=== PATIENT | male | born 1950 | race Caucasian/White ===

== ENCOUNTER 2016-11-01 15:34 | Inpatient (IN) | payer MEDICARE ==
[~2016-11-01] VITALS: Ht 172.7 cm; Wt 76.8 kg
[~2016-11-01 15:34] MED LIST: ASPI81 PO; CLOP75 PO; COMBAER INH; DIGO50SO PO; DOXY100T OR; TRIA.1%T TOP; Z.0.OXYGEN INH; [UNRECOGNIZED DRUG - CODE] XX
[2016-11-01 15:53] VITALS: BP 115/66; PULSE 78; RESP 16
[2016-11-01] MEDS ORDERED: SODIUM CHLORID 0.9% 500 ML INJ 500 ML IV ONE (16:15)
[2016-11-01] MEDS ORDERED: SODIUM CHLORIDE 0.9% FLUSH 10 ML FLUSH IVF PRN (16:15)
--- NOTE | 2016-11-01 16:26 | PD ---
HPI Chief Complaint: General Weakness Time Seen by Provider: 16:18 Travel History International Travel<30 days: No Contact w/Intl Traveler<30days: No Traveled to known affect area: No History of Present Illness HPI Patient is a 65-year-old male presenting to emergency department for evaluation of hypotension, fall, headache. Patient is a poor historian he [facility] he took his medications as he normally would and his blood pressure [facility] the [facility] was 85/55 and he was sent to the emergency department for evaluation. However per EMS report patient had a fall yesterday , and today he continues to have a frontal headache. Patient reports that he is supposed to be on Coumadin but he was not given a prescription upon discharge after he had his stroke 3 weeks ago. Patient has medical records with him that show he supposed be on 10 mg of Coumadin daily when he was discharged from [facility]. Patient went to rehabilitation for 6 days, and signed out AMA. Patient had a CVA with hemorrhage in August. His past medical history also includes hypertension, COPD, hyperlipidemia, congestive heart failure, A. fib, pacemaker defibrillator, CABG. PFSH Past Medical History Hx Anticoagulant Therapy: Yes Arthritis: No Asthma: No Atrial Fibrillation: Yes Autoimmune Disease: No Blood Disorders: No Anxiety: No Depression: No Cancer: No Cardiac Catheterization: Yes High Cholesterol: Yes Chemotherapy: No Chest Pain: Yes Congestive Heart Failure: Yes COPD: Yes Cerebrovascular Accident: Yes Coronary Artery Disease: Yes Diabetes: No Diminished Hearing: No Endocrine: No Gastrointestinal Disorders: No GERD: No Glaucoma: No Genitourinary: No Headaches: No Hepatitis: No Hiatal Hernia: No Hypertension: No Immune Disorder: No Implanted Vascular Access Dvce: Yes Kidney Stones: No Musculoskeletal: No Neurologic: No Psychiatric: No Reproductive: No Respiratory: Yes Migraines: No Myocardial Infarction: Yes Radiation Therapy: No Renal Failure: No Seizures: No Sickle Cell Disease: No Sleep Apnea: No Thyroid Disease: No Ulcer: No PNEUMOCCOCAL Vaccine (Year): 2010 Past Surgical History Abdominal Surgery: No AICD: No Appendectomy: No Arteriovenous Shunt: No Body Medical Devices: CLIENT HAS A TENS UNIT Cardiac Surgery: Yes (CABG) Cholecystectomy: No Coronary Artery Bypass Graft: Yes (QUADRUPLE BYPASS 2006) Ear Surgery: No Endocrine Surgery: No Eye Surgery: No Genitourinary Surgery: No Gynecologic Surgery: No Hysterectomy: Yes Insulin Pump: No Joint Replacement: No Oral Surgery: No Pacemaker: No Thoracic Surgery: No Tonsillectomy: Yes Other Surgery: Yes (CABG-QUADRUPLE) Social History Alcohol Use: Yes (OCCASIONAL BEER) Tobacco Use: No (QUIT SMOKING ABOUT TWELVE MONTHS AGO, smoked for 40 years.) Substance Use: No Allergies-Medications (Allergen,Severity, Reaction): Coded Allergies: No Known Allergies (Verified , 04/17/11) Reported Meds & Prescriptions Reported Meds & Active Scripts Active Review of Systems Except as stated in HPI: all other systems reviewed are Neg General / Constitutional: No: Fever, Chills Eyes: No: Blurred Vision HENT: Positive: Headaches, No: Neck Pain Cardiovascular: Positive: Chest Pain or Discomfort Respiratory: No: Shortness of Breath, Wheezing Gastrointestinal: No: Nausea Genitourinary: No: Urgency Musculoskeletal: No: Myalgias Physical Exam Narrative GENERAL: Well-developed, well-nourished, elderly male. Resting comfortably in no acute distress. SKIN: Focused skin assessment warm/dry. HEAD: Atraumatic. Normocephalic. EYES: Pupils equal and round. No scleral icterus. No injection or drainage. ENT: No nasal bleeding or discharge. Mucous membranes pink and moist. NECK: Trachea midline. No JVD. CARDIOVASCULAR: Regular rate and rhythm. No murmur appreciated. RESPIRATORY: No accessory muscle use. Clear to auscultation. Breath sounds equal bilaterally. GASTROINTESTINAL: Abdomen soft, non-tender, nondistended. Hepatic and splenic margins not palpable. MUSCULOSKELETAL: No obvious deformities. No clubbing. No cyanosis. No edema. NEUROLOGICAL: Awake and alert. No obvious cranial nerve deficits. 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 Slow speech. PSYCHIATRIC: Appropriate mood and affect; insight and judgment normal. Data Data Last Documented VS Vital Signs Date Time Temp Pulse Resp B/P Pulse Ox O2 Delivery O2 Flow Rate FiO2 11/01/16 16:54 76 16 115/65 94 Nasal Cannula 3 Orders Electrocardiogram (11/01/16 16:11) Complete Blood Count With Diff (11/01/16 16:11) Comprehensive Metabolic Panel (11/01/16 16:11) Creatine Kinase (Cpk) (11/01/16 16:11) Prothrombin Time / Inr (Pt) (11/01/16 16:11) Act Partial Throm Time (Ptt) (11/01/16 16:11) Troponin I (11/01/16 16:11) Urinalysis - C+S If Indicated (11/01/16 16:11) Chest, Single Ap (11/01/16 16:11) Ct Brain W/O Iv Contrast(Rout) (11/01/16 16:11) Blood Glucose (11/01/16 16:11) Ecg Monitoring (11/01/16 16:11) Iv Access Insert/Monitor (11/01/16 16:11) Oximetry (11/01/16 16:11) Sodium Chloride 0.9% Flush (Ns Flush) (11/01/16 16:15) Sodium Chlorid 0.9% 500 Ml Inj (Ns 500 M (11/01/16 16:15) Urine Culture (11/01/16 16:42) Consult Neurology (11/01/16 ) Mri Brain W&W/O Contrast (11/01/16 ) Mra Carotids W Contrast (11/01/16 ) Sodium Chlor 0.9% 1000 Ml Inj (Ns 1000 M (11/01/16 18:00) Admit To Inpatient (11/01/16 ) Vital Signs (Adult) Q4H (11/01/16 18:18) Neuro Checks Q4H (11/01/16 18:18) Labs Laboratory Tests Test 11/01/16 11/01/16 16:10 16:42 White Blood Count 7.9 TH/MM3 Red Blood Count 4.68 MIL/MM3 Hemoglobin 13.3 GM/DL Hematocrit 40.8 % Mean Corpuscular Volume 87.3 FL Mean Corpuscular Hemoglobin 28.4 PG Mean Corpuscular Hemoglobin 32.6 % Concent Red Cell Distribution Width 15.7 % Platelet Count 206 TH/MM3 Mean Platelet Volume 8.5 FL Neutrophils (%) (Auto) 65.4 % Lymphocytes (%) (Auto) 21.0 % Monocytes (%) (Auto) 9.5 % Eosinophils (%) (Auto) 3.3 % Basophils (%) (Auto) 0.8 % Neutrophils # (Auto) 5.2 TH/MM3 Lymphocytes # (Auto) 1.7 TH/MM3 Monocytes # (Auto) 0.8 TH/MM3 Eosinophils # (Auto) 0.3 TH/MM3 Basophils # (Auto) 0.1 TH/MM3 CBC Comment DIFF FINAL Differential Comment Prothrombin Time 12.1 SEC Prothromb Time International 1.1 RATIO Ratio Activated Partial 29.2 SEC Thromboplast Time Sodium Level 142 MEQ/L Potassium Level 3.7 MEQ/L Chloride Level 102 MEQ/L Carbon Dioxide Level 31.5 MEQ/L Anion Gap 9 MEQ/L Blood Urea Nitrogen 10 MG/DL Creatinine 0.98 MG/DL Estimat Glomerular Filtration 77 ML/MIN Rate Random Glucose 89 MG/DL Calcium Level 8.6 MG/DL Total Bilirubin 0.5 MG/DL Aspartate Amino Transf 19 U/L (AST/SGOT) Alanine Aminotransferase 13 U/L (ALT/SGPT) Alkaline Phosphatase 65 U/L Total Creatine Kinase 62 U/L Troponin I 0.10 NG/ML Total Protein 6.5 GM/DL Albumin 3.2 GM/DL Urine Color LIGHT-YELLOW Urine Turbidity CLEAR Urine pH 5.0 Urine Specific [place] 1.008 Urine Protein NEG mg/dL Urine Glucose (UA) NEG mg/dL Urine Ketones NEG mg/dL Urine Occult Blood NEG Urine Nitrite NEG Urine Bilirubin NEG Urine Urobilinogen LESS THAN 2.0 MG/DL Urine Leukocyte Esterase NEG Urine WBC LESS THAN 1 /hpf Urine Bacteria RARE /hpf Urine Hyaline Casts 13 /lpf Urine Mucus FEW /lpf Microscopic Urinalysis Comment CATH-CULTURE IND MDM Medical Decision Making Medical Screen Exam Complete: Yes Emergency Medical Condition: Yes Interpretation(s) Vital Signs Date Time Temp Pulse Resp B/P Pulse Ox O2 Delivery O2 Flow Rate FiO2 11/01/16 15:59 93 Nasal Cannula 3 11/01/16 15:53 78 16 115/66 Differential Diagnosis Hemorrhage versus embolism versus hypotension due to medications versus sepsis versus other Narrative Course Patient is a 65-year-old male [facility] for evaluation of hypot[facility]. Additionally patient had a fall yesterday and complains of a headache. Patient is a poor historian, some of this history is obtained from medical records sent with him as well as EMS report. Patient's medical records state that he should have been discharged on Coumadin 10 mg daily, patient states that he was not given any Coumadin to take at home. Patient's vital signs are stable, he is oxygen dependent normally. 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 Patient has slight residual weakness in the left hand. CT today revealed an acute left occipital infarct with possible small focal areas of hemorrhage. This was discussed with Dr. Aubrey masters, he requested MRI of the brain and MRA of the carotids. These orders were placed. Additionally patient's troponin was elevated at 0.10, urine shows rare bacteria with the reflex cultures pending. Chemistry is otherwise unremarkable. CBC is unremarkable. He was given an additional liter of IV fluids, his vital signs remained stable. EKG shows electronic ventricular paced rhythm with a rate of 71. Hospitalist page for admission Dr. Driver return page and was informed of acute findings. She accepted admission, orders placed. Diagnosis Primary Impression: Acute occipital temporal infarction Additional Impressions: Elevated troponin I level COPD (chronic obstructive pulmonary disease) Qualified Code: J44.9 - Chronic obstructive pulmonary disease, unspecified COPD type Hypertension Qualified Code: I10 - Essential hypertension Admitting Information Admitting Physician Requests: Admit Condition: Stable Anna Morrow [facility] Nov 01, 2016 16:26
--- NOTE | 2016-11-01 16:35 | RADRPT ---
EXAM DATE/TIME: 11/01/2016 16:11 [facility] COMPARISON: No previous studies available for comparison. INDICATIONS : Syncope, short of breath, headache, weakness MEDICAL HISTORY : Stroke. Cardiovascular disease. SURGICAL HISTORY : CABG. Coronary artery stent. Pacemaker. ENCOUNTER: Initial ACUITY: 1 day PAIN SCORE: 10/10 LOCATION: Bilateral chest FINDINGS: The cardiac silhouette is normal in transverse diameter. Median sternotomy wires are present. The todd gs are free of acute parenchymal opacity. No effusions are identified. A biventricular defibrillator is in place via a left sided approach. CONCLUSION: 1. Cardiomegaly. No acute pulmonary disease. Santi Estevez MD on November 01, 2016 at 16:33 Board Certified Radiologist. This report was verified electronically.
[2016-11-01 16:52] LABS: AUTOMATED NEUTROPHIL # 5.2 TH/MM3 (1.8-7.7); BASOPHIL # 0.1 TH/MM3 (0-0.2); BASOPHIL % 0.8 % (0.0-2.0); EOSINOPHIL # 0.3 TH/MM3 (0-0.4); EOSINOPHIL % 3.3 % (0.0-4.0); HEMATOCRIT 40.8 % (39.0-51.0); HEMO FLAGS DIFF FINAL; LYMPHOCYTE # 1.7 TH/MM3 (1.0-4.8); MEAN CELL VOLUME 87.3 FL (80.0-100.0); MEAN CORPUSCULAR HEMOGLOBIN 28.4 PG (27.0-34.0); MEAN CORPUSCULAR HGB CONC 32.6 % (32.0-36.0); MONO % 9.5 % (0.0-8.0); NEUT % 65.4 % (16.0-70.0); PLATELET COUNT 206 TH/MM3 (150-450); RED BLOOD COUNT 4.68 MIL/MM3 (4.50-5.90); RED CELL DISTRIBUTION WIDTH 15.7 % (11.6-17.2); WHITE BLOOD COUNT 7.9 TH/MM3 (4.0-11.0)
[2016-11-01 16:54] VITALS: BP 115/65; PULSE 76; RESP 16; O2SAT 94
[2016-11-01 17:11] LABS: ANION GAP 9 MEQ/L (5-15); AST (GOT) 19 U/L (15-37); BICARBONATE 31.5 MEQ/L (21.0-32.0); BLOOD UREA NITROGEN 10 MG/DL (7-18); CHLORIDE 102 MEQ/L (98-107); GLOMERULAR FILTRATION RATE 77 ML/MIN (>89); POTASSIUM 3.7 MEQ/L (3.5-5.1); SODIUM (NA) 142 MEQ/L (136-145)
[2016-11-01 17:14] LABS: APTT (PATIENT) 29.2 SEC (24.3-30.1); INTERNATIONAL NORMALIZED RATIO 1.1 RATIO; PROTHROMBIN TIME - PATIENT 12.1 SEC (9.8-11.6)
[2016-11-01 17:15] LABS: ALKALINE PHOSPHATASE 65 U/L (45-117); ALT (GPT) 13 U/L (12-78); TOTAL BILIRUBIN ADULT 0.5 MG/DL (0.2-1.0)
--- NOTE | 2016-11-01 17:15 | RADRPT ---
EXAM DATE/TIME: 11/01/2016 17:07 [facility] COMPARISON: CT BRAIN W/O CONTRAST, August 24, 2010, 3:23. INDICATIONS : Head trauma with headache. RADIATION DOSE: 41.40 CTDIvol (mGy) MEDICAL HISTORY : Cerebrovascular disease. Stroke SURGICAL HISTORY : None. ENCOUNTER: Initial ACUITY: 2 days PAIN SCALE: 4/10 LOCATION: cranial TECHNIQUE: Multiple contiguous axial images were obtained of the head. Using automated exposure control and adj ustment of the mA and/or kV according to patient size, radiation dose was kept as low as reasonably a chievable to obtain optimal diagnostic quality images. FINDINGS: There are findings of acute infarct involving the mesial left occipital lobe in the left posterior ce rebral artery distribution with scattered areas of increased density which may reflect focal areas of hemorrhage. There is no mass effect or midline shift. No extra-axial fluid collections are identifie d. Old infarct is present in the right cerebellar hemisphere. CONCLUSION: 1. Acute left occipital infarct with possible small focal areas of hemorrhage. Santi Estevez MD on November 01, 2016 at 17:12 Board Certified Radiologist. This report was verified electronically.
[2016-11-01 17:18] LABS: BACTERIA, URINE RARE /hpf; BLOOD, URINE NEG (NEG); GLUCOSE,URINE NEG (NEG); HYALINE CAST, URINE 13 /lpf (RARE); KETONE, URINE NEG (NEG); MUCUS URINE FEW /lpf (OCC); NITRITE,URINE NEG (NEG); URINE COLOR LIGHT-YELLOW (YELLW/STRAW)
[2016-11-01 17:21] LABS: COMMENT (UR) CATH-CULTURE IND; CULTURE IF INDICATED CATH CULTURE IND
[2016-11-01 17:31] LABS: CREATINE KINASE 62 U/L (39-308)
[2016-11-01] MEDS ORDERED: SODIUM CHLOR 0.9% 1000 ML INJ 1,000 ML IV ONE (18:00)
[2016-11-01] MEDS ORDERED: SODIUM CHLORIDE 0.9% FLUSH 10 ML FLUSH IV FLUSH PRN (18:30)
[2016-11-01] MEDS ORDERED: ONDANSETRON HCL 4 MG/2 ML VIAL IVP PRN (18:30)
[2016-11-01] MEDS ORDERED: MAGNESIUM HYDROXIDE SUSP 30 ML CUP PO PRN (18:30)
[2016-11-01] MEDS ORDERED: ACETAMINOPHEN 325 MG TAB PO PRN (18:30)
[2016-11-01 18:45] VITALS: BP 121/74; PULSE 77; RESP 16; O2SAT 98
[2016-11-01 19:00] VITALS: BP 121/66; PULSE 90; RESP 18; TEMP 98.3; O2SAT 99
[2016-11-01] MEDS ORDERED: ASPI81TA11 PO (19:06)
[2016-11-01] MEDS ORDERED: IPRASOL INH (19:06)
[2016-11-01] MEDS ORDERED: LOSA50TA PO (19:06)
[2016-11-01] MEDS ORDERED: SYMB160A INH (19:06)
[2016-11-01] MEDS ORDERED: CARV3.12 PO (19:09)
[2016-11-01] MEDS ORDERED: GUAI400T8 PO (19:13)
[2016-11-01] MEDS ORDERED: POTA1TAB4 PO (19:13)
[2016-11-01] MEDS ORDERED: LISI2.5T3 PO (19:13)
[2016-11-01] MEDS ORDERED: VIAG50TA PO (19:15)
[2016-11-01] MEDS ORDERED: FURO1TAB62 PO (19:16)
--- NOTE | 2016-11-01 20:23 | HHI.HP ---
[facility] Primary Care Physician Unknown Admission Diagnosis CVA, ELEVATED TROPONIN Diagnoses: (1) Elevated troponin I level Diagnosis: Principal (2) Acute occipital temporal infarction Diagnosis: Principal Chief Complaint: ' my blood pressure was low'. Travel History International Travel<30 Days: No Contact w/Intl Traveler <30 Da: No Traveled to Known Affected Are: No History of Present Illness patient is a 65 y/o male with history of recent CVA, CAD- s/p CABG, [facility]. he says that he was recently admitted to the [facility] because of the stroke. he was discharged to rehab and then he went home.he says that he's had some headache and blurred vision over the past few days. he's had some residual weakness of the left arm. he says that he had a [facility] this morning when he was found to be hypotensive for which he was sent to ER. he says that he was told that he would be placed on coumadin but ' he never got it'. he says that he had a fall last night but he denies any prodromal symptoms and he didn't lose the consciousness. he says that he just tripped and fell. Review of Systems Constitutional: DENIES: Fever, Weight loss, Chills, Night Sweats Eyes: COMPLAINS OF: Blurred vision, DENIES: Diplopia, Vision loss, Double Vision Ears, nose, mouth, throat: DENIES: Tinnitus, Vertigo, Throat pain, Epistaxis Respiratory: DENIES: Apneas, Cough, Snoring, Wheezing, Hemoptysis, Sputum production, Shortness of breath Cardiovascular: DENIES: Chest pain, Palpitations, Syncope, Dyspnea on Exertion , PND, Lower Extremity Edema, Orthopnea, Claudication Gastrointestinal: DENIES: Abdominal pain, Black stools, Bloody stools, Constipation, Diarrhea, Nausea, Vomiting, Difficulty Swallowing, Anorexia Genitourinary: DENIES: Urinary frequency, Urgency, Hematuria, Dysuria Musculoskeletal: DENIES: Joint pain, Muscle aches, Stiffness, Joint Swelling Integumentary: DENIES: Rash Neurologic: COMPLAINS OF: Headache, DENIES: Abnormal gait, Localized weakness , Paresthesias, Seizures, Speech Problems, Tremor, Poor Balance Psychiatric: DENIES: Anxiety, Confusion, Mood changes, Depression, Hallucinations, Agitation, Suicidal Ideation, Homicidal Ideation, Delusions Past Family Social History Past Medical History CVA CAD COPD hypertension Past Surgical History CABG Reported Medications losartan lisinopril coreg aspirin symbicort duoneb aspirin Allergies: Coded Allergies: MRI PRECAUTION (Verified Adverse Reaction, Severe, NON COMPATIBLE PACEMAKER 11/01/16 LRS, 11/01/16) Active Ordered Medications Current Medications Sodium Chloride 2 ml 2 ml UNSCH PRN IVF FLUSH AFTER USING IV ACCESS; Start 11/01 at 16:15; Stop 11/01/16 at 19:04; Status DC Sodium Chloride 500 ml @ 500 mls/hr BOLUS ONCE IV Last administered on 16:53; Start 11/01/16 at 16:15; Stop 11/01/16 at 17:14; Status DC Sodium Chloride (NS 1000 ml Inj) 1,000 ml @ 999 mls/hr BOLUS ONCE IV Last administered on 11/01/16 18:55; Start 11/01/16 at 18:00; Stop 11/01/16 at 19:00; Status DC Sodium Chloride (NS Flush) 2 ml UNSCH PRN IV FLUSH FLUSH AFTER USING IV ACCESS ; Start 11/01/16 at 18:30 Sodium Chloride (NS Flush) 2 ml BID IV FLUSH ; Start 11/01/16 at 21:00 Acetaminophen (Tylenol) 650 mg Q4H PRN PO TEMP > 100.4; Start 11/01/16 at 18:30 Ondansetron HCl (Zofran Inj) 4 mg Q6H PRN IVP NAUSEA OR VOMITING; Start at 18:30 Magnesium Hydroxide (Milk Of Magnesia Liq) 30 ml Q12H PRN PO CONSTIPATION; Start 11/01/16 at 18:30 Social History no smoking or drinking. Physical Exam Vital Signs Vital Signs Date Time Temp Pulse Resp B/P Pulse Ox O2 Delivery O2 Flow Rate FiO2 11/01/16 18:45 77 16 121/74 98 Room Air 11/01/16 16:54 76 16 115/65 94 Nasal Cannula 3 11/01/16 15:59 93 Nasal Cannula 3 11/01/16 15:53 78 16 115/66 Physical Exam GENERAL: This is a well-nourished, well-developed patient, in no apparent distress. SKIN: No rashes, ecchymoses or lesions. Cool and dry. HEAD: Atraumatic. Normocephalic. No temporal or scalp tenderness. EYES: Pupils equal round and reactive. Extraocular motions intact. No scleral icterus. No injection or drainage. ENT: Nose without bleeding, purulent drainage or septal hematoma. Throat without erythema, tonsillar hypertrophy or exudate. Uvula midline. Airway patent. NECK: Trachea midline. No JVD or lymphadenopathy. Supple, nontender, no meningeal signs. CARDIOVASCULAR: Regular rate and rhythm without murmurs, gallops, or rubs. RESPIRATORY: Clear to auscultation. Breath sounds equal bilaterally. No wheezes , rales, or rhonchi. GASTROINTESTINAL: Abdomen soft, non-tender, nondistended. No hepato-splenomegaly , or palpable masses. No guarding. MUSCULOSKELETAL: Extremities without clubbing, cyanosis, or edema. No joint tenderness, effusion, or edema noted. No calf tenderness. Negative Homans sign bilaterally. NEUROLOGICAL: Awake and alert. some left arm weakness. Laboratory Laboratory Tests Test 11/01/16 11/01/16 16:10 16:42 White Blood Count 7.9 Red Blood Count 4.68 Hemoglobin 13.3 Hematocrit 40.8 Mean Corpuscular Volume 87.3 Mean Corpuscular Hemoglobin 28.4 Mean Corpuscular Hemoglobin 32.6 Concent Red Cell Distribution Width 15.7 Platelet Count 206 Mean Platelet Volume 8.5 Neutrophils (%) (Auto) 65.4 Lymphocytes (%) (Auto) 21.0 Monocytes (%) (Auto) 9.5 Eosinophils (%) (Auto) 3.3 Basophils (%) (Auto) 0.8 Neutrophils # (Auto) 5.2 Lymphocytes # (Auto) 1.7 Monocytes # (Auto) 0.8 Eosinophils # (Auto) 0.3 Basophils # (Auto) 0.1 CBC Comment DIFF FINAL Differential Comment Prothrombin Time 12.1 Prothromb Time International 1.1 Ratio Activated Partial 29.2 Thromboplast Time Sodium Level 142 Potassium Level 3.7 Chloride Level 102 Carbon Dioxide Level 31.5 Anion Gap 9 Blood Urea Nitrogen 10 Creatinine 0.98 Estimat Glomerular Filtration 77 Rate Random Glucose 89 Calcium Level 8.6 Total Bilirubin 0.5 Aspartate Amino Transf 19 (AST/SGOT) Alanine Aminotransferase 13 (ALT/SGPT) Alkaline Phosphatase 65 Total Creatine Kinase 62 Troponin I 0.10 Total Protein 6.5 Albumin 3.2 Urine Color LIGHT-YELLOW Urine Turbidity CLEAR Urine pH 5.0 Urine Specific [place] 1.008 Urine Protein NEG Urine Glucose (UA) NEG Urine Ketones NEG Urine Occult Blood NEG Urine Nitrite NEG Urine Bilirubin NEG Urine Urobilinogen LESS THAN 2.0 Urine Leukocyte Esterase NEG Urine WBC LESS THAN 1 Urine Bacteria RARE Urine Hyaline Casts 13 Urine Mucus FEW Microscopic Urinalysis Comment CATH-CULTURE IND Date/Time Procedure Status Source Growth 11/01/16 16:42 Urine Culture Received Urine Catheterized Urine Pending Result Diagram: 11/01/16 1610 11/01/16 161 Imaging Last Impressions Head CT 11/01/161610 Signed Impressions: Service Date/Time: Tuesday, November 01, 2016 17:07 - CONCLUSION: 1. Acute left occipital infarct with possible small focal areas of hemorrhage. Santi Estevez MD Chest X-Ray 11/01/161610 Signed Impressions: Service Date/Time: Tuesday, November 01, 2016 16:11 - CONCLUSION: 1. Cardiomegaly. No acute pulmonary disease. Santi Estevez MD Assessment and Plan Assessment and Plan A/P - acute left occipital infarct with small area of hemorrhage continue with neuro-checks- consulted neurology- will consult St/PT will obtain the report of recent admission to [facility] -elevated troponin with history of CAD; no chest pain- will trend the cardiac enzymes- cardiology consulted - hypertension; hold BP meds for now due to low-normal BP's- will monitor and gradually reintroduce the BP meds -COPD with no exacerbation; resume symbicort- neb treatment as needed. -DVT prophylaxis with SCD's Discussed Condition With the patient. Physician Certification 2 Midnight Certification Type: Admission for Inpatient Services Order for Inpatient Services The services are ordered in accordance with Medicare regulations or non- Medicare payer requirements, as applicable. In the case of services not specified as inpatient-only, they are appropriately provided as inpatient services in accordance with the 2-midnight benchmark. Estimated LOS (days): 2 days is the estimated time the patient will need to remain in the hospital, assuming treatment plan goals are met and no additional complications. Post-Hospital Plan: Not yet determined Arlene Blas MD Nov 01, 2016 20:23
[2016-11-01 20:35] VITALS: BP 128/68; PULSE 79; RESP 20; TEMP 97.4; O2SAT 92
[2016-11-01] MEDS ORDERED: RESP: ALBUTEROL 2.5 MG/IPRATROPIUM 0.5 MG NEB (PRN) NEB (21:00)
[2016-11-01] MEDS: SODIUM CHLOR 0.9% 1000 ML INJ 1,000 ML IV SCH (21:00)
[2016-11-01] MEDS: SODIUM CHLORIDE 0.9% FLUSH 10 ML FLUSH IV FLUSH SCH (21:00)
[2016-11-02] VITALS (7 sets, daily range): BP systolic 112–149; BP diastolic 59–77; PULSE 79–103; RESP 16–20; TEMP 97.2–98.7; O2SAT 91–95
[2016-11-02 04:04] LABS: AUTOMATED NEUTROPHIL # 4.5 TH/MM3 (1.8-7.7); BASOPHIL # 0.1 TH/MM3 (0-0.2); EOSINOPHIL # 0.4 TH/MM3 (0-0.4); EOSINOPHIL % 5.4 % (0.0-4.0); HEMO FLAGS DIFF FINAL; LYMPH % 17.7 % (9.0-44.0); LYMPHOCYTE # 1.2 TH/MM3 (1.0-4.8); MEAN CORPUSCULAR HEMOGLOBIN 28.6 PG (27.0-34.0); MEAN CORPUSCULAR HGB CONC 32.8 % (32.0-36.0); NEUT % 65.9 % (16.0-70.0); PLATELET COUNT 189 TH/MM3 (150-450); RED BLOOD COUNT 4.48 MIL/MM3 (4.50-5.90); RED CELL DISTRIBUTION WIDTH 15.7 % (11.6-17.2); WHITE BLOOD COUNT 6.8 TH/MM3 (4.0-11.0)
[2016-11-02 04:26] LABS: BICARBONATE 29.1 MEQ/L (21.0-32.0); POTASSIUM 3.5 MEQ/L (3.5-5.1)
[2016-11-02] MEDS: SODIUM CHLOR 0.9% 1000 ML INJ 1,000 ML IV SCH (06:33)
--- NOTE | 2016-11-02 09:09 | EKG ---
Date Performed: 11/02/2016 Time Performed: 01:34:16 PTAGE: 65 years EKG: A-V sequential pacemaker. Pacemaker rhythm - no further analysis Abnormal ECG PREVIOUS TRACING : 11/01/2016 17.52 DOCTOR: Braydon Shepherd Interpretating Date/Time 11/02/2016 09:08:57
[2016-11-02] MEDS: SODIUM CHLORIDE 0.9% FLUSH 10 ML FLUSH IV FLUSH SCH ×2 (09:11→20:30)
[2016-11-02] MEDS: BUDESONIDE-FORMOTEROL 160/4.5 MCG INHALER INH SCH ×2 (09:11→20:43)
--- NOTE | 2016-11-02 09:53 | EKG ---
Date Performed: 11/01/2016 Time Performed: 17:52:46 PTAGE: 65 years EKG: ELECTRONIC VENTRICULAR PACEMAKER ABNORMAL RHYTHM ECG PREVIOUS TRACING : 06/03/2012 08.44 DOCTOR: Braydon Shepherd Interpretating Date/Time 11/02/2016 09:52:43
--- NOTE | 2016-11-02 12:18 | EKG ---
Date Performed: 11/02/2016 Time Performed: 07:25:38 PTAGE: 65 years EKG: Ventricular pacing. Pacemaker rhythm - no further analysis Abnormal ECG PREVIOUS TRACING : 11/02/2016 01.34 DOCTOR: Braydon Shepherd Interpretating Date/Time 11/02/2016 12:17:11
--- NOTE | 2016-11-02 12:52 | MB ---
cc: CHARISSA MERCER MD DATE OF CONSULTATION: 11/02/2016 REASON FOR CONSULTATION History of ischemic stroke. HISTORY OF PRESENT ILLNESS Mr. Harris is a 65-year-old male who presented to the [facility] Emergency Room for evaluation of low blood pressure, headache and a fall. The patient states that he has had a stroke and was admitted to the [facility] on the first week of August and discharged on the first week of September, which he has little recollection of the events at that time but he knows that he was diagnosed with a stroke. Recently he states that he went to the [facility] and his blood pressure was low at 85/55 and referred to the emergency room for evaluation. The patient states that he is not on antiplatelets however, he should be on "Coumadin" but he did not receive the prescription after he had the stroke. The patient was referred to a rehab center and signed out AMA.The patient states that he feels numb on his left side of the body, "like a Band-Aid on my fingertips". REVIEW OF SYSTEMS A 12-point review of systems is negative except for what is stated in the HPI. PAST MEDICAL HISTORY 1. Hypertension. 2. COPD. 3. Hyperlipidemia. 4. Congestive heart failure. 5. Atrial fibrillation status pacemaker defibrillator. 6. CABG. 7. Ischemic stroke. 8. Coronary artery disease. PAST SURGICAL HISTORY 1. CABG. 2. Quadruple bypass. 3. TENS unit. 4. Tonsillectomy. SOCIAL HISTORY Drinks occasionally beer. Quit smoking 12 months ago. Smoked for 40 years and denies illicit drug abuse. ALLERGIES No known allergies. FAMILY HISTORY Noncontributory. MEDICATIONS 1. Losartan. 2. Lisinopril. 3. Coreg. 4. Aspirin. 5. Symbicort. 6. DuoNeb. PHYSICAL EXAMINATION GENERAL: Awake, alert, poor historian, not in apparent distress. HEENT: Atraumatic, normocephalic. Intact hearing with diminished vision on the right visual field. NECK: Supple. Trachea in the midline. No carotid bruits. CARDIOVASCULAR: Regular rate and rhythm. No murmurs. RESPIRATORY: Clear to auscultation. No added sounds. MUSCULOSKELETAL: Moves all extremities equally without cyanosis or clubbing. NEUROLOGIC: Awake, alert, oriented to time, person and place. Mild slurred and slow speech. Cranial nerves II-XII are grossly intact. Pupils are equal, reacting to light. Normal external ocular motility. No facial asymmetry. However, right-sided visual field is diminished. EXTREMITIES: Upper extremities: 5/5 bilateral and symmetrical. Lower extremities: Questionable 5-/5 right hip flexion inconsistent, reflexes 2+ bilateral and symmetrical. Plantars are bilateral downgoing. Gocfzx-em-lwkt and hsct-av-qjms are bilateral symmetrical. LABORATORY DATA White blood cells 7.9, hemoglobin 13.3, MCV 87.3, INR 1.1, sodium 142, potassium 3.7, anion gap 9, BUN 10, creatinine 0.98, calcium 8.6, GOT 19, GPT 13, CK 62, alkaline phosphatase 65. DIAGNOSTIC IMAGING STUDIES - Head CT scan without contrast revealed findings of acute infarct involving the medial left occipital lobe in the left posterior cerebral artery distribution with scattered areas of increased density which may reflect focal areas of hemorrhage. There is no mass effect or midline shift. No extra-axial fluid collection are identified. Old infarct is present in the right cerebellar hemisphere. DIAGNOSTIC IMPRESSION 1. History of ischemic stroke/no records are available. 2. Hypertension. 3. Hyperlipidemia. 4. Coronary artery disease. 5. History of atrial fibrillation. PLAN 1. Neuro checks q. four hourly. 2. Given the abnormal imaging with possible hemorrhage in the head CT scan, hold anticoagulation and antiplatelets. 3. CTA head with contrast. 4. CTA neck with contrast. 5. Elevate head of bed. 6. DVT prophylaxis with SCDs. 7. Obtain medical records from [facility]. Thank you for the opportunity to participate in the care of your patient. MD AFRICA Salinas/RADHAMES /12:06 PM /12:29 PM MICHAEL
--- NOTE | 2016-11-02 17:04 | MB ---
cc: ANABEL FERRER M.D. DATE OF CONSULTATION: 11/02/2016 REASON FOR THE CARDIOLOGY CONSULT Elevated troponin. HISTORY OF PRESENT ILLNESS This is a 65-year-old white male who was sent in by the [facility] yesterday for a blood pressure of 85 systolic. He denies any dizziness, chest pain or shortness of breath. He was admitted at [facility] last month for left- sided weakness and vision problem on the right side. He went to rehab for a week and was sent home. The day prior to admission the patient was feeding the turtles in the pond and he fell inadvertently, he got up by himself. He denied any chest pain or dizziness at that time. His cardiac history dates back to six years ago, at that time he had open heart surgery, he could not remember how many bypass grafts he might have. A tazg-lnv-n-half ago he had cardiac catheterization and it showed patent graft to the ramus and RCA. Ejection fraction was below 25%. He had biventricular pacemaker put in 5 years ago. He is known to have underlying atrial fibrillation and flutter. He denies any history of hypertension or hyperlipidemia. He was told that he is a borderline diabetic. He was a heavy smoker and quit six years ago. He is a nondrinker. After admission he was found to have borderline elevated troponin. PAST MEDICAL HISTORY 1. Chronic systolic congestive heart failure. 2. Open heart surgery. 3. Frequent PVCs. 4. Biventricular pacemaker implant. 5. Ischemic dilated cardiomyopathy. 6. COPD. 7. Type 2 diabetes. ALLERGIES NONE. FAMILY HISTORY Noncontributory. MEDICATIONS AT HOME 1. Albuterol inhaler. 2. Carvedilol. 3. Combivent. 4. Symbicort. 5. Tramadol. 6. Vitamin D3. 7. SOCIAL HISTORY Ex-smoker and nondrinker. PHYSICAL EXAMINATION VITAL SIGNS: On day of consultation showed blood pressure 121/66, pulse 90 per minute, afebrile. HEAD AND NECK EXAM: Showed normal oral exam. Neck was supple. CHEST: Showed occasional rhonchi at the lung bases. CARDIOVASCULAR: Showed normal neck veins. S1 and S2 decreased. No gross murmur. ABDOMEN: The liver and spleen not palpable. Bowel sounds normal. 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 Moving all four limbs. ASSESSMENT 1. Borderline elevated troponin with no chest pain. 2. No history of ischemic dilated cardiomyopathy and ejection fraction of 25% or less, biventricular ICD implant 5 years ago. 3. Coronary artery bypass surgery with patent saphenous venous graft to the ramus and RCA from cardiac catheterization done a yykr-hze-f-half ago. 4. Type 2 diabetes. 5. Recent admission to the hospital for CVA at [facility]. PLAN At this point with recent CVA documented by a CT scan which is suggestive of acute left occipital infarct with possible small focal area of hemorrhage, I would not recommend proceeding with cardiac catheterization which may involve anticoagulation and stenting. Eventually with the blessing of neurologist he might have to restart on Coumadin or NOAC. AMINTA inhibitor and beta-fred are contraindicated at this point because of the low blood pressure. The IV will be stopped because of the severe ischemic dilated cardiomyopathy and ejection fraction under 25%. The blood pressure now is stabilized. MD NAFISA Rosenbaum/HANK /1:54 PM /4:38 PM MICHAEL
[2016-11-02] MEDS ORDERED: ENALAPRILAT 1.25 MG/ML VIAL IV PUSH PRN (18:00)
--- NOTE | 2016-11-02 18:00 | HHI.PR ---
Subjective Remarks Patient was evaluated earlier today with occupational therapy and present. Patient wishes to eat food. Per RN patient wishes to go home as well. Patient tells me that his vision on the right is not that great and this has been going on and off for a week or so. He thinks he needs to go see an eye doctor to get prescription glasses. He denies any chest pain, palpitations, shortness of breath, nausea or vomiting. Objective Vitals Vital Signs Date Time Temp Pulse Resp B/P Pulse Ox O2 Delivery O2 Flow Rate FiO2 11/02/16 09:27 Nasal Cannula 2.00 11/02/16 04:00 97.6 88 20 137/77 91 11/02/16 00:00 97.2 79 20 125/69 91 11/01/16 23:00 Nasal Cannula 2.00 11/01/16 20:35 97.4 79 20 128/68 92 11/01/16 19:00 98.3 90 18 121/66 99 Room Air 11/01/16 19:00 90 18 97 Room Air 11/01/16 18:45 77 16 121/74 98 Room Air I/O 11/01/16 11/01/16 11/01/16 11/02/16 11/02/16 11/02/16 07:00 15:00 23:00 07:00 15:00 23:00 Output Total 1200 ml Balance -1200 ml Output Urine Total 1200 ml Result Diagram: 11/02/16 0338 11/02/16 0338 Imaging Last Impressions Head CT 11/01/16 1611 Signed Impressions: Service Date/Time: Tuesday, November 01, 2016 17:07 - CONCLUSION: 1. Acute left occipital infarct with possible small focal areas of hemorrhage. Santi Estevez MD Chest X-Ray 11/01/16 1611 Signed Impressions: Service Date/Time: Tuesday, November 01, 2016 16:11 - CONCLUSION: 1. Cardiomegaly. No acute pulmonary disease. Santi Estevez MD Objective Remarks GENERAL: This is a well-nourished, well-developed patient, in no apparent distress. Sitting at the side of the bed. CARDIOVASCULAR: Regular rate and rhythm without murmur. RESPIRATORY: Clear to auscultation. Breath sounds equal bilaterally. No wheezes GASTROINTESTINAL: Abdomen soft, non-tender, nondistended. No guarding. MUSCULOSKELETAL: Visual field exam seems to be affected on the right. Patient tends to always try to look at my fingers instead of looking straight at me during the exam. 55 muscle strength upper and lower extremities however the left upper seems to be slightly weaker than the right. Finger to nose test performed with both upper extremities however he does seem to be a little more hesitant with the left compared to the right. Extremities without clubbing, cyanosis, or edema. 5 out of 5 muscle strength in the lower extremities. NEUROLOGICAL: Awake and alert. A/P Problem List: (1) Elevated troponin I level ICD Code: R74.8 Status: Acute (2) Acute occipital temporal infarction ICD Code: I63.9 Status: Acute Assessment and Plan - acute left occipital infarct with small area of hemorrhage continue with lzhfh-ltwiyf-hfetrjufr following and recommends CT of head and neck which I have ordered. PT/ST/OT following. Records from [facility] have been requested. Hold all anticoagulation including antiplatelet therapy. -elevated troponin with history of CAD; no chest pain-cardiology evaluated the patient at this time recommends holding all fluids to 2 EF of 25%. Hold all bleeding isn't beta blockers due to low blood pressures. He does not recommend cardiac catheter. Monitor. - hypertension; hold BP meds for now due to low-normal BP's- will monitor and gradually reintroduce the BP meds. Added Vasotec as needed for elevated blood pressures. We will await recommendation from neurology on goals for blood pressure -COPD with no exacerbation; on home symbicort- neb treatment as needed. -DVT prophylaxis with SCD's. Chemical anticoagulation contraindicated at this point Discharge Planning DC pending further workup and clinical improvement. Connie Babb MD Nov 02, 2016 18:00
[2016-11-02] MEDS ORDERED: IOHEXOL 350 MG/ML 10 ML VIAL (for RAD DIAG) IV ONE (19:14)
--- NOTE | 2016-11-02 19:59 | RADRPT ---
EXAM DATE/TIME: 11/02/2016 19:12 [facility] COMPARISON: No previous studies available for comparison. INDICATIONS : Recent CVA; evaluate for occlusion. IV CONTRAST: 75 cc Omnipaque 350 (iohexol) IV ; Cumulative dose for multiple exams. RADIATION DOSE: 28.95 CTDIvol (mGy) ; Combined studies MEDICAL HISTORY : Cerebrovascular disease. Cardiovascular disease SURGICAL HISTORY : CABG ENCOUNTER: Initial ACUITY: 2 days PAIN SCALE: 3/10 LOCATION: cranial TECHNIQUE: Volumetric scanning was performed using a multi-row detector CT scanner. The data was post processed with a variety of visualization algorithms including full volume maximum intensity projection, multi -planar sliding thin slab reformation, curved planar reformation, and surface rendering techniques. Using automated exposure control and adjustment of the mA and/or kV according to patient size, radiat ion dose was kept as low as reasonably achievable to obtain optimal diagnostic quality images. FINDINGS: The A1 segment of right anterior cerebral artery is significantly hypoplastic. The right posterior ce rebral artery arises in fashion. The nondominant left vertebral artery appears to terminate in the PICA. There is no evidence of major vessel occlusion or stenosis. No aneurysm or vascular malform ation is identified. CONCLUSION: No acute [place] of [place] vascular findings. Anatomic variants as above Cortez Munguia MD on November 02, 2016 at 19:53 Board Certified Radiologist. This report was verified electronically.
--- NOTE | 2016-11-02 20:05 | RADRPT ---
EXAM DATE/TIME: 11/02/2016 19:12 [facility] COMPARISON: No previous studies available for comparison. INDICATIONS : Recent CVA; evaluate for occlusion. IV CONTRAST: 75 cc Omnipaque 350 (iohexol) IV ; Cumulative dose for multiple exams. RADIATION DOSE: 28.95 CTDIvol (mGy) ; Combined studies MEDICAL HISTORY : Cerebrovascular disease. Cardiovascular disease SURGICAL HISTORY : CABG ENCOUNTER: Initial ACUITY: 2 days PAIN SCALE: 0/10 LOCATION: neck Elevated flow velocities and ICA/CCA ratios have been found to correlate with increased degrees of vessel stenosis, calculated as percentage of diameter relative to a normal segment of distal ICA/CCA. TECHNIQUE: Volumetric scanning was performed using a multirow detector CT scanner. The data was post processed with a variety of visualization algorithms including full-volume maximum intensity projection, multip lanar sliding thin-slab reformation, curved-planar reformation, and surface-rendering techniques. Us ing automated exposure control and adjustment of the mA and/or kV according to patient size, radiatio n dose was kept as low as reasonably achievable to obtain optimal diagnostic quality images. FINDINGS: AORTIC ARCH: There is a three-vessel origin of the great vessels from the aorta. No evidence of ostial narrowing. RIGHT CAROTID: The common carotid artery is intact. The carotid bulb has a normal configuration without ulceration o r narrowing. The internal carotid artery is markedly tortuous in the high neck. The lumen is smooth w ithout stenosis. The external carotid artery is intact. LEFT CAROTID: The common carotid artery is intact. The carotid bulb has a normal configuration without ulceration or narrowing. The internal carotid artery is markedly tortuous in the high neck. There is a small sa ccular aneurysm arising from the medial wall of the vessel at the level of the base of C2. This lesio n measures 5 mm. Otherwise, the vessel is intact and without stenosis. The external carotid artery i s intact. VERTEBRALS: The vertebral arteries are patent bilaterally, right side dominant CONCLUSION: No evidence of carotid stenosis. 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 There is no evidence of stenosis or dissection. Cortez Munguia MD on November 02, 2016 at 19:57 Board Certified Radiologist. This report was verified electronically.
[2016-11-03] VITALS (7 sets, daily range): BP systolic 105–129; BP diastolic 63–78; PULSE 71–92; RESP 18–20; TEMP 94.6–97.6; O2SAT 94–95
[2016-11-03] MEDS: SODIUM CHLORIDE 0.9% FLUSH 10 ML FLUSH IV FLUSH SCH ×2 (09:00→20:03)
[2016-11-03] MEDS: BUDESONIDE-FORMOTEROL 160/4.5 MCG INHALER INH SCH ×2 (09:00→20:04)
--- NOTE | 2016-11-03 11:33 | PD.CARD.PN ---
Subjective Subjective Remarks hypotension resolved, no CP or SOB, poor recent memory boone about his meds at home Objective Vital Signs / I&O Vital Signs Date Time Temp Pulse Resp B/P Pulse Ox O2 Delivery O2 Flow Rate FiO2 11/03/16 04:49 97.4 75 18 105/64 95 11/03/16 00:34 97.6 92 18 127/78 95 11/02/16 21:20 98.7 86 20 124/62 95 11/02/16 20:00 Nasal Cannula 2.00 11/02/16 20:00 103 11/02/16 16:00 97.5 92 16 149/61 93 11/02/16 12:00 97.9 85 16 136/73 92 I/O 11/02/16 11/02/16 11/02/16 11/03/16 11/03/16 11/03/16 07:00 15:00 23:00 07:00 15:00 23:00 Intake Total 550 ml 600 ml Output Total 1200 ml 2000 ml 800 ml Balance -1200 ml -1450 ml -200 ml Intake Oral 550 ml 600 ml Output Urine Total 1200 ml 2000 ml 800 ml # Bowel Movements 0 0 Physical Exam GENERAL: SKIN: Warm and dry. HEAD: Normocephalic. EYES: No scleral icterus. No injection or drainage. NECK: Supple, trachea midline. No JVD or lymphadenopathy. CARDIOVASCULAR: Regular rate and rhythm without murmurs, gallops, or rubs. RESPIRATORY: Breath rhonchi lung bases. No accessory muscle use. GASTROINTESTINAL: Abdomen soft, non-tender, nondistended. MUSCULOSKELETAL: No cyanosis, or edema. BACK: Nontender without obvious deformity. No CVA tenderness. Assessment and Plan Problem List: (1) COPD (chronic obstructive pulmonary disease) (2) Acute occipital temporal infarction (3) Elevated troponin I level Assessment and Plan: no CP or SOB, elevated trop can be secondary to CVA, will not repeat cath at this point (4) Hypotension (arterial) Assessment and Plan: he may be confused with his meds. At home he was taking both ACI and ARB. Today BP above 139 systolic, will restart 5 mg of lisinopril, gradually reintroduce coreg if BP permits (5) Chronic systolic CHF (congestive heart failure) Assessment and Plan: start lisinopril today (6) S/P ICD (internal cardiac defibrillator) procedure Problem Qualifiers (1) COPD (chronic obstructive pulmonary disease): Qualified Code: J44.9 - Chronic obstructive pulmonary disease, unspecified COPD type Jude Germain MD Nov 03, 2016 11:32
[2016-11-03] MEDS: LISINOPRIL 5 MG TAB PO SCH (12:00)
--- NOTE | 2016-11-03 12:27 | HHI.PR ---
Subjective Remarks Patient states he is feeling well. Denies any chest pain, shortness of breath, nausea or vomiting. He does not remember why he is on Coumadin. 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 Mart and he usually sees him every 3 months. Objective Vitals Vital Signs Date Time Temp Pulse Resp B/P Pulse Ox O2 Delivery O2 Flow Rate FiO2 11/03/16 04:49 97.4 75 18 105/64 95 11/03/16 00:34 97.6 92 18 127/78 95 11/02/16 21:20 98.7 86 20 124/62 95 11/02/16 20:00 Nasal Cannula 2.00 11/02/16 20:00 103 11/02/16 16:00 97.5 92 16 149/61 93 I/O 11/02/16 11/02/16 11/02/16 11/03/16 11/03/16 11/03/16 07:00 15:00 23:00 07:00 15:00 23:00 Intake Total 550 ml 600 ml Output Total 1200 ml 2000 ml 800 ml Balance -1200 ml -1450 ml -200 ml Intake Oral 550 ml 600 ml Output Urine Total 1200 ml 2000 ml 800 ml # Bowel Movements 0 0 Result Diagram: 11/02/16 0338 11/02/16 0338 Imaging Last Impressions Neck CTA 11/02/16 0000 Signed Impressions: Service Date/Time: Wednesday, November 02, 2016 19:12 - CONCLUSION: No evidence of carotid stenosis. 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 There is no evidence of stenosis or dissection. Cortez Munguia MD Head CTA 11/02/16 0000 Signed Impressions: Service Date/Time: Wednesday, November 02, 2016 19:12 - CONCLUSION: No acute [place] of [place] vascular findings. Anatomic variants as above Cortez Munguia MD Head CT 11/01/16 1611 Signed Impressions: Service Date/Time: Tuesday, November 01, 2016 17:07 - CONCLUSION: 1. Acute left occipital infarct with possible small focal areas of hemorrhage. Santi Estevez MD Chest X-Ray 11/01/16 1611 Signed Impressions: Service Date/Time: Tuesday, November 01, 2016 16:11 - CONCLUSION: 1. Cardiomegaly. No acute pulmonary disease. Santi Estevez MD Objective Remarks GENERAL: This is a well-nourished, well-developed patient, in no apparent distress. Sitting at the side of the bed. CARDIOVASCULAR: Regular rate and rhythm without murmur. RESPIRATORY: Clear to auscultation. Breath sounds equal bilaterally. No wheezes GASTROINTESTINAL: Abdomen soft, non-tender, nondistended. No guarding. MUSCULOSKELETAL: Visual field exam not performed today. Using walker to ambulate in the room NEUROLOGICAL: Awake and alert. A/P Problem List: (1) Elevated troponin I level ICD Code: R74.8 Status: Acute (2) Acute occipital temporal infarction ICD Code: I63.9 Status: Acute Assessment and Plan - acute left occipital infarct with small area of hemorrhage continue with [id number] following. CT head and neck were reviewed and were negative. PT/ST/OT evaluated the patient. He will need outpatient occupational therapy. Records from [facility] (discharge summary) have been reviewed. I have discussed the case with both Dr. Germain (air brakes inspector) and Dr. Castillo (neurologist). Dr. Krishnamurthy confirms that patient does have underlying A. fib/atrial flutter and requires anticoagulation however he needs clearance from neurology prior to starting it. He recommends restarting it at 2.5 mg daily once cleared by neurology. I also discussed the case with Dr. Castillo and he has cleared pt to restart the coumadin at a lower dose i.e. 2.5mg po daily starting tonight. Pt will be monitored overnight, in addition, he would like the patient to have a BP <140's. -elevated troponin with history of CAD:Pt denies any chest pain. -cardiology recommends holding all fluids due to EF of 25%. has restarted pt on low dose lisinopril. no cardiac cath planned at this time. - hypertension; monitor BP's overnight and cards will slowly introduce coreg back to BP regimen if pt tolerates it in the morning. Goal is BP<140's -COPD with no exacerbation; on home symbicort- neb treatment as needed. -DVT prophylaxis with SCD's. start coumadin 2.5mg po daily Discharge Planning pt has been restarted on coumadin today. monitor overnight for any changes in neuro status. Coreg to be introduced tomorrow to BP regimen. monitor BP's. if stable, can be d/c tomorrow. f/u w cards and neuro as an outpatient script for outpatient OT in chart Connie Babb MD Nov 03, 2016 12:27
[2016-11-03] MEDS ORDERED: WARFARIN SOD 2.5 MG TAB PO ONE (18:00)
--- NOTE | 2016-11-03 21:33 | HHI.PR ---
Review/Management Diagnosis 1. History of ischemic stroke/no records are available Left occipital ischemic infarction, evident on head CT scan, MRI can not be done due to cardiac pacemaker in place. 2 Hypertension. 3. Hyperlipidemia. 4. Coronary artery disease. 5. History of atrial fibrillation. Plan - Discussed at length with the attending physician Dr. Babb, the plan of care, after she touched base with tailings man, agreement on starting patient on Coumadin and maintenance of BP 135-140/80-85 - When I stopped by to see patient, he mentioned that in 2008, he was hospitalized at [facility] for cardiac procedure, and that the hospital stay was prolonged from an initial estimate f 4 days to 24 days, some of which were in the ICU, and he thinks that ' Coumadin' was the reason, where he has had a complication that he was not able to recall, hence, I called Dr. Babb to make her aware, d/c Coumadin, until a clear verification is attained. - Patient will need to be on A/C whether Coumadin or NOAC for A fib, and recent ischemic stroke - Neurologic exam is stable - Follow up with outpatient neurology - Please call for questions Diagnosis/Plan: Subjective Subjective Comments No acute events reported CTA head & neck were unremarkable Stable neurologic exam No new complaints Active Medications Current Medications Medications (Trade) Dose Ordered Sig/Leticia Route Start Time Stop Time Status Last Admin (NS Flush) 2 ml UNSCH PRN IV FLUSH 11/01/16 18:30 (NS Flush) 2 ml BID IV FLUSH 11/01/16 21:00 11/03/16 20:03 (Tylenol) 650 mg Q4H PRN PO 11/01/16 18:30 (Zofran Inj) 4 mg Q6H PRN IVP 11/01/16 18:30 (Milk Of Magnesia Liq) 30 ml Q12H PRN PO 11/01/16 18:30 (Symbicort 160-4.5 Inh) 2 puff Q12HR INH 11/01/16 21:00 11/03/16 09:00 (Vasotec Inj) 1.25 mg Q6H PRN IV PUSH 11/02/16 18:00 (Prinivil) 5 mg DAILY PO 11/03/16 12:00 (Aldactone) 25 mg DAILY PO 11/04/16 09:00 Allergies Allergies Coded Allergies MRI PRECAUTION (Verified Adverse Reaction, Severe, NON COMPATIBLE PACEMAKER LRS, 11/01/16) Exam I&O / VS 11/02/16 11/02/16 11/03/16 15:00 23:00 07:00 Intake Total 550 ml 600 ml Output Total 2000 ml 800 ml Balance -1450 ml -200 ml Intake Oral 550 ml 600 ml Output Urine Total 2000 ml 800 ml # Bowel Movements 0 0 Vital Signs Date Time Temp Pulse Resp B/P Pulse Ox O2 Delivery O2 Flow Rate FiO2 11/03/16 16:00 97.4 88 20 129/65 95 11/03/16 12:00 97.3 92 20 113/64 95 11/03/16 09:58 71 11/03/16 09:58 Nasal Cannula 2.00 11/03/16 08:00 94.6 74 20 117/76 94 11/03/16 04:49 97.4 75 18 105/64 95 11/03/16 00:34 97.6 92 18 127/78 95 Exam Comments GENERAL: Awake, alert, sits on a chair, eating dinner, not in apparent distress. HEENT: Atraumatic, normocephalic. Intact hearing with diminished vision on the right visual field. NECK: Supple. Trachea in the midline. No carotid bruits. CARDIOVASCULAR: Regular rate and rhythm. No murmurs. RESPIRATORY: Clear to auscultation. No added sounds. MUSCULOSKELETAL: Moves all extremities equally without cyanosis or clubbing. NEUROLOGIC: Awake, alert, oriented to time, person and place. Mild slurred and slow speech. Cranial nerves II-XII are grossly intact. Pupils are equal, reacting to light. Normal external ocular motility. No facial asymmetry. However, right-sided visual field is diminished. EXTREMITIES: Upper extremities: 5/5 bilateral and symmetrical. Lower extremities: Questionable 5-/5 right hip flexion inconsistent, reflexes 2+ bilateral and symmetrical. Plantars are bilateral downgoing. Bvyoas-xr-mnhs and gemy-jp-vnxc are bilateral symmetrical. Objective Radiology Results Last 72 hours Impressions Neck CTA 11/02/16 0000 Signed Impressions: Service Date/Time: Wednesday, November 02, 2016 19:12 - CONCLUSION: No evidence of carotid stenosis. 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 There is no evidence of stenosis or dissection. Cortez Munguia MD Head CTA 11/02/16 0000 Signed Impressions: Service Date/Time: Wednesday, November 02, 2016 19:12 - CONCLUSION: No acute soboba of Jackman vascular findings. Anatomic variants as above Cortez Munguia MD Head CT 11/01/16 1611 Signed Impressions: Service Date/Time: Tuesday, November 01, 2016 17:07 - CONCLUSION: 1. Acute left occipital infarct with possible small focal areas of hemorrhage. Santi Estevez MD Chest X-Ray 11/01/16 1611 Signed Impressions: Service Date/Time: Tuesday, November 01, 2016 16:11 - CONCLUSION: 1. Cardiomegaly. No acute pulmonary disease. Santi Estevez MD Micro and Labs Date/Time Procedure Status Source Growth 11/01/16 16:42 Urine Culture - Final Complete Urine Catheterized Urine NO GROWTH IN 48 HOURS. Serge Castillo MD Nov 03, 2016 21:33
[2016-11-04 00:15] VITALS: BP 96/57; PULSE 71; RESP 18; TEMP 97.8; O2SAT 96
[2016-11-04 05:42] VITALS: BP 106/63; PULSE 83; RESP 18; TEMP 97.8; O2SAT 94
[2016-11-04 08:00] VITALS: BP 106/59; PULSE 84; RESP 18; TEMP 97.5; O2SAT 93
[2016-11-04] MEDS: SODIUM CHLORIDE 0.9% FLUSH 10 ML FLUSH IV FLUSH SCH (08:39)
[2016-11-04] MEDS: BUDESONIDE-FORMOTEROL 160/4.5 MCG INHALER INH SCH (08:40)
[2016-11-04] MEDS: LISINOPRIL 5 MG TAB PO SCH (08:45)
[2016-11-04] MEDS ORDERED: SPIRONOLACTONE 25 MG TAB PO SCH (09:00)
[2016-11-04] MEDS ORDERED: WARF-18 PO (09:11)
--- NOTE | 2016-11-04 09:11 | HHI.DCPOC ---
Discharge Care Plan Diagnosis: (1) Acute occipital temporal infarction (2) Elevated troponin I level (3) COPD (chronic obstructive pulmonary disease) (4) Hypotension (arterial) (5) Chronic systolic CHF (congestive heart failure) Goals to Promote Your Health * To prevent worsening of your condition and complications * To maintain your health at the optimal level Directions to Meet Your Goals Take your medications as prescribed Follow your dietary instruction Follow activity as directed Keep your appointments as scheduled Take your immunizations and boosters as scheduled If your symptoms worsen call your PCP, if no PCP go to Urgent Care Center or Emergency Room Smoking is Dangerous to Your Health. Avoid second hand smoke Call the 24-hour hour crisis hotline for domestic abuse at Casey Shaw MD Nov 04, 2016 09:11
--- NOTE | 2016-11-04 09:15 | HHI.FF ---
Face to Face Verification Diagnosis: (1) Acute occipital temporal infarction (2) Elevated troponin I level (3) COPD (chronic obstructive pulmonary disease) (4) Hypotension (arterial) (5) Chronic systolic CHF (congestive heart failure) Physical Therapy Order: Evaluate and Treat, Improve ambulation, Strength and gait training Home Health Nursing Order: Medical education Signs/symptoms of disease process Medication education-adverse effect Nursing assessment with vital signs I have seen patient Chaka Harris on 11/04/16. My clinical findings support the need for the requested home health care services because: Med compliance is questionable Limited ability to care for self Need for psychosocial assistance I certify that my clinical findings support that this patient is homebound because: Unsteady gait/balance Need for psychosocial assistance Casey Shaw MD Nov 04, 2016 09:15
--- NOTE | 2016-11-04 09:15 | HHI.DS ---
Discharge Summary Admission Date Nov 01, 2016 at 18:21 Discharge Date: Nov 04, 2016 Admitting Diagnosis CVA, ELEVATED TROPONIN (1) Elevated troponin I level ICD Code: R74.8 Diagnosis: Principal (2) Acute occipital temporal infarction ICD Code: I63.9 Diagnosis: Principal Procedures None Brief History - From Admission History of present illness from the admitting physician patient is a 65 y/o male with history of recent CVA, CAD- s/p CABG, [facility]. he says that he was recently admitted to the [facility] because of the stroke. he was discharged to rehab and then he went home.he says that he's had some headache and blurred vision over the past few days. he's had some residual weakness of the left arm. he says that he had [facility] this morning when he was found to be hypotensive for which he was sent to ER. he says that he was told that he would be placed on Coumadin but ' he never got it'. he says that he had a fall last night but he denies any prodromal symptoms and he didn't lose the consciousness. he says that he just tripped and fell. CBC/BMP: 11/02/16 0338 11/02/16 0338 Significant Findings Laboratory Tests Test 11/01/16 11/01/16 11/02/16 11/02/16 16:10 16:42 00:13 03:38 Monocytes (%) (Auto) 9.5 % (0.0-8.0) 10.0 % (0.0-8.0) Prothrombin Time 12.1 SEC (9.8-11.6) Estimat Glomerular Filtration 77 ML/MIN (>89) Rate Troponin I 0.10 NG/ML 0.11 NG/ML 0.12 NG/ML (0.02-0.05) (0.02-0.05) (0.02-0.05) Albumin 3.2 GM/DL (3.4-5.0) Urine Bacteria RARE /hpf (NONE) Urine Mucus FEW /lpf (OCC) Red Blood Count 4.48 MIL/MM3 (4.50-5.90) Hemoglobin 12.8 GM/DL (13.0-17.0) Eosinophils (%) (Auto) 5.4 % (0.0-4.0) Blood Urea Nitrogen 6 MG/DL (7-18) Calcium Level 8.3 MG/DL (8.5-10.1) Imaging Last Impressions Neck CTA 11/02/16 0000 Signed Impressions: Service Date/Time: Wednesday, November 02, 2016 19:12 - CONCLUSION: No evidence of carotid stenosis. 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 There is no evidence of stenosis or dissection. Cortez Munguia MD Head CTA 11/02/16 0000 Signed Impressions: Service Date/Time: Wednesday, November 02, 2016 19:12 - CONCLUSION: No acute cabazon of Jackman vascular findings. Anatomic variants as above Cortez Munguia MD Head CT 11/01/16 1611 Signed Impressions: Service Date/Time: Tuesday, November 01, 2016 17:07 - CONCLUSION: 1. Acute left occipital infarct with possible small focal areas of hemorrhage. Santi Estevez MD Chest X-Ray 11/01/16 1611 Signed Impressions: Service Date/Time: Tuesday, November 01, 2016 16:11 - CONCLUSION: 1. Cardiomegaly. No acute pulmonary disease. Santi Estevez MD PE at Discharge GENERAL: This is a well-nourished, well-developed patient, in no apparent distress. Sitting at the side of the bed. CARDIOVASCULAR: Regular rate and rhythm without murmur. RESPIRATORY: Clear to auscultation. Breath sounds equal bilaterally. No wheezes GASTROINTESTINAL: Abdomen soft, non-tender, nondistended. No guarding. MUSCULOSKELETAL: Visual field exam not performed today. Using walker to ambulate in the room NEUROLOGICAL: Awake and alert. Pt update on day of discharge Discussed reported Coumadin issue at length with the patient. He cannot recall any specific issue with Coumadin. He reports that he was in this Hospital for an extended period after his CABG. This was in 2006, not 2008 as he reported. I reviewed the medical records extensively and apparently he had post op respiratory failure and pneumonia which complicated his Hospital stay. He was diagnosed with A-fib as well and was on Coumadin. There were no reported issues with Coumadin. From extensive discussion with the patient, it was apparent that he requires a lot of explaining but he appear to have capacity to make decisions. I did offer other newer anticoagulant options but he rather use Coumadin. He states he will follow up at the [facility] regularly. Hospital Course 65-year-old male admitted and treated for the following: Acute left occipital infarct with small area of hemorrhage: The patient was followed by neurology. Apparently he has a history of A. fib. He was recently discharged from [facility] after having a stroke. He was put on Coumadin but never restarted the medication. The patient did not any focal weakness. He was also followed by cardiology. Both neurology and cardiology agreed that he needed to be anticoagulated. The patient was under the impression he had a reaction with Coumadin but could not elaborate. Review of records showed he tolerated, and while he was in the hospital back in 2006. He was offered urine anticoagulant options but he opted to use Coumadin instead. He will follow-up [facility] for regular check and titration of Coumadin dosing. He was restarted on a low dose of Coumadin 2.5 mg daily. Elevated troponin with history of CAD: Pt. was followed by cardiology. Patient continued on aspirin. No heart catheterization pursued at this time. Patient' s blood pressure was too low to tolerate AMINTA inhibitor or beta blockers. He is advised to follow-up outpatient with cardiology and these medications can be restarted as tolerated. Hypertension: Patient remained normotensive with just spironolactone. He was unable to tolerate aminta inhibitors or Coreg. 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 COPD with no exacerbation; on home Symbicort. Pt Condition on Discharge: Good Discharge Disposition: Disch w/ Home Health Serv Discharge Time: > 30 minutes Discharge Instructions DIET: Follow Instructions for: Heart Healthy Diet, Coumadin (Warfarin) Diet Activities you can perform: See Additionl Instruction Other Activity Instructions: Per PT instructions. Follow up Referrals: Cardiology - 1 Week with Jude Germain MD Neurology - 1 Week with Serge Castillo MD Referral - Next Day with PCP at the [facility] New Medications: Warfarin (Warfarin) 2.5 Mg Tab 2.5 MG PO DAILY Blood Clot Prevention #30 Ref 0 TAB Continued Medications: Aspirin DR (Aspirin EC) 81 Mg Tabdr 81 MG PO DAILY Ref 0 TAB Budesonide-Formoterol Inh (Symbicort Inh) 160-4.5 Mcg/Act Aero 2 PUFF INH Q12HR #1 Ref 0 INHALER Furosemide (Lasix) 20 Mg Tab 20 MG PO DAILY #30 Ref 0 TAB Ipratropium-Albuterol Neb (Duoneb) 0.5-2.5 Mg/3 Ml Neb 1 NEBULE INH QID PRN SHORTNESS OF BREATH #120 Ref 0 NEBULE Discontinued Medications: Carvedilol (Carvedilol) 3.125 Mg Tab 3.125 MG PO BID HEART #60 Ref 0 TAB Guaifenesin (Guaifenesin) 400 Mg Tab 400 MG PO Q6HR PRN TO THIN MUCUS Lisinopril (Lisinopril) 2.5 Mg Tab 2.5 MG PO DAILY #30 Ref 0 TAB Losartan (Losartan) 50 Mg Tab 50 MG PO DAILY Blood Pressure Management #30 Ref 0 TAB Potassium Chloride ER (K-Tab) 20 Meq Tab 20 MEQ PO DAILY Electrolyte Replacement #30 Ref 0 TAB Sildenafil (Viagra) 50 Mg Tab 50 MG PO DAILY PRN ERECTILE DYSFUNCTION Ref 0 TAB Casey Shaw MD Nov 04, 2016 09:15
[2016-11-04 12:00] VITALS: BP 110/63; PULSE 83; RESP 18; TEMP 98.3; O2SAT 93
[2016-11-04] MEDS ORDERED: WARFARIN SOD 2.5 MG TAB PO SCH (16:00)
== END 2016-11-04 13:34 | disposition home health service (06) | DRG 65 ==
LOC: NEPA 15:34 → NEDA 18:21 → N04A 20:30
PROVIDERS: ADMIT Family Medicine; ATTEND Family Medicine
DX: I61.1 Nontraumatic intracerebral hemorrhage in hemisphere, cortical (principal); I50.22 Chronic systolic (congestive) heart failure; I95.9 Hypotension, unspecified; I42.0 Dilated cardiomyopathy; I48.91 Unspecified atrial fibrillation; I48.92 Unspecified atrial flutter; I69.954 Hemiplegia and hemiparesis following unspecified cerebrovascular disease affecting left non-dominant side; I11.0 Hypertensive heart disease with heart failure; J44.9 Chronic obstructive pulmonary disease, unspecified; E78.5 Hyperlipidemia, unspecified; I25.10 Atherosclerotic heart disease of native coronary artery without angina pectoris; I25.2 Old myocardial infarction; I49.3 Ventricular premature depolarization; I25.5 Ischemic cardiomyopathy; E11.9 Type 2 diabetes mellitus without complications; R74.8 Abnormal levels of other serum enzymes; Z87.891 Personal history of nicotine dependence; Z95.0 Presence of cardiac pacemaker; Z95.1 Presence of aortocoronary bypass graft; Z99.81 Dependence on supplemental oxygen
CPT/HCPCS: 70450; 70496; 70498; 71010; 80048; 80053; 81001; 82550; 82948; 84484; 85025; 85610; 85730; 87086; 93005; J7030; J7040; Q9967

== ENCOUNTER 2017-01-03 15:03 | Inpatient (IN) | payer MEDICARE ==
[~2017-01-03] VITALS: Ht 172.7 cm; Wt 78.3 kg
[2017-01-03] VITALS (8 sets, daily range): BP systolic 115–128; BP diastolic 71–83; PULSE 68–88; RESP 15–18; TEMP 97.5–97.6; O2SAT 93–96
[~2017-01-03 15:03] MED LIST changes: -ASPI81 PO; +ASPI81TA11 PO; -CLOP75 PO; -COMBAER INH; -DIGO50SO PO; -DOXY100T OR; +FURO1TAB62 PO; +IPRASOL INH; +SYMB160A INH; -TRIA.1%T TOP; +WARF-18 PO; -Z.0.OXYGEN INH; -[UNRECOGNIZED DRUG - CODE] XX
[2017-01-03] MEDS ORDERED: SODIUM CHLORIDE 0.9% FLUSH 10 ML FLUSH IVF PRN (15:45)
[2017-01-03] MEDS ORDERED: SODIUM CHLORID 0.9% 500 ML INJ 500 ML IV ONE (15:45)
[2017-01-03 16:06] LABS: BASOPHIL # 0.1 TH/MM3 (0-0.2); BASOPHIL % 0.7 % (0.0-2.0); EOSINOPHIL # 0.1 TH/MM3 (0-0.4); EOSINOPHIL % 0.6 % (0.0-4.0); HEMATOCRIT 41.6 % (39.0-51.0); HEMO FLAGS DIFF FINAL; LYMPH % 13.5 % (9.0-44.0); LYMPHOCYTE # 1.2 TH/MM3 (1.0-4.8); MEAN CELL VOLUME 87.3 FL (80.0-100.0); MEAN CORPUSCULAR HEMOGLOBIN 28.6 PG (27.0-34.0); MEAN CORPUSCULAR HGB CONC 32.8 % (32.0-36.0); MONO % 7.5 % (0.0-8.0); NEUT % 77.7 % (16.0-70.0); PLATELET COUNT 209 TH/MM3 (150-450); RED BLOOD COUNT 4.76 MIL/MM3 (4.50-5.90); RED CELL DISTRIBUTION WIDTH 14.8 % (11.6-17.2)
[2017-01-03 16:16] LABS: APTT (PATIENT) 30.3 SEC (24.3-30.1); INTERNATIONAL NORMALIZED RATIO 1.1 RATIO
[2017-01-03 16:26] LABS: ALKALINE PHOSPHATASE 65 U/L (45-117); CREATINE KINASE 135 U/L (39-308); TOTAL BILIRUBIN ADULT 0.8 MG/DL (0.2-1.0)
--- NOTE | 2017-01-03 16:26 | RADRPT ---
EXAM DATE/TIME: 01/03/2017 15:49 [facility] COMPARISON: CTA BRAIN W 3D RECON, November 02, 2016, 19:12. CT BRAIN W/O CONTRAST, November 01, 2016, 17:07. INDICATIONS : Chest pain and dizzy elevated blood pressure,some confusion. RADIATION DOSE: 56.35 CTDIvol (mGy) MEDICAL HISTORY : Cardiovascular disease. Cerebrovascular disease. Chronic obstructive pulmonary disease. SURGICAL HISTORY : CABG Pacemaker. ENCOUNTER: Initial ACUITY: 1 day PAIN SCALE: 0/10 LOCATION: cranial TECHNIQUE: Multiple contiguous axial images were obtained of the head. Using automated exposure control and adj ustment of the mA and/or kV according to patient size, radiation dose was kept as low as reasonably a chievable to obtain optimal diagnostic quality images. FINDINGS: CEREBRUM: Evolution of previously noted left occipital mid to low convexity infarct. Left subinsular hypodensit y likely reflecting a small lacunar infarct. Remaining underwood-white matter differentiation is intact. T he ventricles are normal for age. No evidence of midline shift, mass lesion, hemorrhage or acute inf arction. No extra-axial fluid collections are seen. POSTERIOR FOSSA: The cerebellum and brainstem are intact. The 4th ventricle is midline. The cerebellopontine angle i s unremarkable. EXTRACRANIAL: The visualized portion of the orbits is intact. SKULL: The calvaria is intact. Minimal mucosal fossa thickening involving the left maxillary sinus. Remainin g paranasal sinuses and mastoid air cells are clear. No evidence of skull fracture. CONCLUSION: 1. Evolving left occipital infarct. 2. No acute intracranial abnormality. Vasu Gil MD on January 03, 2017 at 16:19 Board Certified Radiologist. This report was verified electronically.
[2017-01-03 16:27] LABS: ALT (GPT) 14 U/L (12-78); ANION GAP 8 MEQ/L (5-15); AST (GOT) 23 U/L (15-37); BICARBONATE 27.2 MEQ/L (21.0-32.0); BLOOD UREA NITROGEN 14 MG/DL (7-18); CHLORIDE 105 MEQ/L (98-107); GLOMERULAR FILTRATION RATE 67 ML/MIN (>89); MAGNESIUM 2.3 MG/DL (1.5-2.5); POTASSIUM 4.2 MEQ/L (3.5-5.1); SODIUM (NA) 140 MEQ/L (136-145)
[2017-01-03] MEDS ORDERED: ACETAMINOPHEN 325 MG TAB PO ONE (16:30)
--- NOTE | 2017-01-03 16:38 | RADRPT ---
EXAM DATE/TIME: 01/03/2017 15:46 [facility] COMPARISON: CHEST SINGLE AP, November 01, 2016, 16:11. INDICATIONS : Chest pain. MEDICAL HISTORY : Stroke. Cardiovascular disease. SURGICAL HISTORY : CABG. Coronary artery stent. Pacemaker. ENCOUNTER: Initial ACUITY: 1 day PAIN SCORE: 0/10 LOCATION: Bilateral chest FINDINGS: The lungs are symmetrically aerated and clear. No evidence of pneumothorax. The heart is stable in size. Evidence of prior median sternotomy and CABG. Bipolar pacer leads unchanged. CONCLUSION: The lungs are clear. Harley Perry MD on January 03, 2017 at 16:32 Board Certified Radiologist. This report was verified electronically.
[2017-01-03 16:39] LABS: CKMB 2.6 NG/ML (0.5-3.6)
[2017-01-03] MEDS ORDERED: BUTATAB6 PO (17:07)
[2017-01-03] MEDS ORDERED: VITA100018 PO (17:07)
[2017-01-03] MEDS ORDERED: PRED5TAB PO (17:09)
[2017-01-03] MEDS ORDERED: TRAM50TA PO (17:09)
--- NOTE | 2017-01-03 17:25 | PD ---
HPI Chief Complaint: Chest Pain Time Seen by Provider: 15:23 Travel History International Travel<30 days: No Contact w/Intl Traveler<30days: No Traveled to known affect area: No History of Present Illness HPI Patient is a 66-year-old male with history of A. fib, CHF, SVT, CT, history of cardiac stents placed in the past, who presents to emergency room with multiple complaints. Reports that 6 hours, he has been having chest pain. Reports that chest pain is located to his left breast, reports the chest pain feels like a "sensation to his chest." Patient reports that chest began while he was walking to the clinic this afternoon. Reports that nothing makes symptoms better or worse. Patient did feel short of breath and dizzy with his symptoms. Patient reports that he arrived at the [place] who told him to come to the ER for evaluation. EMS did give patient 1 SL nitro which resolved his symptoms. Patient also reports that he has been feeling dizzy since October after he fell and suffered a concussion. Patient reports that his dizzyness is at baseline. Patient was given ASA 162 mg by EMS [facility] Past Medical History Hx Anticoagulant Therapy: Yes Arthritis: No Asthma: No Atrial Fibrillation: Yes Autoimmune Disease: No Blood Disorders: No Anxiety: No Depression: No Heart Rhythm Problems: Yes Cancer: No Cardiac Catheterization: Yes Cardiovascular Problems: Yes High Cholesterol: Yes Chemotherapy: No Chest Pain: Yes Congestive Heart Failure: Yes COPD: Yes Cerebrovascular Accident: Yes Coronary Artery Disease: Yes Diabetes: No Diminished Hearing: No Endocrine: No Gastrointestinal Disorders: No GERD: No Glaucoma: No Genitourinary: No Headaches: No Hepatitis: No Hiatal Hernia: No Hypertension: No Immune Disorder: No Implanted Vascular Access Dvce: Yes Kidney Stones: No Musculoskeletal: No Neurologic: No Psychiatric: No Reproductive: No Respiratory: Yes Migraines: No Myocardial Infarction: Yes Radiation Therapy: No Renal Failure: No Seizures: No Sickle Cell Disease: No Sleep Apnea: No Thyroid Disease: No Ulcer: No Tetanus Vaccination: < 5 Years Influenza Vaccination: Yes PNEUMOCCOCAL Vaccine (Year): 2010 Past Surgical History Abdominal Surgery: No AICD: No Appendectomy: No Arteriovenous Shunt: No Body Medical Devices: CLIENT HAS A TENS UNIT Cardiac Surgery: Yes (CABG) Cholecystectomy: No Coronary Artery Bypass Graft: Yes (QUADRUPLE BYPASS 2006) Ear Surgery: No Endocrine Surgery: No Eye Surgery: No Genitourinary Surgery: No Gynecologic Surgery: No Hysterectomy: Yes Insulin Pump: No Joint Replacement: No Oral Surgery: No Pacemaker: Yes Thoracic Surgery: No Tonsillectomy: Yes Other Surgery: Yes (CABG-QUADRUPLE) Social History Alcohol Use: No Tobacco Use: No Substance Use: No Allergies-Medications (Allergen,Severity, Reaction): Coded Allergies: MRI PRECAUTION (Verified Adverse Reaction, Severe, NON COMPATIBLE PACEMAKER 11/01/16 LRS, 11/01/16) Reported Meds & Prescriptions Reported Meds & Active Scripts Active Reported Tramadol (Tramadol HCl) 50 Mg Tab 50 Mg PO DAILY PRN Prednisone 5 Mg Tab 5 Mg PO DAILY Vitamin D3 (Cholecalciferol) 1,000 Unit Tab 1,000 Units PO DAILY Qlyceafhrc-Mpabtoedremhr-Qsjcihax 50-325-40 Mg Tab 1 Tab PO HS PRN Do not exceed 6 tablets/day. Lasix (Furosemide) 20 Mg Tab 20 Mg PO DAILY Symbicort Inh (Budesonide/Formoterol Fumarate) 160-4.5 Mcg/Act Aero 2 Puff INH Q12HR Duoneb (Ipratropium-Albuterol Neb) 0.5-2.5 Mg/3 Ml Neb 1 Nebule INH QID PRN Aspirin EC (Aspirin) 81 Mg Tabdr 81 Mg PO HS Review of Systems General / Constitutional: No: Fever Eyes: No: Visual changes HENT: No: Headaches Cardiovascular: Positive: Chest Pain or Discomfort Respiratory: Positive: Shortness of Breath Gastrointestinal: No: Abdominal Pain Genitourinary: No: Dysuria Musculoskeletal: No: Pain Skin: No Rash Neurologic: Positive: Dizziness, No: Weakness Psychiatric: No: Depression Endocrine: No: Polydipsia Hematologic/Lymphatic: No: Easy Bruising Physical Exam Narrative GENERAL: mild distress SKIN: Focused skin assessment warm/dry. HEAD: Atraumatic. Normocephalic. EYES: Pupils equal and round. No scleral icterus. No injection or drainage. ENT: No nasal bleeding or discharge. Mucous membranes pink and moist. NECK: Trachea midline. No JVD. CARDIOVASCULAR: Regular rate and rhythm. No murmur appreciated. RESPIRATORY: No accessory muscle use. Clear to auscultation. Breath sounds equal bilaterally. GASTROINTESTINAL: Abdomen soft, non-tender, nondistended. Hepatic and splenic margins not palpable. MUSCULOSKELETAL: No obvious deformities. No clubbing. No cyanosis. No edema. NEUROLOGICAL: Awake and alert. No obvious cranial nerve deficits. Motor grossly within normal limits. Normal speech. CN 2-12 grossly intact with no neuro deficits PSYCHIATRIC: Appropriate mood and affect; insight and judgment normal. Data Data Last Documented VS Vital Signs Date Time Temp Pulse Resp B/P Pulse Ox O2 Delivery O2 Flow Rate FiO2 01/03/17 15:22 69 15 96 Room Air 01/03/17:17 97.6 123/75 Orders Electrocardiogram (01/03/17 15:31) B-Type Natriuretic Peptide (01/03/17 15:31) Ckmb (Isoenzyme) Profile (01/03/17 15:31) Complete Blood Count With Diff (01/03/17 15:31) Comprehensive Metabolic Panel (01/03/17 15:31) Magnesium (Mg) (01/03/17 15:31) Prothrombin Time / Inr (Pt) (01/03/17 15:31) Act Partial Throm Time (Ptt) (01/03/17 15:31) Troponin I (01/03/17 15:31) Lipase (01/03/17 15:31) Chest, Single Ap (01/03/17 15:31) Ecg Monitoring (01/03/17 15:31) Iv Access Insert/Monitor (01/03/17 15:31) Oximetry (01/03/17 15:31) Sodium Chloride 0.9% Flush (Ns Flush) (01/03/17 15:45) Sodium Chlorid 0.9% 500 Ml Inj (Ns 500 M (01/03/17 15:45) Ct Brain W/O Iv Contrast(Rout) (01/03/17 15:31) Acetaminophen (Tylenol) (01/03/17 16:30) CKMB (01/03/17 15:30) CKMB% (01/03/17 15:30) Labs Laboratory Tests Test 01/03/17 15:30 White Blood Count 9.0 TH/MM3 Red Blood Count 4.76 MIL/MM3 Hemoglobin 13.6 GM/DL Hematocrit 41.6 % Mean Corpuscular Volume 87.3 FL Mean Corpuscular Hemoglobin 28.6 PG Mean Corpuscular Hemoglobin 32.8 % Concent Red Cell Distribution Width 14.8 % Platelet Count 209 TH/MM3 Mean Platelet Volume 9.1 FL Neutrophils (%) (Auto) 77.7 % Lymphocytes (%) (Auto) 13.5 % Monocytes (%) (Auto) 7.5 % Eosinophils (%) (Auto) 0.6 % Basophils (%) (Auto) 0.7 % Neutrophils # (Auto) 7.0 TH/MM3 Lymphocytes # (Auto) 1.2 TH/MM3 Monocytes # (Auto) 0.7 TH/MM3 Eosinophils # (Auto) 0.1 TH/MM3 Basophils # (Auto) 0.1 TH/MM3 CBC Comment DIFF FINAL Differential Comment Prothrombin Time 12.0 SEC Prothromb Time International 1.1 RATIO Ratio Activated Partial 30.3 SEC Thromboplast Time Sodium Level 140 MEQ/L Potassium Level 4.2 MEQ/L Chloride Level 105 MEQ/L Carbon Dioxide Level 27.2 MEQ/L Anion Gap 8 MEQ/L Blood Urea Nitrogen 14 MG/DL Creatinine 1.09 MG/DL Estimat Glomerular Filtration 67 ML/MIN Rate Random Glucose 91 MG/DL Calcium Level 9.0 MG/DL Magnesium Level 2.3 MG/DL Total Bilirubin 0.8 MG/DL Aspartate Amino Transf 23 U/L (AST/SGOT) Alanine Aminotransferase 14 U/L (ALT/SGPT) Alkaline Phosphatase 65 U/L Total Creatine Kinase 135 U/L Creatine Kinase MB 2.6 NG/ML Troponin I 0.10 NG/ML B-Type Natriuretic Peptide 402 PG/ML Total Protein 6.5 GM/DL Albumin 3.6 GM/DL Lipase 137 U/L [facility] Medical Decision Making Medical Screen Exam Complete: Yes Emergency Medical Condition: Yes Interpretation(s) EKG at 1514: atrial paced at 69bpm, qt/qtc: 449/469 Vital Signs Date Time Temp Pulse Resp B/P Pulse Ox O2 Delivery O2 Flow Rate FiO2 01/03/17 15:22 69 15 96 Room Air 01/03/17 15:17 97.6 73 15 123/75 96 Laboratory Tests Test 01/03/17 15:30 White Blood Count 9.0 TH/MM3 (4.0-11.0) Red Blood Count 4.76 MIL/MM3 (4.50-5.90) Hemoglobin 13.6 GM/DL (13.0-17.0) Hematocrit 41.6 % (39.0-51.0) Mean Corpuscular Volume 87.3 FL (80.0-100.0) Mean Corpuscular Hemoglobin 28.6 PG (27.0-34.0) Mean Corpuscular Hemoglobin 32.8 % Concent (32.0-36.0) Red Cell Distribution Width 14.8 % (11.6-17.2) Platelet Count 209 TH/MM3 (150-450) Mean Platelet Volume 9.1 FL (7.0-11.0) Neutrophils (%) (Auto) 77.7 % (16.0-70.0) Lymphocytes (%) (Auto) 13.5 % (9.0-44.0) Monocytes (%) (Auto) 7.5 % (0.0-8.0) Eosinophils (%) (Auto) 0.6 % (0.0-4.0) Basophils (%) (Auto) 0.7 % (0.0-2.0) Neutrophils # (Auto) 7.0 TH/MM3 (1.8-7.7) Lymphocytes # (Auto) 1.2 TH/MM3 (1.0-4.8) Monocytes # (Auto) 0.7 TH/MM3 (0-0.9) Eosinophils # (Auto) 0.1 TH/MM3 (0-0.4) Basophils # (Auto) 0.1 TH/MM3 (0-0.2) CBC Comment DIFF FINAL Differential Comment Prothrombin Time 12.0 SEC (9.8-11.6) Prothromb Time International 1.1 RATIO Ratio Activated Partial 30.3 SEC Thromboplast Time (24.3-30.1) Sodium Level 140 MEQ/L (136-145) Potassium Level 4.2 MEQ/L (3.5-5.1) Chloride Level 105 MEQ/L (98-107) Carbon Dioxide Level 27.2 MEQ/L (21.0-32.0) Anion Gap 8 MEQ/L (5-15) Blood Urea Nitrogen 14 MG/DL (7-18) Creatinine 1.09 MG/DL (0.60-1.30) Estimat Glomerular Filtration 67 ML/MIN (>89) Rate Random Glucose 91 MG/DL (74-106) Calcium Level 9.0 MG/DL (8.5-10.1) Magnesium Level 2.3 MG/DL (1.5-2.5) Total Bilirubin 0.8 MG/DL (0.2-1.0) Aspartate Amino Transf 23 U/L (15-37) (AST/SGOT) Alanine Aminotransferase 14 U/L (12-78) (ALT/SGPT) Alkaline Phosphatase 65 U/L (45-117) Total Creatine Kinase 135 U/L (39-308) Creatine Kinase MB 2.6 NG/ML (0.5-3.6) Troponin I 0.10 NG/ML (0.02-0.05) B-Type Natriuretic Peptide 402 PG/ML (0-100) Total Protein 6.5 GM/DL (6.4-8.2) Albumin 3.6 GM/DL (3.4-5.0) Lipase 137 U/L (73-393) Last Impressions Head CT 01/03/17 1531 Signed Impressions: Service Date/Time: Tuesday, January 03, 2017 15:49 - CONCLUSION: 1. Evolving left occipital infarct. 2. No acute intracranial abnormality. Vasu Gli MD Chest X-Ray 01/03/17 1531 Signed Impressions: Service Date/Time: Tuesday, January 03, 2017 15:46 - CONCLUSION: The lungs are clear. Harley Perry MD Differential Diagnosis ACS, arrhythmia, electrolyte abnormality Narrative Course 66-year-old male who initially presents to emergency room with complaints of chest pain and dizziness. Patient was given 1 little nitroglycerin by EMS and he had complete resolution of symptoms. Patient was placed on a procedure manager upon arrival to emergency room, cardiac enzymes as well as x-ray the chest and CT of the head ordered. Patient with complete resolution of chest pain at this time. Patient does have a positive troponin of 0.10. He is currently chest pain-free at this time. Plan to admit him to the hospital for further workup of his chest pain. Patient did see Dr. Jude Germain during previous admission for chest pain with elevated troponin Patient reports that he has been dizzy since October, CT of the head concerning for evolution of a previously noted left occipital mid to low convexity infract. Patient with most likely evolving left occipital infarct Case reviewed with Dr. Babb who accepts pt to service Diagnosis Primary Impression: NSTEMI (non-ST elevated myocardial infarction) Admitting Information Admitting Physician Requests: Admit Odalys Lopez DO Jan 03, 2017 17:25
--- NOTE | 2017-01-03 17:52 | HHI.HP ---
[facility] Service [facility] Primary Care Physician [facility] Admission Diagnosis Diagnoses: Chief Complaint: headache Travel History International Travel<30 Days: No Contact w/Intl Traveler <30 Da: No Traveled to Known Affected Are: No History of Present Illness 66 y/o male with a history or CVA, CAD, AFIB, HLD, COPD and hypertension presented to the ED with complaints of headache. Patient is somewhat of a poor historian and is confused about what Meds he takes at home. He does live alone. Patient complains of pain in his head, located globally, that is sharp at times and varies in intensity, and it is associated with dizziness. He denies any aggravating symptoms, and did not try any medications prior to coming to the hospital. He states this has all started when he had a concussion in October and has been ongoing. Denies any chest pain, sob, fever or chills. Although ER physician admitted for chest pain, patient now denies any episode of chest pain or angina equivalent. Review of Systems Constitutional: COMPLAINS OF: Dizziness, DENIES: Fever, Chills Respiratory: DENIES: Cough, Shortness of breath Cardiovascular: DENIES: Lower Extremity Edema Gastrointestinal: DENIES: Constipation, Diarrhea, Nausea, Vomiting Musculoskeletal: DENIES: Back pain, Neck pain Integumentary: DENIES: Rash Neurologic: DENIES: Localized weakness Past Family Social History Past Medical History CVA CAD COPD hypertension Past Surgical History CABG Pacemaker Reported Medications Reported Meds & Active Scripts Active Reported Tramadol (Tramadol HCl) 50 Mg Tab 50 Mg PO DAILY PRN Prednisone 5 Mg Tab 5 Mg PO DAILY Vitamin D3 (Cholecalciferol) 1,000 Unit Tab 1,000 Units PO DAILY Ebeeptluob-Nlcdciudnlula-Xcivwthg 50-325-40 Mg Tab 1 Tab PO HS PRN Do not exceed 6 tablets/day. Lasix (Furosemide) 20 Mg Tab 20 Mg PO DAILY Symbicort Inh (Budesonide/Formoterol Fumarate) 160-4.5 Mcg/Act Aero 2 Puff INH Q12HR Duoneb (Ipratropium-Albuterol Neb) 0.5-2.5 Mg/3 Ml Neb 1 Nebule INH QID PRN Aspirin EC (Aspirin) 81 Mg Tabdr 81 Mg PO HS Allergies: Coded Allergies: MRI PRECAUTION (Verified Adverse Reaction, Severe, NON COMPATIBLE PACEMAKER 11/01/16 LRS, 11/01/16) Active Ordered Medications Current Medications Medications (Trade) Dose Ordered Sig/Leticia Route Start Time Stop Time Status Last Admin (NS Flush) 2 ml UNSCH PRN IVF 01/03/17 15:45 Family History Mom: DM Dad: CVA Social History Tobacco use: Quit many years ago Alcohol use: Denies Illicit drug use: Denies Physical Exam Vital Signs Vital Signs Date Time Temp Pulse Resp B/P Pulse Ox O2 Delivery O2 Flow Rate FiO2 01/03/17 15:22 69 15 96 Room Air 01/03/17 15:17 97.6 73 15 123/75 96 Physical Exam GENERAL: This is a well-nourished, well-developed patient, in no apparent distress. SKIN: No rashes, ecchymoses or lesions. Cool and dry. HEAD: Atraumatic. Normocephalic. No temporal or scalp tenderness. EYES: Pupils equal round and reactive. Extraocular motions intact. No scleral icterus. No injection or drainage. ENT: Nose without bleeding, purulent drainage or septal hematoma. Airway patent. NECK: Trachea midline. No JVD or lymphadenopathy. Supple, nontender, no meningeal signs. CARDIOVASCULAR: Regular rate and rhythm without murmurs, gallops, or rubs. RESPIRATORY: Clear to auscultation. Breath sounds equal bilaterally. No wheezes , rales, or rhonchi. GASTROINTESTINAL: Abdomen soft, non-tender, nondistended. No hepato-splenomegaly , or palpable masses. No guarding. MUSCULOSKELETAL: Extremities without clubbing, cyanosis, or edema. No joint tenderness, effusion, or edema noted. No calf tenderness. NEUROLOGICAL: Awake and alert. Cranial nerves II through XII intact. Motor and sensory grossly within normal limits. Five out of 5 muscle strength in all muscle groups. Normal speech. Laboratory Laboratory Tests Test 01/03/17 15:30 White Blood Count 9.0 Red Blood Count 4.76 Hemoglobin 13.6 Hematocrit 41.6 Mean Corpuscular Volume 87.3 Mean Corpuscular Hemoglobin 28.6 Mean Corpuscular Hemoglobin 32.8 Concent Red Cell Distribution Width 14.8 Platelet Count 209 Mean Platelet Volume 9.1 Neutrophils (%) (Auto) 77.7 Lymphocytes (%) (Auto) 13.5 Monocytes (%) (Auto) 7.5 Eosinophils (%) (Auto) 0.6 Basophils (%) (Auto) 0.7 Neutrophils # (Auto) 7.0 Lymphocytes # (Auto) 1.2 Monocytes # (Auto) 0.7 Eosinophils # (Auto) 0.1 Basophils # (Auto) 0.1 CBC Comment DIFF FINAL Differential Comment Prothrombin Time 12.0 Prothromb Time International 1.1 Ratio Activated Partial 30.3 Thromboplast Time Sodium Level 140 Potassium Level 4.2 Chloride Level 105 Carbon Dioxide Level 27.2 Anion Gap 8 Blood Urea Nitrogen 14 Creatinine 1.09 Estimat Glomerular Filtration 67 Rate Random Glucose 91 Calcium Level 9.0 Magnesium Level 2.3 Total Bilirubin 0.8 Aspartate Amino Transf 23 (AST/SGOT) Alanine Aminotransferase 14 (ALT/SGPT) Alkaline Phosphatase 65 Total Creatine Kinase 135 Creatine Kinase MB 2.6 Troponin I 0.10 B-Type Natriuretic Peptide 402 Total Protein 6.5 Albumin 3.6 Lipase 137 Result Diagram: 01/03/17 1530 01/03/17 1530 Imaging Last Impressions Head CT 01/03/17 1531 Signed Impressions: Service Date/Time: Tuesday, January 03, 2017 15:49 - CONCLUSION: 1. Evolving left occipital infarct. 2. No acute intracranial abnormality. Vasu Gil MD Chest X-Ray 01/03/17 1531 Signed Impressions: Service Date/Time: Tuesday, January 03, 2017 15:46 - CONCLUSION: The lungs are clear. Harley Perry MD Assessment and Plan Problem List: (1) Headache ICD Code: R51 Status: Acute (2) Elevated troponin I level ICD Code: R74.8 Status: Acute Assessment and Plan Headache with associated dizziness, likely OLD CVA Images: Head CT shows left evolving occipital infarct. No changes -Tylenol for pain -Fioricet prn -Fall precautions -PT eval -Orthostatics Elevated troponin, Troponin .10, admitted on 11/01, baseline troponin .10 EKG shows a paced rhythm -Serial troponin and ekgs -Will consult Cardiology if needed HTN, chronic currently stable -Patient is unsure of medications, will reorder meds when med rec is verified with the [place] DVT prophylaxis: SCDs Patient will be changed to obs admission, as symptoms do not require impatient Discussed Condition With Patient and RN Collaborating MD Comments Patient is a poor historian. Patient c/p dizziness and JUAREZ. He stated that dizziness has been occuring since October 2016 when he was dx with a concussion. He stated that he has a JUAREZ but could not localized the JUAREZ for me. Did not try any medication for his JUAREZ but stated ASA worked in the past. Denied any N/V, visual changes or focal neurological deficits. He denied any CP, SOB, or palpitations. Gen NAD CV RRR. no r/m/g Abd soft NDNT resp CTA B/L Neuro AAO X 3. CN 2-12 intact. motor and sensory grossly in tact. A/P JUAREZ elevated troponin JUAREZ sounds more like a tension JUAREZ. CT scan shows evolving stroke. no reg flags noted. Patient did not try any medication. will try Fioricet. elevated troponin are at his prior baseline. patient is asymptomatic and never c /o CP. will trend troponin and monitor on telemetry. consult Candy Spreader Helper if troponin trends up. resume home medication. Attestation The exam, history, and the medical decision-making described in the above note were completed with the assistance of the mid-level provider. I reviewed and agree with the findings presented. I attest that I had a [id number] encounter with the patient on the same day, and personally performed and documented my assessment and findings in the medical record. Physician Certification 2 Midnight Certification Type: Admission for Inpatient Services Order for Inpatient Services The services are ordered in accordance with Medicare regulations or non- Medicare payer requirements, as applicable. In the case of services not specified as inpatient-only, they are appropriately provided as inpatient services in accordance with the 2-midnight benchmark. Estimated LOS (days): 1 days is the estimated time the patient will need to remain in the hospital, assuming treatment plan goals are met and no additional complications. Post-Hospital Plan: Home (Will be changed to obs) Yana Meza Jan 03, 2017 17:52 Deann Durán MD Jan 03, 2017 20:21
[2017-01-03] MEDS ORDERED: ONDANSETRON HCL 4 MG/2 ML VIAL IVP PRN (18:00)
[2017-01-03] MEDS ORDERED: SENNOSIDES 8.6 MG TAB PO PRN (18:00)
[2017-01-03] MEDS ORDERED: NALOXONE HCL 0.4 MG/ML AMP IV PRN (18:00)
[2017-01-03] MEDS ORDERED: MORPHINE SULFATE 4 MG/ML INJ IV PUSH PRN (18:00)
[2017-01-03] MEDS ORDERED: MAGNESIUM HYDROXIDE SUSP 30 ML CUP PO PRN (18:00)
[2017-01-03] MEDS ORDERED: NITROGLYCERIN 2% OINT 1 GM PACKET TOPICAL PRN (18:00)
[2017-01-03] MEDS ORDERED: BISACODYL 10 MG SUPP RECTAL PRN (18:00)
[2017-01-03] MEDS ORDERED: SODIUM CHLORIDE 0.9% FLUSH 10 ML FLUSH IV FLUSH PRN (18:00)
[2017-01-03] MEDS ORDERED: LACTULOSE SYRUP 20 GM/30 ML CUP PO PRN (18:00)
[2017-01-03] MEDS: SODIUM CHLORIDE 0.9% FLUSH 10 ML FLUSH IV FLUSH SCH (20:40)
[2017-01-03] MEDS: DOCUSATE SODIUM 50 MG/SENNA 8.6 MG TAB PO SCH (20:40)
[2017-01-03] MEDS: BUDESONIDE-FORMOTEROL 160/4.5 MCG INHALER INH SCH (20:40)
[2017-01-03] MEDS: ASPIRIN EC 81 MG TABEC PO SCH (20:40)
[2017-01-03] MEDS: ACETAMIN 325 MG/BUTALBITAL 50 MG/CAFFEINE 40 MG TAB PO PRN (22:41)
[2017-01-04] VITALS (23 sets, daily range): BP systolic 93–111; BP diastolic 51–75; PULSE 68–93; RESP 16–18; TEMP 97.4–98.2; O2SAT 92–97
[2017-01-04] MEDS: SODIUM CHLORIDE 0.9% FLUSH 10 ML FLUSH IV FLUSH SCH ×2 (09:00→21:39)
[2017-01-04] MEDS ORDERED: ASPIRIN 325 MG TAB PO SCH (09:00)
[2017-01-04] MEDS: FUROSEMIDE 20 MG TAB PO SCH (09:21)
[2017-01-04] MEDS: CHOLECALCIFEROL (VIT D3) 1000 UNIT TAB PO SCH (09:21)
[2017-01-04] MEDS: predniSONE 5 MG TAB PO SCH (09:21)
[2017-01-04] MEDS: BUDESONIDE-FORMOTEROL 160/4.5 MCG INHALER INH SCH ×2 (09:21→21:00)
[2017-01-04] MEDS: DOCUSATE SODIUM 50 MG/SENNA 8.6 MG TAB PO SCH ×2 (09:21→21:00)
[2017-01-04] MEDS: ACETAMIN 325 MG/BUTALBITAL 50 MG/CAFFEINE 40 MG TAB PO PRN ×2 (09:30→19:16)
--- NOTE | 2017-01-04 09:41 | HHI.PR ---
Subjective Remarks Pt states that the fioricet helped last night but now he is starting to have another headache, mainly located in the frontal area, no photophobia or changes in vision. no nausea or vomiting. denies any chest pains. Objective Vitals Vital Signs Date Time Temp Pulse Resp B/P Pulse Ox O2 Delivery O2 Flow Rate FiO2 01/04/17 06:00 71 01/04/17 05:00 69 01/04/17 04:00 70 01/04/17 03:00 97.5 72 18 111/75 97 01/04/17 03:00 69 01/04/17 02:00 69 01/04/17 01:00 69 01/04/17 00:00 69 01/03/17 23:00 74 01/03/17 23:00 97.6 74 18 115/71 93 01/03/17 22:00 88 01/03/17 21:00 76 01/03/17 20:00 86 01/03/17 19:32 97.5 74 18 124/81 95 01/03/17 19:00 76 01/03/17 18:46 68 15 128/83 98 Nasal Cannula 2 01/03/17 18:46 68 15 128/74 96 Room Air 01/03/17 15:22 69 15 96 Room Air 01/03/17 15:17 97.6 73 15 123/75 96 I/O 01/03/17 01/03/17 01/03/17 01/04/17 01/04/17 01/04/17 07:00 15:00 23:00 07:00 15:00 23:00 Intake Total 240 ml Output Total 625 ml Balance -385 ml Intake Oral 240 ml Output Urine Total 625 ml Result Diagram: 01/03/17 1530 01/03/17 1530 Imaging Last Impressions Head CT 01/03/17 1531 Signed Impressions: Service Date/Time: Tuesday, January 03, 2017 15:49 - CONCLUSION: 1. Evolving left occipital infarct. 2. No acute intracranial abnormality. Vasu Gil MD Chest X-Ray 01/03/17 1531 Signed Impressions: Service Date/Time: Tuesday, January 03, 2017 15:46 - CONCLUSION: The lungs are clear. Harley Perry MD Objective Remarks GENERAL: This is a well-nourished, well-developed patient, in no apparent distress. CARDIOVASCULAR: Regular rate and rhythm without murmurs RESPIRATORY: Clear to auscultation. Breath sounds equal bilaterally. No wheezes GASTROINTESTINAL: Abdomen soft, non-tender, nondistended. No guarding. MUSCULOSKELETAL: Extremities without edema. NEUROLOGICAL: Awake and alert. Cranial nerves II through XII grossly intact. Normal speech A/P Problem List: (1) Headache ICD Code: R51 Status: Acute (2) Elevated troponin I level ICD Code: R74.8 Status: Acute Assessment and Plan Headache with associated dizziness, likely OLD CVA Images: Head CT shows left evolving occipital infarct. No changes -Tylenol for pain -Fioricet prn which seems to help patient -Fall precautions -PT eval -Orthostatics Elevated troponin, Troponin .10, admitted on 11/01, baseline troponin .10 EKG shows a paced rhythm -Serial troponin ordered -Will consult Cardiology if needed however at this time, pt is not having any chest pains, if trop elevated will consult. HTN, chronic currently stable - BPs controlled. on lasix COPD: home meds have been resumed. DVT prophylaxis: SCDs Discharge Planning if troponins stable and pt remains chest pain free and headaches controlled, will discharge later today Connie Babb MD Jan 04, 2017 09:41
--- NOTE | 2017-01-04 19:42 | EKG ---
Date Performed: 01/03/2017 Time Performed: 15:14:26 PTAGE: 66 years EKG: ELECTRONIC ATRIAL PACEMAKER ELECTRONIC VENTRICULAR PACEMAKER ABNORMAL RHYTHM ECG PREVIOUS TRACING : 11/02/2016 07.25 Compared to the previous tracing, previously sinus with V-p acing DOCTOR: Pradip Cheung Interpretating Date/Time 01/04/2017 19:41:10
[2017-01-04] MEDS: ASPIRIN EC 81 MG TABEC PO SCH (21:40)
[2017-01-05] VITALS (25 sets, daily range): BP systolic 93–119; BP diastolic 63–78; PULSE 66–82; RESP 16–18; TEMP 97.4–98.1; O2SAT 91–94
[2017-01-05] MEDS: ACETAMIN 325 MG/BUTALBITAL 50 MG/CAFFEINE 40 MG TAB PO PRN ×3 (04:46→20:51)
[2017-01-05] MEDS: predniSONE 5 MG TAB PO SCH (08:52)
[2017-01-05] MEDS: SODIUM CHLORIDE 0.9% FLUSH 10 ML FLUSH IV FLUSH SCH ×2 (08:52→20:50)
[2017-01-05] MEDS: DOCUSATE SODIUM 50 MG/SENNA 8.6 MG TAB PO SCH ×2 (08:52→20:51)
[2017-01-05] MEDS: FUROSEMIDE 20 MG TAB PO SCH (08:52)
[2017-01-05] MEDS: BUDESONIDE-FORMOTEROL 160/4.5 MCG INHALER INH SCH ×2 (08:52→20:50)
[2017-01-05] MEDS: CHOLECALCIFEROL (VIT D3) 1000 UNIT TAB PO SCH (08:52)
--- NOTE | 2017-01-05 12:35 | HHI.PR ---
Subjective Remarks Pt states he feels better. headache is much improved w fioricet. pt hasn't had any chest pain and last time was night prior to admission. no palpitations, nausea or vomiting Objective Vitals Vital Signs Date Time Temp Pulse Resp B/P Pulse Ox O2 Delivery O2 Flow Rate FiO2 01/05/17 12:00 76 01/05/17 12:00 97.8 76 16 119/69 92 01/05/17 11:00 72 01/05/17 10:00 78 01/05/17 09:00 70 01/05/17 08:00 69 01/05/17 08:00 97.9 70 16 108/78 92 01/05/17 07:00 68 01/05/17 06:00 69 01/05/17 05:00 80 01/05/17 04:00 80 01/05/17 03:00 97.4 75 18 99/65 94 01/05/17 03:00 69 01/05/17 02:00 68 01/05/17 01:00 66 01/05/17 00:00 66 01/04/17 23:00 70 01/04/17 23:00 97.4 71 18 102/69 94 01/04/17 22:00 70 01/04/17 21:00 70 01/04/17 20:03 97.8 77 18 93/51 93 01/04/17 20:00 80 01/04/17 19:00 78 01/04/17 16:00 72 01/04/17 16:00 98.1 74 16 98/70 92 01/04/17 15:00 74 01/04/17 14:00 82 01/04/17 13:00 88 I/O 01/04/17 01/04/17 01/04/17 01/05/17 01/05/17 01/05/17 07:00 15:00 23:00 07:00 15:00 23:00 Intake Total 240 ml 810 ml 480 ml Output Total 625 ml 650 ml 300 ml Balance -385 ml 160 ml 180 ml Intake Oral 240 ml 810 ml 480 ml Output Urine Total 625 ml 650 ml 300 ml # Bowel Movements 1 Result Diagram: 01/03/17 1530 01/03/17 1530 Imaging Last Impressions Head CT 01/03/17 1531 Signed Impressions: Service Date/Time: Tuesday, January 03, 2017 15:49 - CONCLUSION: 1. Evolving left occipital infarct. 2. No acute intracranial abnormality. Vasu Gil MD Chest X-Ray 01/03/17 1531 Signed Impressions: Service Date/Time: Tuesday, January 03, 2017 15:46 - CONCLUSION: The lungs are clear. Harley Perry MD Objective Remarks GENERAL: pt in no apparent distress. CARDIOVASCULAR: Regular rate and rhythm without murmurs RESPIRATORY: Clear to auscultation. Breath sounds equal bilaterally. No wheezes GASTROINTESTINAL: Abdomen soft, non-tender, nondistended. No guarding. MUSCULOSKELETAL: Extremities without edema. NEUROLOGICAL: Awake and alert. Normal speech A/P Problem List: (1) Headache ICD Code: R51 Status: Acute (2) Elevated troponin I level ICD Code: R74.8 Status: Acute Assessment and Plan Headache with associated dizziness, likely OLD CVA Images: Head CT shows left evolving occipital infarct. No changes -Tylenol for pain -Fioricet prn which seems to help patient -Fall precautions -PT recommends home health PT Elevated troponin, Troponin .10, admitted on 11/01, baseline troponin .10 however trops did go up to 0.38 then down to 0.24 EKG shows a paced rhythm -will consult cards, pt is known to Dr. Mart. Appreciate recs. HTN, chronic currently stable - BPs controlled. on lasix COPD: home meds have been resumed. DVT prophylaxis: SCDs Discharge Planning cards consult in place. awaiting recs. JUAREZ much improved on ezoricConnie Berumen MD Jan 05, 2017 12:35
[2017-01-05] MEDS: ASPIRIN EC 81 MG TABEC PO SCH (20:50)
--- NOTE | 2017-01-05 22:08 | MB ---
cc: ANABEL FERRER M.D. DATE OF CONSULTATION: 01/05/2017 REASON FOR THE CARDIOLOGY CONSULTATION Elevated troponin. HISTORY OF PRESENT ILLNESS This is a 66-year-old white male, yesterday during packing of his stuff at the apartment he got a headache and a little bit of substernal chest pain. He was evicted. He was seen at the [facility] and was sent over here for evaluation. By the time the patient was admitted the pain disappeared. His headache also disappeared. CT of the had showed evolving left occipital infarct. EKG showed AV sequential pacing. His cardiac history dates back to six years ago, at that time he had open heart surgery, he could not remember how many bypass grafts he might have. Three years ago the patient had cardiac catheterization before ICD implant. Cardiac catheterization showed patent graft to the ramus and RCA, ejection fraction was below 25%. He is being followed by Dr. Mart for biventricular pacemaker. He is known to have atrial fibrillation and flutter. He denies any history of hypertension or hyperlipidemia. He was a heavy smoker and quit six years ago. He is a nondrinker. At best, at the time he could walk at least a mile with no difficulty. After admission he was found to have elevated troponin. Reviewed his troponin, it has been elevated on and off. He had two nuclear stress tests showing mainly large fixed defect with minimal reversibility. PAST MEDICAL HISTORY 1. Chronic systolic left ventricular dysfunction. 2. CABG. 3. Frequent PVC. 4. Biventricular pacemaker. 5. Ischemic dilated cardiomyopathy. 6. COPD. 7. Hypertension, hyperlipidemia and borderline diabetes. ALLERGIES NONE. FAMILY HISTORY Noncontributory. SOCIAL HISTORY Ex-smoker. Nondrinker. Lives alone. MEDICATIONS At the moment - 1. Lasix 20 mg daily. 2. Prednisone 5 mg daily. 3. Baby Aspirin a day. PHYSICAL EXAMINATION VITAL SIGNS: On physical examination on day of consultation showed blood pressure 104/77, pulse is 66 per minute, afebrile. HEAD AND NECK EXAM: Showed normal oral exam. Neck was supple. CHEST EXAM: Showed decreased air entry with no bronchospasm. CARDIOVASCULAR EXAMINATION: Showed normal neck veins. S1 and S2 decreased. No gross murmur. ABDOMINAL EXAMINATION: Revealed liver and spleen are palpable. Bowel sounds normal. DRAFTING INSTRUCTOR EXAMINATION: Showed the patient is oriented to time, place and person. ASSESSMENT 1. Brief periods of chest pain under emotional upset yesterday. 2. Chronically elevated troponin. 3. Evolving stroke. 4. Ischemic dilated cardiomyopathy with biventricular pacemaker. 5. COPD. 6. Hypertension, hyperlipidemia and borderline diabetic. 7. Paroxysmal atrial fibrillation. PLAN At this point, the elevated troponin may have been due to CVA and the baseline level has always been elevated. I would be reluctant to proceed with cardiac catheterization which may involve anticoagulation. The patient may consider anticoagulation especially in the presence of paroxysmal atrial fibrillation and poor ejection fraction. His CHADS-VASc score is at least 6. The situation has to get the blessing from Neurology before starting anticoagulation. MD NAFISA Rosenbaum/HANK /9:18 PM /9:35 PM
[2017-01-06] VITALS (13 sets, daily range): BP systolic 100–170; BP diastolic 58–78; PULSE 68–86; RESP 16–18; TEMP 97.5–98.6; O2SAT 92–98
[2017-01-06] MEDS: SODIUM CHLORIDE 0.9% FLUSH 10 ML FLUSH IV FLUSH SCH ×2 (09:00→19:58)
[2017-01-06] MEDS: DOCUSATE SODIUM 50 MG/SENNA 8.6 MG TAB PO SCH ×3 (09:32→20:01)
[2017-01-06] MEDS: FUROSEMIDE 20 MG TAB PO SCH (09:32)
[2017-01-06] MEDS: CHOLECALCIFEROL (VIT D3) 1000 UNIT TAB PO SCH (09:32)
[2017-01-06] MEDS: predniSONE 5 MG TAB PO SCH (09:32)
[2017-01-06] MEDS: BUDESONIDE-FORMOTEROL 160/4.5 MCG INHALER INH SCH ×2 (09:32→19:58)
[2017-01-06] MEDS: ACETAMIN 325 MG/BUTALBITAL 50 MG/CAFFEINE 40 MG TAB PO PRN ×2 (09:35→20:00)
--- NOTE | 2017-01-06 10:44 | HHI.PR ---
Subjective Remarks Pt tells me that headache is improved w fioricet states that 4 days prior to admission he was evicted from the place he was staying at and hadn't taken his meds since. pt states that he was on coumadin but hasn't taken any. hasn't f/u w neuro as instructed since last admission. denies any CP/SOB/N/V Tells me that BPs were low overnight. Objective Vitals Vital Signs Date Time Temp Pulse Resp B/P Pulse Ox O2 Delivery O2 Flow Rate FiO2 01/06/17 08:52 97.8 73 18 100/71 92 01/06/17 08:52 73 01/06/17 04:37 98.6 84 16 170/58 93 01/06/17 04:00 76 01/06/17 03:00 70 01/06/17 02:00 68 01/06/17 01:00 70 01/06/17 00:00 68 01/05/17 23:51 98.1 70 16 99/65 93 01/05/17 23:00 74 01/05/17 22:00 76 01/05/17 21:00 78 01/05/17 20:00 82 01/05/17 20:00 97.7 79 18 93/63 91 01/05/17 19:00 76 01/05/17 18:00 70 01/05/17 17:00 72 01/05/17 16:00 66 01/05/17 16:00 97.9 66 16 104/77 93 01/05/17 15:00 76 01/05/17 14:00 78 01/05/17 13:00 72 01/05/17 13:00 16 01/05/17 12:00 76 01/05/17 12:00 97.8 76 16 119/69 92 01/05/17 11:00 72 I/O 01/05/17 01/05/17 01/05/17 01/06/17 01/06/17 01/06/17 07:00 15:00 23:00 07:00 15:00 23:00 Intake Total 480 ml 720 ml 480 ml Output Total 300 ml 420 ml Balance 180 ml 720 ml 60 ml Intake Oral 480 ml 720 ml 480 ml Output Urine Total 300 ml 420 ml Stool Total 0 ml # Voids 4 # Bowel Movements 1 Result Diagram: 01/03/17 1530 01/03/17 1530 Imaging Last Impressions Head CT 01/03/17 1531 Signed Impressions: Service Date/Time: Tuesday, January 03, 2017 15:49 - CONCLUSION: 1. Evolving left occipital infarct. 2. No acute intracranial abnormality. Vasu Gil MD Chest X-Ray 01/03/17 1531 Signed Impressions: Service Date/Time: Tuesday, January 03, 2017 15:46 - CONCLUSION: The lungs are clear. Harley Perry MD Objective Remarks GENERAL: pt in no apparent distress. CARDIOVASCULAR: Regular rate and rhythm without murmurs RESPIRATORY: Clear to auscultation. Breath sounds equal bilaterally. No wheezes GASTROINTESTINAL: Abdomen soft, non-tender, nondistended. No guarding. MUSCULOSKELETAL: Extremities without edema. NEUROLOGICAL: Awake and alert. Normal speech A/P Problem List: (1) Headache ICD Code: R51 Status: Acute (2) Elevated troponin I level ICD Code: R74.8 Status: Acute Assessment and Plan Headache with associated dizziness, likely OLD CVA Images: Head CT shows left evolving occipital infarct. No changes -Tylenol for pain -Fioricet prn helping w headaches. will need script upon discharge. -Fall precautions -PT recommends home health PT however, discussed w CM regarding placement and they are working on it as pt doesn't have a place to stay Elevated troponin, Troponin .10, admitted on 11/01, baseline troponin .10 however trops did go up to 0.38 then down to 0.24 EKG shows a paced rhythm -Dr. Germain evaluated the patient and recommends pt being on anticoagulation, no intervention at this time. I have restarted pt on coumadin 2.5mg po daily. Pt was discharged on it in october of this year and was cleared by both cards and neuro at the time. pt admits that he has been taking it but was evicted 4 days ago and hasn't been taking any of his meds. Discussed w CM and they will try to see if he could go to SNF for short period of time and this would help to monitor INRs daily until he is therapeutic. HTN, chronic currently stable - BPs low normal and controlled. on lasix COPD: on home meds DVT prophylaxis: coumadin, will need daily INRs as an outpatient. Discharge Planning anticipate d/c later today CM assisting w d/c planning. Connie Babb MD Jan 06, 2017 10:44
[2017-01-06] MEDS ORDERED: WARFARIN SOD 2.5 MG TAB PO SCH (16:00)
[2017-01-06] MEDS: ASPIRIN EC 81 MG TABEC PO SCH (19:59)
[2017-01-07] VITALS (21 sets, daily range): BP systolic 91–119; BP diastolic 60–73; PULSE 59–84; RESP 16–20; TEMP 97.2–98; O2SAT 92–96
[2017-01-07] MEDS: BUDESONIDE-FORMOTEROL 160/4.5 MCG INHALER INH SCH ×2 (08:53→21:01)
[2017-01-07] MEDS: FUROSEMIDE 20 MG TAB PO SCH (08:53)
[2017-01-07] MEDS: predniSONE 5 MG TAB PO SCH (08:53)
[2017-01-07] MEDS: ACETAMIN 325 MG/BUTALBITAL 50 MG/CAFFEINE 40 MG TAB PO PRN ×2 (08:54→16:58)
[2017-01-07] MEDS: DOCUSATE SODIUM 50 MG/SENNA 8.6 MG TAB PO SCH ×2 (08:54→20:21)
[2017-01-07] MEDS: CHOLECALCIFEROL (VIT D3) 1000 UNIT TAB PO SCH (08:54)
[2017-01-07] MEDS: SODIUM CHLORIDE 0.9% FLUSH 10 ML FLUSH IV FLUSH SCH ×2 (08:55→20:22)
--- NOTE | 2017-01-07 09:23 | HHI.PR ---
Subjective Remarks The patient is a margin of the bed. He feels short of breath. Is currently on nasal cannula is he says he has oxygen at home. No chest pain, shortness of breath, nausea, vomiting, diarrhea or constipation. Objective Vitals Vital Signs Date Time Temp Pulse Resp B/P Pulse Ox O2 Delivery O2 Flow Rate FiO2 01/07/17 08:00 97.8 72 16 91/60 93 01/07/17 06:39 68 01/07/17 05:00 72 01/07/17 04:19 73 01/07/17 04:10 97.3 70 98/68 92 01/07/17 03:00 68 01/07/17 02:00 68 01/07/17 01:00 68 01/07/17 00:48 59 01/07/17 00:27 97.7 69 107/64 94 01/06/17 23:00 76 01/06/17 22:00 68 01/06/17 21:00 72 01/06/17 20:00 69 113/78 94 01/06/17 20:00 85 01/06/17 16:16 83 01/06/17 16:16 97.6 81 18 106/72 98 01/06/17 12:06 97.5 83 18 107/68 94 01/06/17 12:06 86 01/06/17 10:37 18 I/O 01/06/17 01/06/17 01/06/17 01/07/17 01/07/17 01/07/17 07:00 15:00 23:00 07:00 15:00 23:00 Intake Total 480 ml 960 ml 480 ml Output Total 420 ml 725 ml 600 ml Balance 60 ml 235 ml -120 ml Intake Oral 480 ml 960 ml 480 ml Output Urine Total 420 ml 725 ml 600 ml Stool Total 0 ml # Bowel Movements 0 Result Diagram: 01/03/17 1530 01/03/17 1530 Imaging Last Impressions Head CT 01/03/171530 Signed Impressions: Service Date/Time: Tuesday, January 03, 2017 15:49 - CONCLUSION: 1. Evolving left occipital infarct. 2. No acute intracranial abnormality. Vasu Gil MD Chest X-Ray 01/03/17 153 Signed Impressions: Service Date/Time: Tuesday, January 03, 2017 15:46 - CONCLUSION: The lungs are clear. Harley Perry MD Objective Remarks GENERAL: Patient in no apparent distress, walking with a walker in the room. CARDIOVASCULAR: Regular rate and rhythm without murmurs RESPIRATORY: Clear to auscultation. Breath sounds equal bilaterally. No wheezes GASTROINTESTINAL: Abdomen soft, non-tender, nondistended. No guarding. MUSCULOSKELETAL: Extremities without edema. NEUROLOGICAL: Awake and alert. Normal speech A/P Problem List: (1) Headache ICD Code: R51 Status: Acute (2) Elevated troponin I level ICD Code: R74.8 Status: Acute Assessment and Plan Headache with associated dizziness, likely OLD CVA Images: Head CT shows left evolving occipital infarct. No changes -Tylenol for pain -Fioricet prn helping w headaches. will need script upon discharge. -Fall precautions -PT recommends home health PT however, discussed w CM regarding placement and they are working on it as pt doesn't have a place to stay Elevated troponin, Troponin .10, admitted on 11/01, baseline troponin .10 however trops did go up to 0.38 then down to 0.24 EKG shows a paced rhythm -Dr. Germain evaluated the patient and recommends pt being on anticoagulation, no intervention at this time. I have restarted pt on coumadin 2.5mg po daily. Pt was discharged on it in october of this year and was cleared by both cards and neuro at the time. pt admits that he has been taking it but was evicted 4 days ago and hasn't been taking any of his meds. Discussed w CM and they will try to see if he could go to SNF for short period of time and this would help to monitor INRs daily until he is therapeutic. HTN, chronic currently stable - BPs low normal and controlled. on lasix COPD: on home meds DVT prophylaxis: coumadin, will need daily INRs as an outpatient. Discharge Planning Transfer to med surg floor CM assisting w d/c planning. Patient is a difficult discharge because he has nowhere to go as he was evicted from his home 4 days ago. He does need monitoring of his INR and home health cannot help if he does not have a place to stay. Case management is working on d/c planning and trying to see if he would be accepted to a SNF. Esme Driver MD Jan 07, 2017 09:23
[2017-01-07 15:40] LABS: PROTHROMBIN TIME - PATIENT 11.4 SEC (9.8-11.6)
[2017-01-07] MEDS ORDERED: WARFARIN SOD 5 MG TAB PO SCH (16:00)
[2017-01-07] MEDS: ASPIRIN EC 81 MG TABEC PO SCH (20:21)
[2017-01-08] VITALS: BP 109/66; PULSE 72; RESP 20; TEMP 97.6; O2SAT 94
[2017-01-08 04:00] VITALS: BP 104/59; PULSE 76; RESP 20; TEMP 98.6; O2SAT 95
[2017-01-08 07:32] LABS: PROTHROMBIN TIME - PATIENT 11.4 SEC (9.8-11.6)
[2017-01-08 08:00] VITALS: BP 110/68; PULSE 68; PULSE 69; RESP 18; TEMP 97.4; O2SAT 92
[2017-01-08] MEDS: CHOLECALCIFEROL (VIT D3) 1000 UNIT TAB PO SCH (09:59)
[2017-01-08] MEDS: DOCUSATE SODIUM 50 MG/SENNA 8.6 MG TAB PO SCH ×2 (09:59→20:43)
[2017-01-08] MEDS: BUDESONIDE-FORMOTEROL 160/4.5 MCG INHALER INH SCH ×2 (09:59→20:44)
[2017-01-08] MEDS: FUROSEMIDE 20 MG TAB PO SCH (09:59)
[2017-01-08] MEDS: predniSONE 5 MG TAB PO SCH (09:59)
[2017-01-08] MEDS: SODIUM CHLORIDE 0.9% FLUSH 10 ML FLUSH IV FLUSH SCH ×2 (10:00→20:44)
[2017-01-08 12:00] VITALS: BP 100/62; PULSE 72; RESP 18; TEMP 97.2; O2SAT 91
[2017-01-08 16:00] VITALS: BP 112/70; PULSE 87; RESP 18; TEMP 97.9; O2SAT 93
[2017-01-08] MEDS: WARFARIN SOD 5 MG TAB PO SCH (19:21)
--- NOTE | 2017-01-08 19:50 | HHI.PR ---
Subjective Remarks patient c/o severe headache, nausea and photophobia denies cp denies double or blurry vision denies vomiting vital signs stable- noted to have oxygen desaturations into the low 90's. Objective Vitals Vital Signs Date Time Temp Pulse Resp B/P Pulse Ox O2 Delivery O2 Flow Rate FiO2 01/08/17 16:00 97.9 87 18 112/70 93 01/08/17 12:00 97.2 72 18 100/62 91 01/08/17 08:00 97.4 68 18 110/68 92 01/08/17 08:00 69 01/08/17 08:00 96 Nasal Cannula 2.00 01/08/17 04:00 Nasal Cannula 2.00 01/08/17 04:00 98.6 76 20 104/59 95 01/08/17 00:00 Nasal Cannula 2.00 01/08/17 00:00 97.6 72 20 109/66 94 01/07/17 20:00 Nasal Cannula 2.00 01/07/17 20:00 70 01/07/17 20:00 97.8 75 20 114/73 96 I/O 01/07/17 01/07/17 01/07/17 01/08/17 01/08/17 01/08/17 07:00 15:00 23:00 07:00 15:00 23:00 Intake Total 480 ml 420 ml 240 ml 800 ml Output Total 600 ml Balance -120 ml 420 ml 240 ml 800 ml Intake Oral 480 ml 420 ml 240 ml 800 ml Output Urine Total 600 ml # Voids 1 2 4 # Bowel Movements 1 Imaging Last Impressions Head CT 01/03/17 1531 Signed Impressions: Service Date/Time: Tuesday, January 03, 2017 15:49 - CONCLUSION: 1. Evolving left occipital infarct. 2. No acute intracranial abnormality. Vasu Gil MD Chest X-Ray 01/03/17 1531 Signed Impressions: Service Date/Time: Tuesday, January 03, 2017 15:46 - CONCLUSION: The lungs are clear. Harley Perry MD Objective Remarks GENERAL: This is a well-nourished, well-developed patient, in moderate distress. SKIN: No rashes, ecchymoses or lesions. Cool and dry. HEAD: Atraumatic. Normocephalic. No temporal or scalp tenderness. EYES: Pupils equal round and reactive. Extraocular motions intact. No scleral icterus. No injection or drainage. ENT: Nose without bleeding, purulent drainage or septal hematoma. Airway patent. NECK: Trachea midline. No JVD or lymphadenopathy. Supple, nontender, no meningeal signs. CARDIOVASCULAR: Regular rate and rhythm without murmurs, gallops, or rubs. RESPIRATORY: BL expiratory wheezing. Decreased breath sounds BL. No rhonchi or crackles auscultated. GASTROINTESTINAL: Abdomen soft, non-tender, nondistended. No hepato-splenomegaly , or palpable masses. No guarding. MUSCULOSKELETAL: Extremities without clubbing, cyanosis, or edema. No joint tenderness, effusion, or edema noted. No calf tenderness. NEUROLOGICAL: Awake and alert. Cranial nerves II through XII intact. Motor and sensory grossly within normal limits. Five out of 5 muscle strength in all muscle groups. Normal Medications and IVs Current Medications Medications (Trade) Dose Ordered Sig/Leticia Route Start Time Stop Time Status Last Admin (NS Flush) 2 ml UNSCH PRN IV FLUSH 01/03/17 18:00 (NS Flush) 2 ml BID IV FLUSH 01/03/17 21:00 01/09/17 09:00 (Zofran Inj) 4 mg Q6H PRN IVP 01/03/17 18:00 (Narcan Inj) 0.4 mg UNSCH PRN IV 01/03/17 18:00 (Sally-Colace) 1 tab BID PO 01/03/17 21:00 01/09/17 09:11 (Milk Of Magnesia Liq) 30 ml Q12H PRN PO 01/03/17 18:00 (Senokot) 17.2 mg Q12H PRN PO 01/03/17 18:00 (Dulcolax Supp) 10 mg DAILY PRN RECTAL 01/03/17 18:00 (Lactulose Liq) 30 ml DAILY PRN PO 01/03/17 18:00 (Morphine Inj) 1 mg Q4HR PRN IV PUSH 01/03/17 18:00 (Nitroglycerin 2% Oint) 0.5 inch Q6HR PRN TOPICAL 01/03/17 18:00 (Fioricet 325-50-40) 1 tab Q8H PRN PO 01/03/17 18:30 01/09/17 09:11 (Ecotrin Ec) 81 mg HS PO 01/03/17 21:00 01/08/17 20:43 (Symbicort 160-4.5 Inh) 2 puff Q12HR INH 01/03/17 21:00 01/09/17 09:00 (Vitamin D3) 1,000 units DAILY PO 01/04/17 09:00 01/09/17 09:11 (Lasix) 20 mg DAILY PO 01/04/17 09:00 01/09/17 09:11 Prednisone 5 mg 5 mg DAILY PO 01/04/17 09:00 01/09/17 09:11 (Coumadin Consult Pharmacy) 0 ml @ 0 mls/hr UNSCH OTHER 01/07/17 09:30 (Coumadin) 5 mg DAILY@16 PO 01/08/17 20:00 01/08/17 19:21 (SoluMEDROL INJ) 40 mg Q6HR IV PUSH 01/09/17 00:00 01/09/17 05:35 Sumatriptan Succinate 6 mg 6 mg UNSCH PRN SQ 01/08/17 20:15 (Levaquin 750 Mg Premix Inj) 150 ml @ 100 mls/hr Q24H IV 01/08/17 21:00 01/08/17 20:43 (Coumadin) 2.5 mg ONCE PO 01/09/17 16:00 01/09/17 23:59 Urinary Catheter: No Vascular Central Line Catheter: No A/P Problem List: (1) Headache ICD Code: R51 Status: Acute Plan: Evolving left occipital infarct. No acute intracranial abnormality Likely secondary to evolving ischemic CVA, migraine headaches also possible. Continue pain control with Fioricet. Consult neurology We'll give Imitrex or suspected migraine headaches since patient has headaches and nausea. (2) Elevated troponin I level ICD Code: R74.8 Status: Acute Plan: Elevated troponin, Troponin .10, admitted on 11/01, baseline troponin .10 however trops did go up to 0.38 then down to 0.24 EKG shows a paced rhythm -Dr. Germain evaluated the patient and recommends pt being on anticoagulation, no intervention at this time. (3) Atrial fibrillation ICD Code: I48.91 Status: Acute Plan: EKG on admission reviewed by me showed paced rhythm. Continue Coumadin, Harley consulted to help with dosing. Monitor PT/INR (4) CVA (cerebral vascular accident) ICD Code: I63.9 Status: Chronic Plan: As mentioned above on CT scan of the head. Patient has an evolving left occipital infarct. Continue aspirin fu neurology recommendations (5) COPD with exacerbation ICD Code: J44.1 Status: Acute Plan: Patient has history of COPD. On exam the patient has bilateral expiratory wheezing. I will start the patient on IV Solu-Medrol and IV Levaquin. Will also start bronchodilators. Assessment and Plan DVT prophylaxis: SCD's, will start on heparin SQ until INR therapeutic Discharge Planning Continue to monitor in the medical floor. Neurology consulted. Patient still with severe headaches. Problem Qualifiers (1) Headache: (2) Atrial fibrillation: Qualified Code: I48.2 - Chronic atrial fibrillation (3) CVA (cerebral vascular accident): Qualified Code: I63.9 - Cerebrovascular accident (CVA), unspecified mechanism Elliott Baez MD Jan 08, 2017 19:50
[2017-01-08 20:00] VITALS: BP 126/66; PULSE 70; PULSE 73; RESP 20; TEMP 97.2; O2SAT 95
[2017-01-08] MEDS ORDERED: methylPREDNISolone SOD SUCC 125 MG/2 ML VIAL IV PUSH ONE (20:15)
[2017-01-08] MEDS ORDERED: SUMAtriptan INJ 6 MG/0.5 ML VIAL SQ PRN (20:15)
[2017-01-08] MEDS: ASPIRIN EC 81 MG TABEC PO SCH (20:43)
[2017-01-08] MEDS: LEVOFLOXACIN 750 MG PREMIX INJ 150 ML IV SCH (20:43)
[2017-01-08] MEDS: ACETAMIN 325 MG/BUTALBITAL 50 MG/CAFFEINE 40 MG TAB PO PRN (20:57)
[2017-01-09] VITALS (9 sets, daily range): BP systolic 103–119; BP diastolic 56–69; PULSE 73–93; RESP 18–20; TEMP 97.4–98.3; O2SAT 90–95
[2017-01-09] MEDS: methylPREDNISolone SOD SUCC 40 MG/1 ML VIAL IV PUSH SCH ×3 (05:35→11:52)
[2017-01-09 08:08] LABS: PROTHROMBIN TIME - PATIENT 11.2 SEC (9.8-11.6)
[2017-01-09] MEDS: SODIUM CHLORIDE 0.9% FLUSH 10 ML FLUSH IV FLUSH SCH ×2 (09:00→22:52)
[2017-01-09] MEDS: BUDESONIDE-FORMOTEROL 160/4.5 MCG INHALER INH SCH ×2 (09:00→22:52)
--- NOTE | 2017-01-09 09:07 | PD.PN.STU ---
Subjective Remarks Patient states he is feeling better but still has a headache and would like pain medication for his chronic back pain. He says that he has been taking pain medication for a back injury since 1968. Denies chest pain, sob, abdominal pain , N/V. Denies urinary symptoms. Denies fevers, chills. Objective Vitals Vital Signs Date Time Temp Pulse Resp B/P Pulse Ox O2 Delivery O2 Flow Rate FiO2 01/09/17 04:58 Nasal Cannula 2.00 01/09/17 04:00 97.4 76 18 113/66 95 01/09/17 00:00 Nasal Cannula 2.00 01/09/17 00:00 97.5 76 18 103/58 94 01/08/17 20:00 Nasal Cannula 2.00 01/08/17 20:00 73 01/08/17 20:00 97.2 70 20 126/66 95 01/08/17 16:00 97.9 87 18 112/70 93 01/08/17 12:00 97.2 72 18 100/62 91 I/O 01/08/17 01/08/17 01/08/17 01/09/17 01/09/17 01/09/17 07:00 15:00 23:00 07:00 15:00 23:00 Intake Total 240 ml 800 ml 510 ml 240 ml Output Total 400 ml Balance 240 ml 800 ml 110 ml 240 ml Intake Oral 240 ml 800 ml 360 ml 240 ml IV Total 150 ml Output Urine Total 400 ml # Voids 2 4 1 # Bowel Movements 1 1 0 Objective Remarks GENERAL: pleasant male, in no apparent distress. Able to maintain pleasant conversation with eye contact. CARDIOVASCULAR: Regular rate and rhythm without murmurs, rubs or gallops. Peripheral pulses 2+. RESPIRATORY: Clear to auscultation. Breath sounds equal bilaterally. No wheezes GASTROINTESTINAL: Abdomen soft, non-tender, nondistended. No guarding. MUSCULOSKELETAL: Extremities without edema. NEUROLOGICAL: Awake and alert. Normal speech A/P Assessment and Plan 1. Headache - CT scan showed evolving left occipital infarct - control pain with Tylenol - PT recommends home health but patient was evicted recently. Trying to find SNIFF for placement. Patient uses a walker. 2. Atrial fibrillation - currently anticoagulated with warfarin 2.5 mg po. 3. HTN - controlled on furosemide 4. COPD - patient currently on nasal cannula. Has oxygen at home as well. - Continue home medications. Kita Ascencio M3 Jan 09, 2017 09:07
[2017-01-09] MEDS: FUROSEMIDE 20 MG TAB PO SCH (09:11)
[2017-01-09] MEDS: CHOLECALCIFEROL (VIT D3) 1000 UNIT TAB PO SCH (09:11)
[2017-01-09] MEDS: ACETAMIN 325 MG/BUTALBITAL 50 MG/CAFFEINE 40 MG TAB PO PRN ×2 (09:11→17:03)
[2017-01-09] MEDS: predniSONE 5 MG TAB PO SCH (09:11)
[2017-01-09] MEDS: DOCUSATE SODIUM 50 MG/SENNA 8.6 MG TAB PO SCH ×2 (09:11→21:00)
--- NOTE | 2017-01-09 09:38 | MB ---
cc: CHARISSA MERCER DATE OF CONSULTATION 01/09/2017 REASON FOR CONSULTATION Headache and remote history of stroke. HISTORY OF PRESENT ILLNESS Mr. Harris is a 66-year-old male with history of ischemic stroke in the left occipital lobe in August 2016, coronary artery disease, atrial fibrillation, hyperlipidemia, COPD, hypertension, status pacemaker placement. He presented to the ED with complaints of headache. The patient is on multiple medications at home, opiates, pain killers, Fioricet, Toradol, prednisone, methylprednisolone and he is confused about the doses that he is on at home. The patient has sustained a head injury in October where he fell while walking [place] and he was diagnosed with concussion at that time. The headache is holocephalic, associated with dizziness, occasional blurring, constant. Denies tinnitus, double vision or temporal headache, no associated nausea or vomiting and he thinks that it started all after the concussion in October. He denies any new weakness of an extremity or loss of consciousness. REVIEW OF SYSTEMS A 12-point review of systems is negative except for what is stated in the HPI. PAST MEDICAL HISTORY 1. Ischemic stroke to the left occipital region. 2. Coronary artery disease status post pacemaker. 3. Atrial fibrillation status post pacemaker. 4. COPD. 5. Hypertension. 6. Hyperlipidemia. 7. Concussion. PAST SURGICAL HISTORY CABG. Pacemaker. MEDICATIONS 1. Tramadol. 2. Prednisone. 3. Vitamin D3. 4. Butalbital/acetaminophen/caffeine. 5. Lasix. 6. Symbicort. 7. DuoNeb. 8. Aspirin 81. ALLERGIES No known allergies but PACEMAKER IS NOT COMPATIBLE TO MRI. FAMILY HISTORY Father with stroke. Mother with diabetes. SOCIAL HISTORY He used to be a smoker for 40 years, quit 2 years ago. Occasional use of alcohol. Denies illicit drug abuse. PHYSICAL EXAMINATION GENERAL: Awake, alert, poor historian, not in acute distress. HEENT: Atraumatic, normocephalic. Intact vision. Intact hearing. Right visual field cut. NECK: No carotid bruits. No signs of meningeal irritation. CARDIOVASCULAR: Regular rate and rhythm. RESPIRATORY: Clear to auscultation. No wheezes. GASTROINTESTINAL: Soft abdomen. MUSCULOSKELETAL: Without clubbing, cyanosis or edema. NEUROLOGICAL: Awake, alert, oriented to time, person and place. Intact memory , intact speech. No dysarthria. No dysphasia. Right visual field cut/chronic secondary to the previous left occipital stroke. No nystagmus. Intact external ocular motility. grade 5/5 throughout bilateral upper and lower extremities with occasional give-away intact sensation to light touch and temperature bilateral and symmetrical. Reflexes 2+ bilateral and symmetrical. Plantars are bilaterally downgoing. LABORATORY DATA Hemoglobin 13.6, white blood cells 9, platelets 209. Sodium 140, potassium 4.2, BUN 14, creatinine 1.09, calcium 9, magnesium 2.3. Normal liver function tests. INR 1. DIAGNOSTIC IMAGING Head CT scan without contrast. Evolving left occipital infarct, no intracranial abnormality. Review of previous imaging revealed a neck CTA that revealed a left ICA aneurysm. DIAGNOSTIC IMPRESSION 1. Remote left occipital stroke. 2. Hypertension. 3. Hyperlipidemia. 4. A-fib status post pacemaker on Coumadin. 5. Chronic headache. PLAN 1. Neuro checks q. 4 hours. 2. Continue aspirin 81 mg. 3. Continue Coumadin 5 mg daily and follow up INR. 4. Follow up CTA neck. 5. Obtain sed rate and CRP. 6. DVT prophylaxis. 7. GI prophylaxis. Thank you for the opportunity to participate in the care of your patient. MD AFRICA Salinas/EVI /9:08 AM /9:23 AM MICHAEL
[2017-01-09] MEDS ORDERED: IOHEXOL 350 MG/ML 10 ML VIAL (for RAD DIAG) IV ONE (10:54)
[2017-01-09 11:38] LABS: AUTOMATED NEUTROPHIL # 11.2 TH/MM3 (1.8-7.7); BASOPHIL % 0.2 % (0.0-2.0); EOSINOPHIL % 0.1 % (0.0-4.0); HEMATOCRIT 46.9 % (39.0-51.0); HEMO FLAGS DIFF FINAL; LYMPH % 5.8 % (9.0-44.0); LYMPHOCYTE # 0.7 TH/MM3 (1.0-4.8); MEAN CELL VOLUME 88.8 FL (80.0-100.0); MEAN CORPUSCULAR HGB CONC 31.5 % (32.0-36.0); MONO % 2.2 % (0.0-8.0); NEUT % 91.7 % (16.0-70.0); PLATELET COUNT 219 TH/MM3 (150-450); RED BLOOD COUNT 5.28 MIL/MM3 (4.50-5.90); RED CELL DISTRIBUTION WIDTH 14.2 % (11.6-17.2); WHITE BLOOD COUNT 12.2 TH/MM3 (4.0-11.0)
[2017-01-09 12:04] LABS: ALKALINE PHOSPHATASE 81 U/L (45-117); TOTAL BILIRUBIN ADULT 0.3 MG/DL (0.2-1.0)
[2017-01-09 12:08] LABS: ALT (GPT) 23 U/L (12-78); ANION GAP 11 MEQ/L (5-15); AST (GOT) 23 U/L (15-37); BICARBONATE 25.2 MEQ/L (21.0-32.0); BLOOD UREA NITROGEN 17 MG/DL (7-18); CHLORIDE 104 MEQ/L (98-107); GLOMERULAR FILTRATION RATE 82 ML/MIN (>89); MAGNESIUM 2.4 MG/DL (1.5-2.5); POTASSIUM 4.7 MEQ/L (3.5-5.1); SODIUM (NA) 140 MEQ/L (136-145)
--- NOTE | 2017-01-09 13:47 | RADRPT ---
EXAM DATE/TIME: 01/09/2017 10:54 [facility] COMPARISON: CT BRAIN W/O CONTRAST, January 03, 2017, 15:49. INDICATIONS : Evaluate left corotid aneursym. IV CONTRAST: 100 cc Omnipaque 350 (iohexol) IV RADIATION DOSE: 12.05 CTDIvol (mGy) MEDICAL HISTORY : Cardiovascular disease. SURGICAL HISTORY : Pacemaker. CABG ENCOUNTER: Initial ACUITY: 1 day PAIN SCALE: 0/10 LOCATION: Left neck Elevated flow velocities and ICA/CCA ratios have been found to correlate with increased degrees of vessel stenosis, calculated as percentage of diameter relative to a normal segment of distal ICA/CCA. TECHNIQUE: Volumetric scanning was performed using a multirow detector CT scanner. The data was post processed with a variety of visualization algorithms including full-volume maximum intensity projection, multip lanar sliding thin-slab reformation, curved-planar reformation, and surface-rendering techniques. Us ing automated exposure control and adjustment of the mA and/or kV according to patient size, radiatio n dose was kept as low as reasonably achievable to obtain optimal diagnostic quality images. FINDINGS: AORTIC ARCH: There is a three-vessel origin of the great vessels from the aorta. No evidence of ostial narrowing. RIGHT CAROTID: The common carotid is widely patent. There is mild atherosclerotic plaquing at the bifurcation. No he modynamically significant stenosis is identified. There is a 3 mm aneurysm arising from the cervical internal carotid. LEFT CAROTID: The common carotid is widely patent. There is mild atherosclerotic plaquing at the bifurcation. No he modynamically significant stenosis is identified. The examination does demonstrate a small saccular a neurysm arising from the proximal internal carotid at the level of C2. This measures 5 mm in maximum dimension. The more cephalad portion of internal carotid is widely patent. VERTEBRALS: The left vertebral somewhat smaller in size than the right. Both are widely patent. The basilar is wi madhuri patent. CONCLUSION: 1. 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 2. 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 3. Atherosclerotic plaquing at the carotid bifurcations. No hemodynamically significant carotid arter y stenosis is identified. 4. COPD changes in the lung apices. Castillo Garibay MD on January 09, 2017 at 13:25 Board Certified Radiologist. This report was verified electronically.
--- NOTE | 2017-01-09 14:37 | HHI.PR ---
Subjective Remarks Patient states headache is much improved Denies chest pain or shortness of breath Patient states he still coughing Has a stable vital signs. Blood sugar elevated Objective Vitals Vital Signs Date Time Temp Pulse Resp B/P Pulse Ox O2 Delivery O2 Flow Rate FiO2 01/09/17 08:00 97.5 88 20 107/56 91 01/09/17 04:58 Nasal Cannula 2.00 01/09/17 04:00 97.4 76 18 113/66 95 01/09/17 00:00 Nasal Cannula 2.00 01/09/17 00:00 97.5 76 18 103/58 94 01/08/17 20:00 Nasal Cannula 2.00 01/08/17 20:00 73 01/08/17 20:00 97.2 70 20 126/66 95 01/08/17 16:00 97.9 87 18 112/70 93 I/O 01/08/17 01/08/17 01/08/17 01/09/17 01/09/17 01/09/17 07:00 15:00 23:00 07:00 15:00 23:00 Intake Total 240 ml 800 ml 510 ml 240 ml Output Total 400 ml Balance 240 ml 800 ml 110 ml 240 ml Intake Oral 240 ml 800 ml 360 ml 240 ml IV Total 150 ml Output Urine Total 400 ml # Voids 2 4 1 # Bowel Movements 1 1 0 Result Diagram: 01/09/17 0949 01/09/17 1019 Imaging Last Impressions Neck CTA 01/09/17 0000 Signed Impressions: Service Date/Time: Monday, January 09, 2017 10:54 - CONCLUSION: 1. 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 2. 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 3. Atherosclerotic plaquing at the carotid bifurcations. No hemodynamically significant carotid artery stenosis is identified. 4. COPD changes in the lung apices. Castillo Garibay MD Head CT 01/03/17 1531 Signed Impressions: Service Date/Time: Tuesday, January 03, 2017 15:49 - CONCLUSION: 1. Evolving left occipital infarct. 2. No acute intracranial abnormality. Vasu Gil MD Chest X-Ray 01/03/17 1531 Signed Impressions: Service Date/Time: [place], January 03, 2017 15:46 - CONCLUSION: The lungs are clear. Harley Perry MD Objective Remarks GENERAL: This is a well-nourished, well-developed patient, in moderate distress. SKIN: No rashes, ecchymoses or lesions. Cool and dry. HEAD: Atraumatic. Normocephalic. No temporal or scalp tenderness. EYES: Pupils equal round and reactive. Extraocular motions intact. No scleral icterus. No injection or drainage. ENT: Nose without bleeding, purulent drainage or septal hematoma. Airway patent. NECK: Trachea midline. No JVD or lymphadenopathy. Supple, nontender, no meningeal signs. CARDIOVASCULAR: Regular rate and rhythm without murmurs, gallops, or rubs. RESPIRATORY: Decreased breath sounds bilaterally. The bilateral expiratory wheezing previously heard has resolved. No crackles or rhonchi auscultated. GASTROINTESTINAL: Abdomen soft, non-tender, nondistended. No hepato-splenomegaly , or palpable masses. No guarding. MUSCULOSKELETAL: Extremities without clubbing, cyanosis, or edema. No joint tenderness, effusion, or edema noted. No calf tenderness. NEUROLOGICAL: Awake and alert. Cranial nerves II through XII intact. Motor and sensory grossly within normal limits. Five out of 5 muscle strength in all muscle groups. Normal Medications and IVs Current Medications Medications (Trade) Dose Ordered Sig/Leticia Route Start Time Stop Time Status Last Admin (NS Flush) 2 ml UNSCH PRN IV FLUSH 01/03/17 18:00 (NS Flush) 2 ml BID IV FLUSH 01/03/17 21:00 01/09/17 09:00 (Zofran Inj) 4 mg Q6H PRN IVP 01/03/17 18:00 (Narcan Inj) 0.4 mg UNSCH PRN IV 01/03/17 18:00 (Sally-Colace) 1 tab BID PO 01/03/17 21:00 01/09/17 09:11 (Milk Of Magnesia Liq) 30 ml Q12H PRN PO 01/03/17 18:00 (Senokot) 17.2 mg Q12H PRN PO 01/03/17 18:00 (Dulcolax Supp) 10 mg DAILY PRN RECTAL 01/03/17 18:00 (Lactulose Liq) 30 ml DAILY PRN PO 01/03/17 18:00 (Morphine Inj) 1 mg Q4HR PRN IV PUSH 01/03/17 18:00 (Nitroglycerin 2% Oint) 0.5 inch Q6HR PRN TOPICAL 01/03/17 18:00 (Fioricet 325-50-40) 1 tab Q8H PRN PO 01/03/17 18:30 01/09/17 17:03 (Ecotrin Ec) 81 mg HS PO 01/03/17 21:00 01/08/17 20:43 (Symbicort 160-4.5 Inh) 2 puff Q12HR INH 01/03/17 21:00 01/09/17 09:00 (Vitamin D3) 1,000 units DAILY PO 01/04/17 09:00 01/09/17 09:11 (Lasix) 20 mg DAILY PO 01/04/17 09:00 01/09/17 09:11 Prednisone 5 mg 5 mg DAILY PO 01/04/17 09:00 Hold 01/09/17 09:11 (Coumadin Consult Pharmacy) 0 ml @ 0 mls/hr UNSCH OTHER 01/07/17 09:30 (Coumadin) 5 mg DAILY@16 PO 01/08/17 20:00 01/09/17 15:19 Sumatriptan Succinate 6 mg 6 mg UNSCH PRN SQ 01/08/17 20:15 (Levaquin 750 Mg Premix Inj) 150 ml @ 100 mls/hr Q24H IV 01/08/17 21:00 01/08/17 20:43 (Coumadin) 2.5 mg ONCE PO 01/09/17 16:00 01/09/17 23:59 01/09/17 15:19 (SoluMEDROL INJ) 40 mg Q12H IV PUSH 01/10/17 00:00 Urinary Catheter: No Vascular Central Line Catheter: No A/P Problem List: (1) Headache ICD Code: R51 Status: Acute Plan: Evolving left occipital infarct. No acute intracranial abnormality Likely secondary to evolving ischemic CVA, migraine headaches also possible. Continue pain control with Fioricet. Neurology consulted on following Patient had partial response to Imitrex. 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 Atherosclerotic plaquing at the carotid bifurcations. No hemodynamically significant carotid stenosis identified. COPD changes are observed in the lung apices. (2) Elevated troponin I level ICD Code: R74.8 Status: Acute Plan: Elevated troponin, Troponin .10, admitted on 11/01, baseline troponin .10 however trops did go up to 0.38 then down to 0.24 EKG shows a paced rhythm -Dr. Germain evaluated the patient and recommends pt being on anticoagulation, no intervention at this time. (3) Atrial fibrillation ICD Code: I48.91 Status: Acute Plan: EKG on admission reviewed by me showed paced rhythm. Continue Coumadin, Harley consulted to help with dosing. Monitor PT/INR (4) CVA (cerebral vascular accident) ICD Code: I63.9 Status: Chronic Plan: As mentioned above on CT scan of the head. Patient has an evolving left occipital infarct. Continue aspirin fu neurology recommendations (5) COPD with exacerbation ICD Code: J44.1 Status: Acute Plan: Patient has history of COPD. Shortness of breath and cough improving. Tapered dose of IV Solu-Medrol to 40 mg IV every 12 hours. Continue IV Levaquin. Continue supplemental oxygen to keep on oxygen saturation more than 92%. Assessment and Plan DVT prophylaxis: SCD's, will start on heparin SQ until INR therapeutic Discharge Planning Continue to monitor in the medical floor. Neurology consulted. Patient still with severe headaches. Problem Qualifiers (1) Headache: (2) Atrial fibrillation: Qualified Code: I48.2 - Chronic atrial fibrillation (3) CVA (cerebral vascular accident): Qualified Code: I63.9 - Cerebrovascular accident (CVA), unspecified mechanism Elliott Baez MD Jan 09, 2017 14:37
[2017-01-09] MEDS: WARFARIN SOD 5 MG TAB PO SCH (15:19)
[2017-01-09] MEDS ORDERED: WARFARIN SOD 2.5 MG TAB PO SCH (16:00)
[2017-01-09 17:10] LABS: HEMOGLOBIN A1a 0.9 %; HEMOGLOBIN A1b 1.8 %; HEMOGLOBIN Ao 84.8 %; HEMOGLOBIN LA1C 2.3 %
--- NOTE | 2017-01-09 20:45 | PD.CAR.PN ---
CVT Progress Note Subjective/Hospital Course: referral received Full consult SHEEBA Raman Objective: Vital Signs Date Time Temp Pulse Resp B/P Pulse Ox O2 Delivery O2 Flow Rate FiO2 01/09/17 16:00 Room Air 01/09/17 16:00 98.3 83 20 106/69 90 01/09/17 12:00 97.4 84 20 119/61 93 01/09/17 12:00 Room Air 01/09/17 09:00 93 01/09/17 08:00 97.5 88 20 107/56 91 01/09/17 08:00 Nasal Cannula 2.00 01/09/17 04:58 Nasal Cannula 2.00 01/09/17 04:00 97.4 76 18 113/66 95 01/09/17 00:00 Nasal Cannula 2.00 01/09/17 00:00 97.5 76 18 103/58 94 Labs: Laboratory Tests Test 01/09/17 01/09/17 09:49 10:19 White Blood Count 12.2 TH/MM3 (4.0-11.0) Red Blood Count 5.28 MIL/MM3 (4.50-5.90) Hemoglobin 14.8 GM/DL (13.0-17.0) Hematocrit 46.9 % (39.0-51.0) Mean Corpuscular Volume 88.8 FL (80.0-100.0) Mean Corpuscular Hemoglobin 28.0 PG (27.0-34.0) Mean Corpuscular Hemoglobin 31.5 % Concent (32.0-36.0) Red Cell Distribution Width 14.2 % (11.6-17.2) Platelet Count 219 TH/MM3 (150-450) Mean Platelet Volume 9.6 FL (7.0-11.0) Neutrophils (%) (Auto) 91.7 % (16.0-70.0) Lymphocytes (%) (Auto) 5.8 % (9.0-44.0) Monocytes (%) (Auto) 2.2 % (0.0-8.0) Eosinophils (%) (Auto) 0.1 % (0.0-4.0) Basophils (%) (Auto) 0.2 % (0.0-2.0) Neutrophils # (Auto) 11.2 TH/MM3 (1.8-7.7) Lymphocytes # (Auto) 0.7 TH/MM3 (1.0-4.8) Monocytes # (Auto) 0.3 TH/MM3 (0-0.9) Eosinophils # (Auto) 0.0 TH/MM3 (0-0.4) Basophils # (Auto) 0.0 TH/MM3 (0-0.2) CBC Comment DIFF FINAL Differential Comment Hemoglobin A1c 5.6 % (4.3-6.0) Erythrocyte Sedimentation Rate 2 mm/hr (0-20) Sodium Level 140 MEQ/L (136-145) Potassium Level 4.7 MEQ/L (3.5-5.1) Chloride Level 104 MEQ/L (98-107) Carbon Dioxide Level 25.2 MEQ/L (21.0-32.0) Anion Gap 11 MEQ/L (5-15) Blood Urea Nitrogen 17 MG/DL (7-18) Creatinine 0.92 MG/DL (0.60-1.30) Estimat Glomerular Filtration 82 ML/MIN (>89) Rate Random Glucose 136 MG/DL (74-106) Calcium Level 9.6 MG/DL (8.5-10.1) Phosphorus Level 3.3 MG/DL (2.5-4.9) Magnesium Level 2.4 MG/DL (1.5-2.5) Total Bilirubin 0.3 MG/DL (0.2-1.0) Aspartate Amino Transf 23 U/L (15-37) (AST/SGOT) Alanine Aminotransferase 23 U/L (12-78) (ALT/SGPT) Alkaline Phosphatase 81 U/L (45-117) C-Reactive Protein 0.39 MG/DL (0.00-0.30) Total Protein 7.0 GM/DL (6.4-8.2) Albumin 3.9 GM/DL (3.4-5.0) Result Diagram: 01/09/17 0949 01/09/17 1019 Abhay Cornejo MD Jan 09, 2017 20:45
[2017-01-09] MEDS: LEVOFLOXACIN 750 MG PREMIX INJ 150 ML IV SCH (22:48)
[2017-01-09] MEDS: ASPIRIN EC 81 MG TABEC PO SCH (22:54)
[2017-01-10] VITALS (9 sets, daily range): BP systolic 88–114; BP diastolic 55–72; PULSE 67–91; RESP 16–20; TEMP 97.1–97.6; O2SAT 92–94
[2017-01-10] MEDS: methylPREDNISolone SOD SUCC 40 MG/1 ML VIAL IV PUSH SCH ×2 (00:35→12:16)
[2017-01-10] MEDS: ACETAMIN 325 MG/BUTALBITAL 50 MG/CAFFEINE 40 MG TAB PO PRN ×3 (00:35→22:39)
[2017-01-10 05:52] LABS: HEMATOCRIT 42.8 % (39.0-51.0); MEAN CELL VOLUME 87.5 FL (80.0-100.0); MEAN CORPUSCULAR HEMOGLOBIN 28.9 PG (27.0-34.0); MEAN CORPUSCULAR HGB CONC 33.1 % (32.0-36.0); PLATELET COUNT 225 TH/MM3 (150-450); RED BLOOD COUNT 4.89 MIL/MM3 (4.50-5.90); RED CELL DISTRIBUTION WIDTH 14.5 % (11.6-17.2); REVIEW FLAG FINAL; WHITE BLOOD COUNT 15.9 TH/MM3 (4.0-11.0)
[2017-01-10 06:07] LABS: INTERNATIONAL NORMALIZED RATIO 1.2 RATIO; PROTHROMBIN TIME - PATIENT 13.3 SEC (9.8-11.6)
[2017-01-10 06:16] LABS: BICARBONATE 27.3 MEQ/L (21.0-32.0)
[2017-01-10] MEDS: DOCUSATE SODIUM 50 MG/SENNA 8.6 MG TAB PO SCH ×2 (09:14→21:00)
[2017-01-10] MEDS: FUROSEMIDE 20 MG TAB PO SCH (09:14)
[2017-01-10] MEDS: CHOLECALCIFEROL (VIT D3) 1000 UNIT TAB PO SCH (09:14)
[2017-01-10] MEDS: SODIUM CHLORIDE 0.9% FLUSH 10 ML FLUSH IV FLUSH SCH ×2 (09:15→22:37)
[2017-01-10] MEDS: BUDESONIDE-FORMOTEROL 160/4.5 MCG INHALER INH SCH ×2 (09:15→22:33)
[2017-01-10] MEDS: WARFARIN SOD 5 MG TAB PO SCH (15:38)
[2017-01-10] MEDS ORDERED: WARFARIN SOD 2.5 MG TAB PO SCH (16:00)
--- NOTE | 2017-01-10 16:50 | HHI.PR ---
Review/Management Diagnosis 1. Remote left occipital stroke. 2. Hypertension. 3. Hyperlipidemia. 4. A-fib s/p pacemaker on Coumadin. 5. Chronic headache. 6. B/L ICA aneurysm Plan 1. Neuro checks q. 4 hours. 2. Continue aspirin 81 mg. 3. Continue Coumadin 5 mg daily and follow up INR. 4. Consult vascular surgery, recommendations are appreciated 5. DVT prophylaxis. 6. GI prophylaxis. Diagnosis/Plan: Subjective Subjective Comments No acute events reported Patient has no new complaints, sits on a chair with no apparent distress CTA neck revealed 5 mm left ICA aneurysm, and right ICA 3mm aneurysm Sed rate is unremarkable CRP is elevated Active Medications Current Medications Medications (Trade) Dose Ordered Sig/Leticia Route Start Time Stop Time Status Last Admin (NS Flush) 2 ml UNSCH PRN IV FLUSH 01/03/17 18:00 (NS Flush) 2 ml BID IV FLUSH 01/03/17 21:00 01/10/17 09:15 (Zofran Inj) 4 mg Q6H PRN IVP 01/03/17 18:00 (Narcan Inj) 0.4 mg UNSCH PRN IV 01/03/17 18:00 (Aslly-Colace) 1 tab BID PO 01/03/17 21:00 01/10/17 09:14 (Milk Of Magnesia Liq) 30 ml Q12H PRN PO 01/03/17 18:00 (Senokot) 17.2 mg Q12H PRN PO 01/03/17 18:00 (Dulcolax Supp) 10 mg DAILY PRN RECTAL 01/03/17 18:00 (Lactulose Liq) 30 ml DAILY PRN PO 01/03/17 18:00 (Morphine Inj) 1 mg Q4HR PRN IV PUSH 01/03/17 18:00 (Nitroglycerin 2% Oint) 0.5 inch Q6HR PRN TOPICAL 01/03/17 18:00 (Fioricet 325-50-40) 1 tab Q8H PRN PO 01/03/17 18:30 01/10/17 09:14 (Ecotrin Ec) 81 mg HS PO 01/03/17 21:00 01/09/17 22:54 (Symbicort 160-4.5 Inh) 2 puff Q12HR INH 01/03/17 21:00 01/10/17 09:15 (Vitamin D3) 1,000 units DAILY PO 01/04/17 09:00 01/10/17 09:14 (Lasix) 20 mg DAILY PO 01/04/17 09:00 01/10/17 09:14 Prednisone 5 mg 5 mg DAILY PO 01/04/17 09:00 Hold 01/09/17 09:11 (Coumadin Consult Pharmacy) 0 ml @ 0 mls/hr UNSCH OTHER 01/07/17 09:30 (Coumadin) 5 mg DAILY@16 PO 01/08/17 20:00 01/10/17 15:38 Sumatriptan Succinate 6 mg 6 mg UNSCH PRN SQ 01/08/17 20:15 (Levaquin 750 Mg Premix Inj) 150 ml @ 100 mls/hr Q24H IV 01/08/17 21:00 01/09/17 22:48 (SoluMEDROL INJ) 40 mg Q12H IV PUSH 01/10/17 00:00 01/10/17 12:16 (Coumadin) 2.5 mg ONCE PO 01/10/17 16:00 01/10/17 23:59 Allergies Allergies Coded Allergies MRI PRECAUTION (Verified Adverse Reaction, Severe, NON COMPATIBLE PACEMAKER LRS, 11/01/16) Exam I&O / VS 01/09/17 01/09/17 01/10/17 15:00 23:00 07:00 Intake Total 600 ml 240 ml 240 ml Output Total 475 ml 250 ml 575 ml Balance 125 ml -10 ml -335 ml Intake Oral 600 ml 240 ml 240 ml IV Total 0 ml Output Urine Total 475 ml 250 ml 575 ml # Bowel Movements 0 1 0 Vital Signs Date Time Temp Pulse Resp B/P Pulse Ox O2 Delivery O2 Flow Rate FiO2 01/10/17 12:03 97.4 75 20 109/61 92 01/10/17 09:10 70 16 107/65 01/10/17 08:10 Room Air 01/10/17 08:03 97.6 89 20 106/61 92 01/10/17 05:07 97.2 84 18 112/72 93 01/09/17 23:50 97.4 73 18 115/69 93 01/09/17 20:50 97.4 74 20 111/64 95 01/09/17 20:00 Room Air 01/09/17 20:00 87 Exam Comments GENERAL: Awake, alert, sits on a chair, not in acute distress. HEENT: Atraumatic, normocephalic. Intact vision. Intact hearing. Right visual field cut. NECK: No carotid bruits. No signs of meningeal irritation. CARDIOVASCULAR: Regular rate and rhythm. RESPIRATORY: Clear to auscultation. No wheezes. GASTROINTESTINAL: Soft abdomen. MUSCULOSKELETAL: No clubbing, cyanosis or edema. NEUROLOGICAL: Awake, alert, oriented to time, person and place. Intact memory , intact speech. No dysarthria. No dysphasia. Right visual field cut/chronic secondary to the previous left occipital stroke. No nystagmus. Intact external ocular motility. grade 5/5 throughout bilateral upper and lower extremities with occasional give-away intact sensation to light touch and temperature bilateral and symmetrical. Reflexes 2+ bilateral and symmetrical. Plantars are bilaterally downgoing. Objective Radiology Results Last 72 hours Impressions Neck CTA 01/09/17 0000 Signed Impressions: Service Date/Time: Monday, January 09, 2017 10:54 - CONCLUSION: 1. 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 2. 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 3. Atherosclerotic plaquing at the carotid bifurcations. No hemodynamically significant carotid artery stenosis is identified. 4. COPD changes in the lung apices. Castillo Garibay MD Micro and Labs Laboratory Tests Test 01/10/17 05:13 White Blood Count 15.9 Red Blood Count 4.89 Hemoglobin 14.1 Hematocrit 42.8 Mean Corpuscular Volume 87.5 Mean Corpuscular Hemoglobin 28.9 Mean Corpuscular Hemoglobin 33.1 Concent Red Cell Distribution Width 14.5 Platelet Count 225 Mean Platelet Volume 9.2 Prothrombin Time 13.3 Prothromb Time International 1.2 Ratio Sodium Level 138 Potassium Level 4.0 Chloride Level 102 Carbon Dioxide Level 27.3 Anion Gap 9 Blood Urea Nitrogen 16 Creatinine 0.97 Estimat Glomerular Filtration 77 Rate Random Glucose 126 Calcium Level 9.0 Serge Castillo MD Jan 10, 2017 16:50
--- NOTE | 2017-01-10 17:06 | MB ---
cc: ABHAY MENA MD DATE OF CONSULTATION 01/09/17 REASON FOR CONSULTATION Bilateral internal carotid artery aneurysms HISTORY OF PRESENT ILLNESS This 56-year-old male came to the emergency room with headaches. The patient has a history of ischemic left occipital stroke and coronary artery disease as well as atrial fibrillation. On a workup, He is found to have a 5 mm right and 3 mm left internal carotid artery aneurysm just below the level of the ___ and question arises if this has any hemodynamic significance or should be in any way addressed. PAST MEDICAL HISTORY 1. Coronary artery disease, 2. Ischemic left occipital stroke 3. Atrial fibrillation 4. Chronic obstructive pulmonary disease 5. Hypertension, 6. Hyperlipidemia 7. Above-noted brain concussion. PAST SURGICAL HISTORY 1. Pacemaker placement, 2. Coronary artery bypass surgery ALLERGIES No allergies. SOCIAL HISTORY The patient quit smoking about two years ago. He was a heavy smoker most of his adult life. He drinks socially. PHYSICAL EXAMINATION GENERAL: A 56-year-old male no acute distress. HEENT: Normocephalic. No trauma to the head. Pupils equally reactive. Extraocular muscles intact. NECK: Supple. Bilateral carotid pulses. No bruits. HEART: Actually the patient is not in A. Fib. He is in a sinus rhythm right now. ABDOMEN: Soft. Active bowel sounds. No rebound or guarding. EXTREMITIES: The patient has bilateral femoral, popliteal, dorsalis pedis, posterior tibial pulses and all of them are palpated. No signs of acute vascular deficit. Capillary refill is normal. NEUROLOGIC: The patient seems to be symmetric without any lateralization. IMPRESSION AND RECOMMENDATIONS This gentleman has left occipital infarct but no other abnormalities. I reviewed the carotid studies. CTA of the neck does not reveal hemodynamically significant stenosis of either carotid and the internal carotid arteries distally by the ___ and the sub basilar area. There are small aneurysms, 5 mm and the left, 3 mm on the right. These are asymptomatic, non consequential and should not be touched. There is no need to coil or do anything else with this. It should be left alone. I thank you much for referral. Abhay SANTIAGO/ /4:51 PM /5:01 PM
--- NOTE | 2017-01-10 22:03 | HHI.PR ---
Subjective Remarks deferred entry - patient seen at 5 PM Patient states headache is improving denies fevers/chills denies cp/sob Objective Vitals Vital Signs Date Time Temp Pulse Resp B/P Pulse Ox O2 Delivery O2 Flow Rate FiO2 01/10/17 20:09 94 Nasal Cannula 2.00 01/10/17 16:03 97.1 76 18 112/60 94 01/10/17 16:00 Room Air 01/10/17 12:03 97.4 75 20 109/61 92 01/10/17 12:00 Room Air 01/10/17 09:10 70 16 107/65 01/10/17 08:10 Room Air 01/10/17 08:03 97.6 89 20 106/61 92 01/10/17 07:59 91 01/10/17 05:07 97.2 84 18 112/72 93 01/09/17 23:50 97.4 73 18 115/69 93 I/O 01/09/17 01/09/17 01/09/17 01/10/17 01/10/17 01/10/17 07:00 15:00 23:00 07:00 15:00 23:00 Intake Total 240 ml 600 ml 240 ml 240 ml 482 ml Output Total 475 ml 250 ml 575 ml 1000 ml Balance 240 ml 125 ml -10 ml -335 ml -518 ml Intake Oral 240 ml 600 ml 240 ml 240 ml 480 ml IV Total 0 ml 2 ml Output Urine Total 475 ml 250 ml 575 ml 1000 ml # Voids 1 # Bowel Movements 0 0 1 0 1 Result Diagram: 01/10/17 0513 01/10/17 0513 Imaging Last Impressions Neck CTA 01/09/17 0000 Signed Impressions: Service Date/Time: Monday, January 09, 2017 10:54 - CONCLUSION: 1. 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 2. 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 3. Atherosclerotic plaquing at the carotid bifurcations. No hemodynamically significant carotid artery stenosis is identified. 4. COPD changes in the lung apices. Castillo Garibay MD Head CT 01/03/17 1531 Signed Impressions: Service Date/Time: Tuesday, January 03, 2017 15:49 - CONCLUSION: 1. Evolving left occipital infarct. 2. No acute intracranial abnormality. Vasu Gil MD Chest X-Ray 01/03/17 1531 Signed Impressions: Service Date/Time: Tuesday, January 03, 2017 15:46 - CONCLUSION: The lungs are clear. Harley Perry MD Objective Remarks GENERAL: This is a well-nourished, well-developed patient, in moderate distress. SKIN: No rashes, ecchymoses or lesions. Cool and dry. HEAD: Atraumatic. Normocephalic. No temporal or scalp tenderness. EYES: Pupils equal round and reactive. Extraocular motions intact. No scleral icterus. No injection or drainage. ENT: Nose without bleeding, purulent drainage or septal hematoma. Airway patent. NECK: Trachea midline. No JVD or lymphadenopathy. Supple, nontender, no meningeal signs. CARDIOVASCULAR: Regular rate and rhythm without murmurs, gallops, or rubs. RESPIRATORY: Decreased breath sounds bilaterally. The bilateral expiratory wheezing previously heard has resolved. No crackles or rhonchi auscultated. GASTROINTESTINAL: Abdomen soft, non-tender, nondistended. No hepato-splenomegaly , or palpable masses. No guarding. MUSCULOSKELETAL: Extremities without clubbing, cyanosis, or edema. No joint tenderness, effusion, or edema noted. No calf tenderness. NEUROLOGICAL: Awake and alert. Cranial nerves II through XII intact. Motor and sensory grossly within normal limits. Five out of 5 muscle strength in all muscle groups. Normal Medications and IVs Current Medications Medications (Trade) Dose Ordered Sig/Leticia Route Start Time Stop Time Status Last Admin (NS Flush) 2 ml UNSCH PRN IV FLUSH 01/03/17 18:00 (NS Flush) 2 ml BID IV FLUSH 01/03/17 21:00 01/10/17 09:15 (Zofran Inj) 4 mg Q6H PRN IVP 01/03/17 18:00 (Narcan Inj) 0.4 mg UNSCH PRN IV 01/03/17 18:00 (Aslly-Colace) 1 tab BID PO 01/03/17 21:00 01/10/17 09:14 (Milk Of Magnesia Liq) 30 ml Q12H PRN PO 01/03/17 18:00 (Senokot) 17.2 mg Q12H PRN PO 01/03/17 18:00 (Dulcolax Supp) 10 mg DAILY PRN RECTAL 01/03/17 18:00 (Lactulose Liq) 30 ml DAILY PRN PO 01/03/17 18:00 (Morphine Inj) 1 mg Q4HR PRN IV PUSH 01/03/17 18:00 (Nitroglycerin 2% Oint) 0.5 inch Q6HR PRN TOPICAL 01/03/17 18:00 (Fioricet 325-50-40) 1 tab Q8H PRN PO 01/03/17 18:30 01/10/17 09:14 (Ecotrin Ec) 81 mg HS PO 01/03/17 21:00 01/09/17 22:54 (Symbicort 160-4.5 Inh) 2 puff Q12HR INH 01/03/17 21:00 01/10/17 09:15 (Vitamin D3) 1,000 units DAILY PO 01/04/17 09:00 01/10/17 09:14 (Lasix) 20 mg DAILY PO 01/04/17 09:00 01/10/17 09:14 Prednisone 5 mg 5 mg DAILY PO 01/04/17 09:00 Hold 01/09/17 09:11 (Coumadin Consult Pharmacy) 0 ml @ 0 mls/hr UNSCH OTHER 01/07/17 09:30 (Coumadin) 5 mg DAILY@16 PO 01/08/17 20:00 01/10/17 15:38 Sumatriptan Succinate 6 mg 6 mg UNSCH PRN SQ 01/08/17 20:15 (Levaquin 750 Mg Premix Inj) 150 ml @ 100 mls/hr Q24H IV 01/08/17 21:00 01/09/17 22:48 (SoluMEDROL INJ) 40 mg Q12H IV PUSH 01/10/17 00:00 01/10/17 12:16 (Coumadin) 2.5 mg ONCE PO 01/10/17 16:00 01/10/17 23:59 A/P Problem List: (1) Headache ICD Code: R51 Status: Acute Plan: Evolving left occipital infarct. No acute intracranial abnormality Likely secondary to evolving ischemic CVA, migraine headaches also possible. Continue pain control with Fioricet. Neurology consulted on following Patient had partial response to Imitrex. 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 Atherosclerotic plaquing at the carotid bifurcations. No hemodynamically significant carotid stenosis identified. COPD changes are observed in the lung apices. Vascular surgery consulted (2) Elevated troponin I level ICD Code: R74.8 Status: Acute Plan: Elevated troponin, Troponin .10, admitted on 11/01, baseline troponin .10 however trops did go up to 0.38 then down to 0.24 EKG shows a paced rhythm -Dr. Germain evaluated the patient and recommends pt being on anticoagulation, no intervention at this time. (3) Atrial fibrillation ICD Code: I48.91 Status: Acute Plan: EKG on admission reviewed by me showed paced rhythm. Continue Coumadin, Harley consulted to help with dosing. Monitor PT/INR (4) CVA (cerebral vascular accident) ICD Code: I63.9 Status: Chronic Plan: As mentioned above on CT scan of the head. Patient has an evolving left occipital infarct. Continue aspirin fu neurology recommendations (5) COPD with exacerbation ICD Code: J44.1 Status: Acute Plan: Patient has history of COPD. Shortness of breath and cough improving. Tapered dose of IV Solu-Medrol to 40 mg IV every 12 hours. Continue IV Levaquin. Continue supplemental oxygen to keep on oxygen saturation more than 92%. (6) Leukocytosis ICD Code: D72.829 Status: Acute Plan: Likely due to steroids. Patient is afebrile. Monitor WBC. (7) Hyperglycemia ICD Code: R73.9 Status: Acute Plan: steroid induced hyperglycemia. Hemoglobin A1c 5.6. Diabetes ruled out. Blood sugars stable. Blood sugars should come down as the dose of steoids id tapered. Assessment and Plan DVT prophylaxis: SCD's, Will start on Lovenox SQ until INR therapeutic. Discharge Planning Continue to monitor in the medical floor. Neurology consulted. Patient still with severe headaches. Problem Qualifiers (1) Headache: (2) Atrial fibrillation: Qualified Code: I48.2 - Chronic atrial fibrillation (3) CVA (cerebral vascular accident): Qualified Code: I63.9 - Cerebrovascular accident (CVA), unspecified mechanism Elliott Baez MD Jan 10, 2017 22:03
[2017-01-10] MEDS: LEVOFLOXACIN 750 MG PREMIX INJ 150 ML IV SCH (22:34)
[2017-01-10] MEDS: ASPIRIN EC 81 MG TABEC PO SCH (22:38)
[2017-01-10] MEDS: ENOXAPARIN SODIUM 40 MG/0.4 ML SYRINGE SQ SCH (22:39)
[2017-01-11] VITALS (7 sets, daily range): BP systolic 101–114; BP diastolic 61–70; PULSE 69–81; RESP 18–20; TEMP 97.1–98; O2SAT 91–94
[2017-01-11] MEDS: ACETAMIN 325 MG/BUTALBITAL 50 MG/CAFFEINE 40 MG TAB PO PRN ×2 (06:46→23:24)
[2017-01-11] MEDS: predniSONE 20 MG TAB PO SCH ×2 (09:00→22:02)
[2017-01-11 09:58] LABS: INTERNATIONAL NORMALIZED RATIO 1.2 RATIO; PROTHROMBIN TIME - PATIENT 13.7 SEC (9.8-11.6)
[2017-01-11] MEDS: BUDESONIDE-FORMOTEROL 160/4.5 MCG INHALER INH SCH ×2 (10:07→22:02)
[2017-01-11] MEDS: CHOLECALCIFEROL (VIT D3) 1000 UNIT TAB PO SCH (10:07)
[2017-01-11] MEDS: FUROSEMIDE 20 MG TAB PO SCH (10:08)
[2017-01-11] MEDS: SODIUM CHLORIDE 0.9% FLUSH 10 ML FLUSH IV FLUSH SCH ×2 (10:09→21:00)
[2017-01-11] MEDS: DOCUSATE SODIUM 50 MG/SENNA 8.6 MG TAB PO SCH ×2 (10:09→22:02)
[2017-01-11] MEDS: WARFARIN SOD 5 MG TAB PO SCH (15:19)
[2017-01-11] MEDS ORDERED: WARFARIN SOD 5 MG TAB PO SCH (16:00)
[2017-01-11] MEDS ORDERED: BUTATAB6 PO (18:13)
[2017-01-11] MEDS ORDERED: TIOT1AER2 INH (18:13)
[2017-01-11] MEDS ORDERED: PRED20 PO (18:13)
[2017-01-11] MEDS ORDERED: LEVO500T8 PO (18:13)
--- NOTE | 2017-01-11 18:15 | HHI.DCPOC ---
Discharge Care Plan Diagnosis: (1) Headache (2) Elevated troponin I level (3) CVA (cerebral vascular accident) (4) COPD with exacerbation (5) Hyperglycemia (6) Leukocytosis Goals to Promote Your Health * To prevent worsening of your condition and complications * To maintain your health at the optimal level Directions to Meet Your Goals Take your medications as prescribed Follow your dietary instruction Follow activity as directed Keep your appointments as scheduled Take your immunizations and boosters as scheduled If your symptoms worsen call your PCP, if no PCP go to Urgent Care Center or Emergency Room Smoking is Dangerous to Your Health. Avoid second hand smoke Call the 24-hour hour crisis hotline for domestic abuse at Elliott Baez MD Jan 11, 2017 18:15
--- NOTE | 2017-01-11 18:19 | HHI.PR ---
Subjective Remarks Patient states that headache is much improved, 3/10 intensity Denies chest pain or SOB Objective Vitals Vital Signs Date Time Temp Pulse Resp B/P Pulse Ox O2 Delivery O2 Flow Rate FiO2 01/11/17 16:10 97.5 74 20 110/61 93 01/11/17 12:02 97.7 74 18 104/64 94 01/11/17 08:10 Room Air 01/11/17 08:04 98.0 70 18 107/66 93 01/11/17 05:08 97.6 70 18 114/70 93 01/11/17 00:23 97.2 69 18 106/64 93 01/10/17 21:18 97.6 67 18 114/68 92 01/10/17 20:09 94 Nasal Cannula 2.00 01/10/17 20:00 83 01/10/17 20:00 Room Air I/O 01/10/17 01/10/17 01/10/17 01/11/17 01/11/17 01/11/17 07:00 15:00 23:00 07:00 15:00 23:00 Intake Total 240 ml 482 ml 480 ml 360 ml 722 ml Output Total 575 ml 1000 ml 700 ml 750 ml Balance -335 ml -518 ml 480 ml -340 ml -28 ml Intake Oral 240 ml 480 ml 480 ml 360 ml 720 ml IV Total 2 ml 2 ml Output Urine Total 575 ml 1000 ml 700 ml 750 ml # Voids 2 # Bowel Movements 0 1 1 1 1 Result Diagram: 01/10/17 0513 01/10/17 0513 Imaging Last Impressions Neck CTA 01/09/17 0000 Signed Impressions: Service Date/Time: Monday, January 09, 2017 10:54 - CONCLUSION: 1. 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 2. 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 3. Atherosclerotic plaquing at the carotid bifurcations. No hemodynamically significant carotid artery stenosis is identified. 4. COPD changes in the lung apices. Castillo Garibay MD Head CT 01/03/17 1531 Signed Impressions: Service Date/Time: Tuesday, January 03, 2017 15:49 - CONCLUSION: 1. Evolving left occipital infarct. 2. No acute intracranial abnormality. Vasu Gil MD Chest X-Ray 01/03/17 1531 Signed Impressions: Service Date/Time: Tuesday, January 03, 2017 15:46 - CONCLUSION: The lungs are clear. Harley Perry MD Objective Remarks GENERAL: This is a well-nourished, well-developed patient, in moderate distress. SKIN: No rashes, ecchymoses or lesions. Cool and dry. HEAD: Atraumatic. Normocephalic. No temporal or scalp tenderness. EYES: Pupils equal round and reactive. Extraocular motions intact. No scleral icterus. No injection or drainage. ENT: Nose without bleeding, purulent drainage or septal hematoma. Airway patent. NECK: Trachea midline. No JVD or lymphadenopathy. Supple, nontender, no meningeal signs. CARDIOVASCULAR: Regular rate and rhythm without murmurs, gallops, or rubs. RESPIRATORY: Decreased breath sounds bilaterally. The bilateral expiratory wheezing previously heard has resolved. No crackles or rhonchi auscultated. GASTROINTESTINAL: Abdomen soft, non-tender, nondistended. No hepato-splenomegaly , or palpable masses. No guarding. MUSCULOSKELETAL: Extremities without clubbing, cyanosis, or edema. No joint tenderness, effusion, or edema noted. No calf tenderness. NEUROLOGICAL: Awake and alert. Cranial nerves II through XII intact. Motor and sensory grossly within normal limits. Five out of 5 muscle strength in all muscle groups. Normal Medications and IVs Current Medications Medications (Trade) Dose Ordered Sig/Leticia Route Start Time Stop Time Status Last Admin (NS Flush) 2 ml UNSCH PRN IV FLUSH 01/03/17 18:00 (NS Flush) 2 ml BID IV FLUSH 01/03/17 21:00 01/11/17 10:09 (Zofran Inj) 4 mg Q6H PRN IVP 01/03/17 18:00 (Narcan Inj) 0.4 mg UNSCH PRN IV 01/03/17 18:00 (Sally-Colace) 1 tab BID PO 01/03/17 21:00 01/11/17 10:09 (Milk Of Magnesia Liq) 30 ml Q12H PRN PO 01/03/17 18:00 (Senokot) 17.2 mg Q12H PRN PO 01/03/17 18:00 (Dulcolax Supp) 10 mg DAILY PRN RECTAL 01/03/17 18:00 (Lactulose Liq) 30 ml DAILY PRN PO 01/03/17 18:00 (Morphine Inj) 1 mg Q4HR PRN IV PUSH 01/03/17 18:00 (Nitroglycerin 2% Oint) 0.5 inch Q6HR PRN TOPICAL 01/03/17 18:00 (Fioricet 325-50-40) 1 tab Q8H PRN PO 01/03/17 18:30 01/11/17 06:46 (Ecotrin Ec) 81 mg HS PO 01/03/17 21:00 01/10/17 22:38 (Symbicort 160-4.5 Inh) 2 puff Q12HR INH 01/03/17 21:00 01/11/17 10:07 (Vitamin D3) 1,000 units DAILY PO 01/04/17 09:00 01/11/17 10:07 (Lasix) 20 mg DAILY PO 01/04/17 09:00 01/11/17 10:08 Prednisone 5 mg 5 mg DAILY PO 01/04/17 09:00 Hold 01/09/17 09:11 (Coumadin Consult Pharmacy) 0 ml @ 0 mls/hr UNSCH OTHER 01/07/17 09:30 (Coumadin) 5 mg DAILY@16 PO 01/08/17 20:00 01/11/17 15:19 Sumatriptan Succinate 6 mg 6 mg UNSCH PRN SQ 01/08/17 20:15 (Levaquin 750 Mg Premix Inj) 150 ml @ 100 mls/hr Q24H IV 01/08/17 21:00 01/10/17 22:34 (Deltasone) 20 mg BID PO 01/11/17 09:00 01/11/17 09:00 (Lovenox Inj) 40 mg Q24H SQ 01/10/17 22:00 01/10/17 22:39 (Coumadin) 5 mg ONCE PO 01/11/17 16:00 01/11/17 23:59 A/P Problem List: (1) Headache ICD Code: R51 Status: Acute Plan: Evolving left occipital infarct. No acute intracranial abnormality Likely secondary to evolving ischemic CVA, migraine headaches also possible. Continue pain control with Fioricet. Neurology consulted on following Patient had partial response to Imitrex. 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 Atherosclerotic plaquing at the carotid bifurcations. No hemodynamically significant carotid stenosis identified. COPD changes are observed in the lung apices. Vascular surgery consulted - no surgical intervention necessary. (2) Elevated troponin I level ICD Code: R74.8 Status: Acute Plan: Elevated troponin, Troponin .10, admitted on 11/01, baseline troponin .10 however trops did go up to 0.38 then down to 0.24 EKG shows a paced rhythm -Dr. Germain evaluated the patient and recommends pt being on anticoagulation, no intervention at this time. (3) Atrial fibrillation ICD Code: I48.91 Status: Acute Plan: EKG on admission reviewed by me showed paced rhythm. Continue Coumadin, Pharmacy consulted to help with dosing. Monitor PT/INR 01/11 I will discuss with . I'll see from neurology the possibility of switching the patient to Xarelto. (4) CVA (cerebral vascular accident) ICD Code: I63.9 Status: Chronic Plan: As mentioned above on CT scan of the head. Patient has an evolving left occipital infarct. Continue aspirin fu neurology recommendations (5) COPD with exacerbation ICD Code: J44.1 Status: Acute Plan: Patient has history of COPD. Shortness of breath and cough improving almost resolved. . DC IV Levaquin and switch to PO Continue prednisone Continue supplemental oxygen to keep on oxygen saturation more than 92% (6) Leukocytosis ICD Code: D72.829 Status: Acute Plan: Likely due to steroids. Patient is afebrile. Monitor WBC. (7) Hyperglycemia ICD Code: R73.9 Status: Acute Plan: steroid induced hyperglycemia. Hemoglobin A1c 5.6. Diabetes ruled out. Blood sugars stable. Blood sugars should come down as the dose of steoids id tapered. Assessment and Plan DVT prophylaxis: SCD's, Will start on Lovenox SQ Discharge Planning Will discuss with neurology the possibility of placing the patient on Xarelto. Called Dr Castillo and left message on answering service but did not get a call back. Problem Qualifiers (1) Headache: (2) Atrial fibrillation: Qualified Code: I48.2 - Chronic atrial fibrillation (3) CVA (cerebral vascular accident): Qualified Code: I63.9 - Cerebrovascular accident (CVA), unspecified mechanism Elliott Baez MD Jan 11, 2017 18:19
[2017-01-11] MEDS: ENOXAPARIN SODIUM 40 MG/0.4 ML SYRINGE SQ SCH (22:02)
[2017-01-11] MEDS: ASPIRIN EC 81 MG TABEC PO SCH (22:02)
[2017-01-11] MEDS ORDERED: LEVOFLOXACIN 750 MG PREMIX INJ 150 ML IV SCH (22:15)
[2017-01-12] VITALS (10 sets, daily range): BP systolic 97–121; BP diastolic 62–74; PULSE 67–87; RESP 18–22; TEMP 97.3–97.7; O2SAT 91–95
[2017-01-12 07:27] LABS: INTERNATIONAL NORMALIZED RATIO 1.2 RATIO; PROTHROMBIN TIME - PATIENT 13.5 SEC (9.8-11.6)
[2017-01-12] MEDS: DOCUSATE SODIUM 50 MG/SENNA 8.6 MG TAB PO SCH ×3 (08:48→20:24)
[2017-01-12] MEDS: predniSONE 20 MG TAB PO SCH ×3 (08:48→20:23)
[2017-01-12] MEDS: FUROSEMIDE 20 MG TAB PO SCH ×2 (08:49→10:11)
[2017-01-12] MEDS: LEVOFLOXACIN 500 MG TAB PO SCH ×2 (08:49→10:11)
[2017-01-12] MEDS: CHOLECALCIFEROL (VIT D3) 1000 UNIT TAB PO SCH ×2 (08:49→10:11)
[2017-01-12] MEDS: BUDESONIDE-FORMOTEROL 160/4.5 MCG INHALER INH SCH ×2 (08:58→20:26)
[2017-01-12] MEDS: SODIUM CHLORIDE 0.9% FLUSH 10 ML FLUSH IV FLUSH SCH ×2 (09:00→20:23)
[2017-01-12] MEDS: ACETAMIN 325 MG/BUTALBITAL 50 MG/CAFFEINE 40 MG TAB PO PRN ×2 (09:08→17:11)
--- NOTE | 2017-01-12 09:10 | HHI.PR ---
Review/Management Diagnosis 1. Remote left occipital stroke. 2. Hypertension. 3. Hyperlipidemia. 4. A-fib s/p pacemaker on Coumadin. 5. Chronic headache. 6. B/L ICA aneurysm Plan - Stable neurologic exam - No acute neurologic findings on neurologic tests - Continue aspirin 81 mg. - Continue Coumadin 5 mg daily and follow up INR. - Follow up with neurology outpatient - Please call for questions Diagnosis/Plan: Subjective Subjective Comments No acute events reported Very mild headache CTA neck revealed two aneurysms, not for surgical intervention as per vascular surgery HCT w/o contrast revealed a remote left occipital infarct Active Medications Current Medications Medications (Trade) Dose Ordered Sig/Leticia Route Start Time Stop Time Status Last Admin (NS Flush) 2 ml UNSCH PRN IV FLUSH 01/03/17 18:00 (NS Flush) 2 ml BID IV FLUSH 01/03/17 21:00 01/11/17 21:00 (Zofran Inj) 4 mg Q6H PRN IVP 01/03/17 18:00 (Narcan Inj) 0.4 mg UNSCH PRN IV 01/03/17 18:00 (Sally-Colace) 1 tab BID PO 01/03/17 21:00 01/12/17 08:48 (Milk Of Magnesia Liq) 30 ml Q12H PRN PO 01/03/17 18:00 (Senokot) 17.2 mg Q12H PRN PO 01/03/17 18:00 (Dulcolax Supp) 10 mg DAILY PRN RECTAL 01/03/17 18:00 (Lactulose Liq) 30 ml DAILY PRN PO 01/03/17 18:00 (Morphine Inj) 1 mg Q4HR PRN IV PUSH 01/03/17 18:00 (Nitroglycerin 2% Oint) 0.5 inch Q6HR PRN TOPICAL 01/03/17 18:00 (Fioricet 325-50-40) 1 tab Q8H PRN PO 01/03/17 18:30 01/11/17 23:24 (Ecotrin Ec) 81 mg HS PO 01/03/17 21:00 01/11/17 22:02 (Symbicort 160-4.5 Inh) 2 puff Q12HR INH 01/03/17 21:00 01/11/17 22:02 (Vitamin D3) 1,000 units DAILY PO 01/04/17 09:00 01/12/17 08:49 (Lasix) 20 mg DAILY PO 01/04/17 09:00 01/12/17 08:49 Prednisone 5 mg 5 mg DAILY PO 01/04/17 09:00 Hold 01/09/17 09:11 (Coumadin Consult Pharmacy) 0 ml @ 0 mls/hr UNSCH OTHER 01/07/17 09:30 (Coumadin) 5 mg DAILY@16 PO 01/08/17 20:00 01/11/17 15:19 (Imitrex Inj) 6 mg UNSCH PRN SQ 01/08/17 20:15 (Deltasone) 20 mg BID PO 01/11/17 09:00 01/12/17 08:48 (Lovenox Inj) 40 mg Q24H SQ 01/10/17 22:00 01/11/17 22:02 (Levaquin) 500 mg DAILY PO 01/12/17 09:00 01/12/17 08:49 (Coumadin) 5 mg ONCE PO 01/12/17 16:00 01/12/17 23:59 Allergies Allergies Coded Allergies MRI PRECAUTION (Verified Adverse Reaction, Severe, NON COMPATIBLE PACEMAKER LRS, 11/01/16) Exam I&O / VS 01/11/17 01/11/17 01/12/17 15:00 23:00 07:00 Intake Total 722 ml 480 ml 418 ml Output Total 750 ml Balance -28 ml 480 ml 418 ml Intake Oral 720 ml 480 ml 360 ml IV Total 2 ml 58 ml Output Urine Total 750 ml # Voids 2 4 # Bowel Movements 1 0 Vital Signs Date Time Temp Pulse Resp B/P Pulse Ox O2 Delivery O2 Flow Rate FiO2 01/12/17 04:42 97.6 74 18 116/69 91 01/12/17 01:10 97.3 69 18 121/73 92 01/12/17 01:03 18 01/11/17 22:05 Room Air 01/11/17 21:00 97.1 81 20 101/64 91 01/11/17 16:10 97.5 74 20 110/61 93 01/11/17 16:00 Room Air 01/11/17 12:02 97.7 74 18 104/64 94 01/11/17 12:00 Room Air Exam Comments GENERAL: Awake, alert, sits on a chair, not in acute distress. HEENT: Atraumatic, normocephalic. Intact vision. Intact hearing. Right visual field cut. NECK: No carotid bruits. No signs of meningeal irritation. CARDIOVASCULAR: Regular rate and rhythm. RESPIRATORY: Clear to auscultation. No wheezes. GASTROINTESTINAL: Soft abdomen. MUSCULOSKELETAL: No clubbing, cyanosis or edema. NEUROLOGICAL: Awake, alert, oriented to time, person and place. Intact memory , intact speech. No dysarthria. No dysphasia. Right visual field cut/chronic secondary to the previous left occipital stroke. No nystagmus. Intact external ocular motility. grade 5/5 throughout bilateral upper and lower extremities with occasional give-away intact sensation to light touch and temperature bilateral and symmetrical. Reflexes 2+ bilateral and symmetrical. Plantars are bilaterally downgoing. Objective Micro and Labs Laboratory Tests Test 01/12/17 06:55 Prothrombin Time 13.5 Prothromb Time International 1.2 Ratio Serge Castillo MD Jan 12, 2017 09:10
--- NOTE | 2017-01-12 10:12 | HHI.PR ---
Subjective Remarks Patient denies headache denies cp/sob no new neuro deficits Vital signs Objective Vitals Vital Signs Date Time Temp Pulse Resp B/P Pulse Ox O2 Delivery O2 Flow Rate FiO2 01/12/17 09:08 Room Air 2.00 01/12/17 08:00 97.7 67 22 107/62 92 01/12/17 04:42 97.6 74 18 116/69 91 01/12/17 01:10 97.3 69 18 121/73 92 01/12/17 01:03 18 01/11/17 22:05 Room Air 01/11/17 21:00 97.1 81 20 101/64 91 01/11/17 16:10 97.5 74 20 110/61 93 01/11/17 16:00 Room Air 01/11/17 12:02 97.7 74 18 104/64 94 01/11/17 12:00 Room Air I/O 01/11/17 01/11/17 01/11/17 01/12/17 01/12/17 01/12/17 07:00 15:00 23:00 07:00 15:00 23:00 Intake Total 360 ml 722 ml 480 ml 418 ml Output Total 700 ml 750 ml Balance -340 ml -28 ml 480 ml 418 ml Intake Oral 360 ml 720 ml 480 ml 360 ml IV Total 2 ml 58 ml Output Urine Total 700 ml 750 ml # Voids 2 4 # Bowel Movements 1 1 0 Result Diagram: 01/10/17 0513 01/10/17 0513 Imaging Last Impressions Neck CTA 01/09/17 0000 Signed Impressions: Service Date/Time: Monday, January 09, 2017 10:54 - CONCLUSION: 1. 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 2. 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 3. Atherosclerotic plaquing at the carotid bifurcations. No hemodynamically significant carotid artery stenosis is identified. 4. COPD changes in the lung apices. Castillo Garibay MD Head CT 01/03/171 Signed Impressions: Service Date/Time: Tuesday, January 03, 2017 15:49 - CONCLUSION: 1. Evolving left occipital infarct. 2. No acute intracranial abnormality. Vasu Gil MD Chest X-Ray 01/03/171530 Signed Impressions: Service Date/Time: Tuesday, January 03, 2017 15:46 - CONCLUSION: The lungs are clear. Harley Perry MD Objective Remarks GENERAL: This is a well-nourished, well-developed patient, NAD SKIN: No rashes, ecchymoses or lesions. Cool and dry. HEAD: Atraumatic. Normocephalic. No temporal or scalp tenderness. EYES: Pupils equal round and reactive. Extraocular motions intact. No scleral icterus. No injection or drainage. ENT: Nose without bleeding, purulent drainage or septal hematoma. Airway patent. NECK: Trachea midline. No JVD or lymphadenopathy. Supple, nontender, no meningeal signs. CARDIOVASCULAR: Regular rate and rhythm without murmurs, gallops, or rubs. RESPIRATORY: Decreased breath sounds bilaterally. The bilateral expiratory wheezing previously heard has resolved. No crackles or rhonchi auscultated. GASTROINTESTINAL: Abdomen soft, non-tender, nondistended. No hepato-splenomegaly , or palpable masses. No guarding. MUSCULOSKELETAL: Extremities without clubbing, cyanosis, or edema. No joint tenderness, effusion, or edema noted. No calf tenderness. NEUROLOGICAL: Awake and alert. Cranial nerves II through XII intact. Motor and sensory grossly within normal limits. Five out of 5 muscle strength in all muscle groups. Normal Procedures none Medications and IVs Current Medications Medications (Trade) Dose Ordered Sig/Leticia Route Start Time Stop Time Status Last Admin (NS Flush) 2 ml UNSCH PRN IV FLUSH 01/03/17 18:00 (NS Flush) 2 ml BID IV FLUSH 01/03/17 21:00 01/11/17 21:00 (Zofran Inj) 4 mg Q6H PRN IVP 01/03/17 18:00 (Narcan Inj) 0.4 mg UNSCH PRN IV 01/03/17 18:00 (Sally-Colace) 1 tab BID PO 01/03/17 21:00 01/12/17 10:12 (Milk Of Magnesia Liq) 30 ml Q12H PRN PO 01/03/17 18:00 (Senokot) 17.2 mg Q12H PRN PO 01/03/17 18:00 (Dulcolax Supp) 10 mg DAILY PRN RECTAL 01/03/17 18:00 (Lactulose Liq) 30 ml DAILY PRN PO 01/03/17 18:00 (Morphine Inj) 1 mg Q4HR PRN IV PUSH 01/03/17 18:00 (Nitroglycerin 2% Oint) 0.5 inch Q6HR PRN TOPICAL 01/03/17 18:00 (Fioricet 325-50-40) 1 tab Q8H PRN PO 01/03/17 18:30 01/12/17 09:08 (Ecotrin Ec) 81 mg HS PO 01/03/17 21:00 01/11/17 22:02 (Symbicort 160-4.5 Inh) 2 puff Q12HR INH 01/03/17 21:00 01/12/17 08:58 (Vitamin D3) 1,000 units DAILY PO 01/04/17 09:00 01/12/17 10:11 (Lasix) 20 mg DAILY PO 01/04/17 09:00 01/12/17 10:11 Prednisone 5 mg 5 mg DAILY PO 01/04/17 09:00 Hold 01/09/17 09:11 (Coumadin Consult Pharmacy) 0 ml @ 0 mls/hr UNSCH OTHER 01/07/17 09:30 (Coumadin) 5 mg DAILY@16 PO 01/08/17 20:00 01/11/17 15:19 (Imitrex Inj) 6 mg UNSCH PRN SQ 01/08/17 20:15 (Deltasone) 20 mg BID PO 01/11/17 09:00 01/12/17 10:10 (Lovenox Inj) 40 mg Q24H SQ 01/10/17 22:00 01/11/17 22:02 (Levaquin) 500 mg DAILY PO 01/12/17 09:00 01/12/17 10:11 (Coumadin) 5 mg ONCE PO 01/12/17 16:00 01/12/17 23:59 Urinary Catheter: No Vascular Central Line Catheter: No A/P Problem List: (1) Headache ICD Code: R51 Status: Acute Plan: 66-year-old male who presented to [facility] complaining of severe and persistent headaches Evolving left occipital infarct. No acute intracranial abnormality Likely secondary to evolving ischemic CVA, migraine headaches also possible. Continue pain control with Fioricet. Neurology consulted on following Patient had partial response to Imitrex. 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 Atherosclerotic plaquing at the carotid bifurcations. No hemodynamically significant carotid stenosis identified. COPD changes are observed in the lung apices. Vascular surgery consulted - no surgical intervention necessary. 01/12 Headache is much improved. Continue pain control with Fioricet. Patient has been cleared by neurology discharged. Patient will be able to discharge once his INR is more than 2. (2) Elevated troponin I level ICD Code: R74.8 Status: Acute Plan: Elevated troponin, Troponin .10, admitted on 11/01, baseline troponin .10 however trops did go up to 0.38 then down to 0.24 EKG shows a paced rhythm -Dr. Germain evaluated the patient and recommends pt being on anticoagulation, no intervention at this time. Elevated troponins thought to be secondary to evolving CVA. e. (3) Atrial fibrillation ICD Code: I48.91 Status: Acute Plan: EKG on admission reviewed by me showed paced rhythm. Continue Coumadin, Pharmacy consulted to help with dosing. Monitor PT/INR 01/12 I do not think Coumadin is the best medication for this gentleman. The patient lives alone, seems to have difficulties to understand and follow directions. I spent over 30 minutes to him just discussing medication side effects, he seems to have difficulty understanding this and especially understanding that Coumadin will need to be monitored frequently and that the dose will need to be adjusted. I offered to him that time if of colon into Xarelto or Eliquis if Dr. Castillo would agree to this. However the patient refused and states he wants to continue with Coumadin because these other medications have other side effects including and could also cause diabetes. The patient's INR is subtherapeutic at 1.2. Continue with Coumadin and will keep the patient hospitalized until the INR is more than 2. (4) CVA (cerebral vascular accident) ICD Code: I63.9 Status: Chronic Plan: As mentioned above on CT scan of the head. Patient has an evolving left occipital infarct. Continue aspirin fu neurology recommendations (5) COPD with exacerbation ICD Code: J44.1 Status: Acute Plan: Patient has history of COPD. patient was found to be wheezing. Was treated with IV steroids and IV Levaquin. These were discontinued and changed to oral. Continue with oral Levaquin and oral prednisone taper. Patient seems to have a borderline saturation on room air. I will order a story home test to assess if the patient will need home O2 upon discharge. Continue supplemental oxygen and bronchodilators. (6) Leukocytosis ICD Code: D72.829 Status: Acute Plan: Likely due to steroids. Patient is afebrile. Monitor WBC. (7) Hyperglycemia ICD Code: R73.9 Status: Acute Plan: steroid induced hyperglycemia. Hemoglobin A1c 5.6. Diabetes ruled out. Blood sugars stable. Blood sugars should come down as the dose of steroids is tapered. Assessment and Plan DVT prophylaxis: SCD's, Will start on Lovenox SQ Spent 35 minutes [id number] with the patient on counseling and coordination of care explaining side effects of Coumadin, insulin to him that leaving the major side effect as with any other blood thinner. He seems to have some learning difficulties because he would ask the same question over and over again. I explained to him that probably Coumadin would not be the best medication for him and offered to transition him instead into Xarelto or Eliquis , however the patient refused to be started on any of this given that he has seen on TV that these could have many problems. Discharge Planning Patient refuses to go on one of the novel anticoagulants. Patient will be able to be discharge once his INR is more than 2. Problem Qualifiers (1) Headache: (2) Atrial fibrillation: Qualified Code: I48.2 - Chronic atrial fibrillation (3) CVA (cerebral vascular accident): Qualified Code: I63.9 - Cerebrovascular accident (CVA), unspecified mechanism (4) Leukocytosis: Qualified Code: D72.829 - Leukocytosis, unspecified type Elliott Baez MD Jan 12, 2017 10:12
[2017-01-12] MEDS ORDERED: WARFARIN SOD 5 MG TAB PO SCH (16:00)
[2017-01-12] MEDS: WARFARIN SOD 5 MG TAB PO SCH (16:36)
[2017-01-12] MEDS: ASPIRIN EC 81 MG TABEC PO SCH (20:23)
[2017-01-12] MEDS: ENOXAPARIN SODIUM 40 MG/0.4 ML SYRINGE SQ SCH (20:23)
[2017-01-13] VITALS (8 sets, daily range): BP systolic 106–129; BP diastolic 66–77; PULSE 71–87; RESP 18–20; TEMP 97.3–97.6; O2SAT 92–95
[2017-01-13 07:34] LABS: INTERNATIONAL NORMALIZED RATIO 1.3 RATIO; PROTHROMBIN TIME - PATIENT 14.3 SEC (9.8-11.6)
[2017-01-13] MEDS: predniSONE 20 MG TAB PO SCH ×2 (08:22→21:24)
[2017-01-13] MEDS: FUROSEMIDE 20 MG TAB PO SCH (08:23)
[2017-01-13] MEDS: CHOLECALCIFEROL (VIT D3) 1000 UNIT TAB PO SCH (08:23)
[2017-01-13] MEDS: LEVOFLOXACIN 500 MG TAB PO SCH (08:23)
[2017-01-13] MEDS: SODIUM CHLORIDE 0.9% FLUSH 10 ML FLUSH IV FLUSH SCH ×2 (08:23→21:25)
[2017-01-13] MEDS: BUDESONIDE-FORMOTEROL 160/4.5 MCG INHALER INH SCH ×2 (08:25→21:25)
--- NOTE | 2017-01-13 08:25 | HHI.PR ---
Subjective Remarks In bed. says he was not much dizzy today. No headache. No change in vision. He is ambulating with difficulty. No n/v/d/c. Objective Vitals Vital Signs Date Time Temp Pulse Resp B/P Pulse Ox O2 Delivery O2 Flow Rate FiO2 01/13/17 08:12 97.5 74 19 129/75 93 01/13/17 05:00 97.6 87 20 121/77 01/13/17 00:00 Nasal Cannula 3.00 01/12/17 20:58 92 Nasal Cannula 3.00 01/12/17 20:06 78 01/12/17 20:00 97.6 87 22 115/74 95 01/12/17 20:00 Nasal Cannula 2.00 01/12/17 16:00 Room Air 01/12/17 16:00 97.4 80 20 95 01/12/17 15:20 94 Nasal Cannula 3.00 01/12/17 12:00 97.7 80 20 97/71 93 01/12/17 12:00 Room Air 01/12/17 09:08 Room Air 2.00 I/O 01/12/17 01/12/17 01/12/17 01/13/17 01/13/17 01/13/17 07:00 15:00 23:00 07:00 15:00 23:00 Intake Total 418 ml 240 ml Output Total 300 ml Balance 418 ml -60 ml Intake Oral 360 ml 240 ml IV Total 58 ml Output Urine Total 300 ml # Voids 4 # Bowel Movements 0 0 Result Diagram: 01/10/17 0513 01/10/17 0513 Imaging Last Impressions Neck CTA 01/09/17 0000 Signed Impressions: Service Date/Time: Monday, January 09, 2017 10:54 - CONCLUSION: 1. 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 2. 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 3. Atherosclerotic plaquing at the carotid bifurcations. No hemodynamically significant carotid artery stenosis is identified. 4. COPD changes in the lung apices. Castillo Garibay MD Head CT 01/03/17 1531 Signed Impressions: Service Date/Time: Tuesday, January 03, 2017 15:49 - CONCLUSION: 1. Evolving left occipital infarct. 2. No acute intracranial abnormality. Vasu Gil MD Chest X-Ray 01/03/17 1531 Signed Impressions: Service Date/Time: Tuesday, January 03, 2017 15:46 - CONCLUSION: The lungs are clear. aHrley Perry MD Objective Remarks GENERAL: This is a well-nourished, well-developed patient, NAD NECK: Trachea midline. No JVD or lymphadenopathy. Supple, nontender, no meningeal signs. CARDIOVASCULAR: Regular rate and rhythm without murmurs, gallops, or rubs. RESPIRATORY: Decreased breath sounds bilaterally. No wheezing. No crackles or rhonchi auscultated. GASTROINTESTINAL: Abdomen soft, non-tender, nondistended. No hepato-splenomegaly , or palpable masses. No guarding. MUSCULOSKELETAL: Extremities without clubbing, cyanosis, or edema. No joint tenderness, effusion, or edema noted. No calf tenderness. NEUROLOGICAL: Awake and alert. Cranial nerves II through XII intact. Motor and sensory grossly within normal limits. Five out of 5 muscle strength in all muscle groups. Normal Procedures none A/P Problem List: (1) Headache ICD Code: R51 Status: Acute (2) Elevated troponin I level ICD Code: R74.8 Status: Acute (3) Atrial fibrillation ICD Code: I48.91 Status: Acute (4) CVA (cerebral vascular accident) ICD Code: I63.9 Status: Chronic (5) COPD with exacerbation ICD Code: J44.1 Status: Acute (6) Leukocytosis ICD Code: D72.829 Status: Acute (7) Hyperglycemia ICD Code: R73.9 Status: Acute Assessment and Plan 66-year-old male who presented to [facility] complaining of severe and persistent headaches Headache Evolving left occipital infarct. No acute intracranial abnormality Likely secondary to evolving ischemic CVA, migraine headaches also possible. Continue pain control with Fioricet. Neurology consulted on following Patient had partial response to Imitrex. 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 Atherosclerotic plaquing at the carotid bifurcations. No hemodynamically significant carotid stenosis identified. COPD changes are observed in the lung apices. Vascular surgery consulted - no surgical intervention necessary. 01/12 Headache is much improved. Continue pain control with Fioricet. Patient has been cleared by neurology discharged. Patient will be able to discharge once his INR is more than 2. Elevated troponin I level Elevated troponin, Troponin .10, admitted on 11/01, baseline troponin .10 however trops did go up to 0.38 then down to 0.24 EKG shows a paced rhythm -Dr. Germain evaluated the patient and recommends pt being on anticoagulation, no intervention at this time. Elevated troponins thought to be secondary to evolving CVA. Atrial fibrillation EKG on admission reviewed by me showed paced rhythm. Continue Coumadin, Pharmacy consulted to help with dosing. Monitor PT/INR 01/12 I do not think Coumadin is the best medication for this gentleman. The patient lives alone, seems to have difficulties to understand and follow directions. I spent over 30 minutes to him just discussing medication side effects, he seems to have difficulty understanding this and especially understanding that Coumadin will need to be monitored frequently and that the dose will need to be adjusted. I offered to him that time if of colon into Xarelto or Eliquis if Dr. Castillo would agree to this. However the patient refused and states he wants to continue with Coumadin because these other medications have other side effects including and could also cause diabetes. The patient's INR is subtherapeutic at 1.2. Continue with Coumadin and will keep the patient hospitalized until the INR is more than 2. CVA (cerebral vascular accident) As mentioned above on CT scan of the head. Patient has an evolving left occipital infarct. Continue aspirin fu neurology recommendations COPD with exacerbation Patient has history of COPD. patient was found to be wheezing. Was treated with IV steroids and IV Levaquin. These were discontinued and changed to oral. Continue with oral Levaquin and oral prednisone taper. Patient seems to have a borderline saturation on room air. I will order a story home test to assess if the patient will need home O2 upon discharge. Continue supplemental oxygen and bronchodilators. Leukocytosis Likely due to steroids. Patient is afebrile. Monitor WBC. Hyperglycemia steroid induced hyperglycemia. Hemoglobin A1c 5.6. Diabetes ruled out. Blood sugars stable. Blood sugars should come down as the dose of steroids is tapered. Assessment and Plan DVT prophylaxis: SCD's, Will start on Lovenox SQ Patient was counselled regarding anticoagulation choices. He wants Coumadin. Coumadin would not be the best medication for him and offered to transition him instead into Xarelto or Eliquis, however the patient refused to be started on any of this given that he has seen on TV that these could have many problems. Discharge Planning Patient refuses to go on one of the novel anticoagulants. Patient will be able to be discharge once his INR is more than 2. Discussed with the patient,nurse, Dr Castillo neurology. Problem Qualifiers (1) Headache: (2) Atrial fibrillation: Qualified Code: I48.2 - Chronic atrial fibrillation (3) CVA (cerebral vascular accident): Qualified Code: I63.9 - Cerebrovascular accident (CVA), unspecified mechanism (4) Leukocytosis: Qualified Code: D72.829 - Leukocytosis, unspecified type Esme Driver MD Jan 13, 2017 08:25 Problem Qualifiers (1) Headache: (2) Atrial fibrillation: Qualified Code: I48.2 - Chronic atrial fibrillation (3) CVA (cerebral vascular accident): Qualified Code: I63.9 - Cerebrovascular accident (CVA), unspecified mechanism (4) Leukocytosis: Qualified Code: D72.829 - Leukocytosis, unspecified type Esme Driver MD Jan 13, 2017 08:25
[2017-01-13] MEDS: DOCUSATE SODIUM 50 MG/SENNA 8.6 MG TAB PO SCH ×2 (08:27→21:25)
[2017-01-13] MEDS ORDERED: WARFARIN SOD 7.5 MG TAB PO SCH (16:00)
[2017-01-13] MEDS: WARFARIN SOD 5 MG TAB PO SCH (16:17)
[2017-01-13] MEDS: ASPIRIN EC 81 MG TABEC PO SCH (21:24)
[2017-01-13] MEDS: ENOXAPARIN SODIUM 40 MG/0.4 ML SYRINGE SQ SCH (21:25)
[2017-01-13] MEDS: ACETAMIN 325 MG/BUTALBITAL 50 MG/CAFFEINE 40 MG TAB PO PRN (21:30)
[2017-01-14] VITALS (8 sets, daily range): BP systolic 99–125; BP diastolic 65–76; PULSE 69–90; RESP 18–22; TEMP 97–98; O2SAT 93–96
[2017-01-14] MEDS: ACETAMIN 325 MG/BUTALBITAL 50 MG/CAFFEINE 40 MG TAB PO PRN ×2 (06:41→16:45)
[2017-01-14 08:05] LABS: INTERNATIONAL NORMALIZED RATIO 1.7 RATIO; PROTHROMBIN TIME - PATIENT 19.5 SEC (9.8-11.6)
[2017-01-14] MEDS: SODIUM CHLORIDE 0.9% FLUSH 10 ML FLUSH IV FLUSH SCH ×2 (08:29→21:16)
--- NOTE | 2017-01-14 09:35 | HHI.PR ---
Subjective Remarks Patient in bed. Says he has no pain at this time. Says he is coughing at times. using IS. No cp, sob. Able to ambulate with a walker. No dizziness. No headache. Says he has diarrhea. Objective Vitals Vital Signs Date Time Temp Pulse Resp B/P Pulse Ox O2 Delivery O2 Flow Rate FiO2 01/14/17 08:00 97.8 71 20 99/72 96 01/14/17 06:10 Room Air 01/14/17 05:17 97.4 69 18 110/68 93 01/14/17 00:17 97.4 76 18 125/76 93 01/14/17 00:00 Room Air 01/13/17 21:40 97.4 71 18 111/72 95 01/13/17 21:14 95 Nasal Cannula 3.00 01/13/17 20:00 78 01/13/17 20:00 Nasal Cannula 3.00 01/13/17 16:19 97.5 77 18 117/66 92 01/13/17 16:00 Room Air 01/13/17 12:20 97.3 85 18 106/67 92 01/13/17 12:00 Room Air I/O 01/13/17 01/13/17 01/13/17 01/14/17 01/14/17 01/14/17 07:00 15:00 23:00 07:00 15:00 23:00 Intake Total 840 ml 600 ml 360 ml Output Total 1000 ml 350 ml 50 ml Balance -160 ml 250 ml 310 ml Intake Oral 840 ml 600 ml 360 ml Output Urine Total 1000 ml 350 ml 50 ml # Voids 1 # Bowel Movements 1 1 1 Result Diagram: 01/10/17 0513 01/10/17 0513 Imaging Last Impressions Neck CTA 01/09/17 0000 Signed Impressions: Service Date/Time: Monday, January 09, 2017 10:54 - CONCLUSION: 1. 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 2. 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 3. Atherosclerotic plaquing at the carotid bifurcations. No hemodynamically significant carotid artery stenosis is identified. 4. COPD changes in the lung apices. Castillo Garibay MD Head CT 01/03/17 1531 Signed Impressions: Service Date/Time: Tuesday, January 03, 2017 15:49 - CONCLUSION: 1. Evolving left occipital infarct. 2. No acute intracranial abnormality. Vasu Gil MD Chest X-Ray 01/03/17 1531 Signed Impressions: Service Date/Time: Tuesday, January 03, 2017 15:46 - CONCLUSION: The lungs are clear. Harley Perry MD Objective Remarks GENERAL: This is a well-nourished, well-developed patient, NAD NECK: Trachea midline. No JVD or lymphadenopathy. Supple, nontender, no meningeal signs. CARDIOVASCULAR: Regular rate and rhythm without murmurs, gallops, or rubs. RESPIRATORY: Decreased breath sounds bilaterally. No wheezing. No crackles or rhonchi auscultated. GASTROINTESTINAL: Abdomen soft, non-tender, nondistended. No hepato-splenomegaly , or palpable masses. No guarding. MUSCULOSKELETAL: Extremities without clubbing, cyanosis, or edema. No joint tenderness, effusion, or edema noted. No calf tenderness. NEUROLOGICAL: Awake and alert. Cranial nerves II through XII intact. Motor and sensory grossly within normal limits. Five out of 5 muscle strength in all muscle groups. Normal Procedures none A/P Problem List: (1) Headache ICD Code: R51 Status: Acute (2) Elevated troponin I level ICD Code: R74.8 Status: Acute (3) Atrial fibrillation ICD Code: I48.91 Status: Acute (4) CVA (cerebral vascular accident) ICD Code: I63.9 Status: Chronic (5) COPD with exacerbation ICD Code: J44.1 Status: Acute (6) Leukocytosis ICD Code: D72.829 Status: Acute (7) Hyperglycemia ICD Code: R73.9 Status: Acute Assessment and Plan 66-year-old male who presented to [facility] complaining of severe and persistent headaches Headache Evolving left occipital infarct. No acute intracranial abnormality Likely secondary to evolving ischemic CVA, migraine headaches also possible. Continue pain control with Fioricet. Neurology consulted on following Patient had partial response to Imitrex. 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 Atherosclerotic plaquing at the carotid bifurcations. No hemodynamically significant carotid stenosis identified. COPD changes are observed in the lung apices. Vascular surgery consulted - no surgical intervention necessary. 01/12 Headache is much improved. Continue pain control with Fioricet. Patient has been cleared by neurology discharged. Patient will be able to discharge once his INR is more than 2. Elevated troponin I level Elevated troponin, Troponin .10, admitted on 11/01, baseline troponin .10 however trops did go up to 0.38 then down to 0.24 EKG shows a paced rhythm -Dr. Germain evaluated the patient and recommends pt being on anticoagulation, no intervention at this time. Elevated troponins thought to be secondary to evolving CVA. Atrial fibrillation EKG on admission reviewed by me showed paced rhythm. Continue Coumadin, Pharmacy consulted to help with dosing. Monitor PT/INR 01/12 I do not think Coumadin is the best medication for this gentleman. The patient lives alone, seems to have difficulties to understand and follow directions. I spent over 30 minutes to him just discussing medication side effects, he seems to have difficulty understanding this and especially understanding that Coumadin will need to be monitored frequently and that the dose will need to be adjusted. I offered to him that time if of colon into Xarelto or Eliquis if Dr. Castillo would agree to this. However the patient refused and states he wants to continue with Coumadin because these other medications have other side effects including and could also cause diabetes. The patient's INR is subtherapeutic at 1.2. Continue with Coumadin and will keep the patient hospitalized until the INR is more than 2. CVA (cerebral vascular accident) As mentioned above on CT scan of the head. Patient has an evolving left occipital infarct. Continue aspirin fu neurology recommendations COPD with exacerbation Patient has history of COPD. patient was found to be wheezing. Was treated with IV steroids and IV Levaquin. These were discontinued and changed to oral. Continue with oral Levaquin and oral prednisone taper. Patient seems to have a borderline saturation on room air. I will order a story home test to assess if the patient will need home O2 upon discharge. Continue supplemental oxygen and bronchodilators. Leukocytosis Likely due to steroids. Patient is afebrile. Monitor WBC. Hyperglycemia steroid induced hyperglycemia. Hemoglobin A1c 5.6. Diabetes ruled out. Blood sugars stable. Blood sugars should come down as the dose of steroids is tapered. Diarrhea: Check C diff. start probiotic. Hold laxatives/stool softeners. Assessment and Plan DVT prophylaxis: SCD's, Will start on Lovenox SQ Patient was counselled regarding anticoagulation choices. He wants Coumadin. Coumadin would not be the best medication for him and offered to transition him instead into Xarelto or Eliquis, however the patient refused to be started on any of this given that he has seen on TV that these could have many problems. Discharge Planning Patient refuses to go on one of the novel anticoagulants. Patient will be able to be discharge once his INR is more than 2. Discussed with the patient,nurse, Dr Castillo neurology. Problem Qualifiers (1) Headache: (2) Atrial fibrillation: Qualified Code: I48.2 - Chronic atrial fibrillation (3) CVA (cerebral vascular accident): Qualified Code: I63.9 - Cerebrovascular accident (CVA), unspecified mechanism (4) Leukocytosis: Qualified Code: D72.829 - Leukocytosis, unspecified type Esme Driver MD Jan 14, 2017 09:35
[2017-01-14] MEDS: DOCUSATE SODIUM 50 MG/SENNA 8.6 MG TAB PO SCH ×2 (10:03→21:16)
[2017-01-14] MEDS: CHOLECALCIFEROL (VIT D3) 1000 UNIT TAB PO SCH (10:03)
[2017-01-14] MEDS: LEVOFLOXACIN 500 MG TAB PO SCH (10:03)
[2017-01-14] MEDS: predniSONE 20 MG TAB PO SCH ×2 (10:03→21:16)
[2017-01-14] MEDS: FUROSEMIDE 20 MG TAB PO SCH (10:03)
[2017-01-14] MEDS: BUDESONIDE-FORMOTEROL 160/4.5 MCG INHALER INH SCH ×2 (10:04→21:20)
[2017-01-14] MEDS: WARFARIN SOD 5 MG TAB PO SCH (16:39)
[2017-01-14] MEDS: ENOXAPARIN SODIUM 40 MG/0.4 ML SYRINGE SQ SCH (21:16)
[2017-01-14] MEDS: ASPIRIN EC 81 MG TABEC PO SCH (21:16)
[2017-01-15] VITALS (8 sets, daily range): BP systolic 101–116; BP diastolic 59–69; PULSE 50–90; RESP 18–22; TEMP 97.2–98.7; O2SAT 92–98
[2017-01-15 08:50] LABS: INTERNATIONAL NORMALIZED RATIO 1.8 RATIO; PROTHROMBIN TIME - PATIENT 20.1 SEC (9.8-11.6)
[2017-01-15] MEDS: BUDESONIDE-FORMOTEROL 160/4.5 MCG INHALER INH SCH ×2 (09:00→20:18)
[2017-01-15] MEDS: SODIUM CHLORIDE 0.9% FLUSH 10 ML FLUSH IV FLUSH SCH ×2 (09:00→20:19)
[2017-01-15] MEDS: ACETAMIN 325 MG/BUTALBITAL 50 MG/CAFFEINE 40 MG TAB PO PRN ×2 (10:04→18:32)
[2017-01-15] MEDS: CHOLECALCIFEROL (VIT D3) 1000 UNIT TAB PO SCH (10:05)
[2017-01-15] MEDS: DOCUSATE SODIUM 50 MG/SENNA 8.6 MG TAB PO SCH ×2 (10:05→20:19)
[2017-01-15] MEDS: predniSONE 20 MG TAB PO SCH ×2 (10:05→20:19)
[2017-01-15] MEDS: FUROSEMIDE 20 MG TAB PO SCH (10:05)
[2017-01-15] MEDS: LEVOFLOXACIN 500 MG TAB PO SCH (10:05)
--- NOTE | 2017-01-15 11:23 | HHI.PR ---
Subjective Remarks Patient with multiple questions. Discussed with the patient at length all questions answered. Patient feel his memory is declining, will also do cognitive eval. Patient feels sob , as he went to the bath without O2. He is in the chair now, with O2 by NC on. He is less sob. He says he had headache but feels better now. No n/v/d/c. denies chest pain or palpitations. Objective Vitals Vital Signs Date Time Temp Pulse Resp B/P Pulse Ox O2 Delivery O2 Flow Rate FiO2 01/15/17 08:00 98.0 82 20 112/67 92 01/15/17 06:00 98.0 79 22 101/66 95 01/15/17 04:00 Nasal Cannula 2.00 01/15/17 00:00 Nasal Cannula 2.00 01/15/17 00:00 98.0 77 20 116/62 98 01/14/17 20:19 95 Nasal Cannula 3.00 01/14/17 20:00 98.0 79 22 117/65 95 01/14/17 20:00 90 01/14/17 20:00 Nasal Cannula 3.00 01/14/17 16:00 97.0 73 20 112/65 96 01/14/17 12:00 97.0 69 20 101/67 94 I/O 01/14/17 01/14/17 01/14/17 01/15/17 01/15/17 01/15/17 07:00 15:00 23:00 07:00 15:00 23:00 Intake Total 360 ml 960 ml 700 ml 240 ml Output Total 50 ml 725 ml 900 ml Balance 310 ml 960 ml -25 ml -660 ml Intake Oral 360 ml 960 ml 700 ml 240 ml Output Urine Total 50 ml 725 ml 900 ml # Voids 1 4 # Bowel Movements 1 0 0 1 Imaging Last Impressions Neck CTA 01/09/17 0000 Signed Impressions: Service Date/Time: Monday, January 09, 2017 10:54 - CONCLUSION: 1. 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 2. 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 3. Atherosclerotic plaquing at the carotid bifurcations. No hemodynamically significant carotid artery stenosis is identified. 4. COPD changes in the lung apices. Castillo Garibay MD Head CT 01/03/17 1531 Signed Impressions: Service Date/Time: Tuesday, January 03, 2017 15:49 - CONCLUSION: 1. Evolving left occipital infarct. 2. No acute intracranial abnormality. Vasu Gil MD Chest X-Ray 01/03/17 1531 Signed Impressions: Service Date/Time: Tuesday, January 03, 2017 15:46 - CONCLUSION: The lungs are clear. aHrley Perry MD Objective Remarks GENERAL: This is a well-nourished, well-developed patient, NAD NECK: Trachea midline. No JVD or lymphadenopathy. Supple, nontender, no meningeal signs. CARDIOVASCULAR: Regular rate and rhythm without murmurs, gallops, or rubs. RESPIRATORY: Decreased breath sounds bilaterally. No wheezing. No crackles or rhonchi auscultated. GASTROINTESTINAL: Abdomen soft, non-tender, nondistended. No hepato-splenomegaly , or palpable masses. No guarding. MUSCULOSKELETAL: Extremities without clubbing, cyanosis, or edema. No joint tenderness, effusion, or edema noted. No calf tenderness. NEUROLOGICAL: Awake and alert. Cranial nerves II through XII intact. Motor and sensory grossly within normal limits. Five out of 5 muscle strength in all muscle groups. Normal Procedures none A/P Problem List: (1) Headache ICD Code: R51 Status: Acute (2) Elevated troponin I level ICD Code: R74.8 Status: Acute (3) Atrial fibrillation ICD Code: I48.91 Status: Acute (4) CVA (cerebral vascular accident) ICD Code: I63.9 Status: Chronic (5) COPD with exacerbation ICD Code: J44.1 Status: Acute (6) Leukocytosis ICD Code: D72.829 Status: Acute (7) Hyperglycemia ICD Code: R73.9 Status: Acute Assessment and Plan 66-year-old male who presented to [facility] complaining of severe and persistent headaches Headache Likely secondary to evolving ischemic CVA, migraine headaches also possible. Evolving left occipital infarct. No acute intracranial abnormality Continue pain control with Fioricet. Neurology consulted , discussed with Dr Castillo neurology cleared for DC when INR therapeutic Patient had partial response to Imitrex. 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 Atherosclerotic plaquing at the carotid bifurcations. No hemodynamically significant carotid stenosis identified. COPD changes are observed in the lung apices. Vascular surgery consulted - no surgical intervention necessary. 01/12 Headache is much improved. Continue pain control with Fioricet. Patient has been cleared by neurology discharged. Patient will be able to discharge once his INR is more than 2. Will do cognitive eval as patient is having memory decline says since October Elevated troponin I level Elevated troponin, Troponin .10, admitted on 11/01, baseline troponin .10 however trops did go up to 0.38 then down to 0.24 EKG shows a paced rhythm -Dr. Germain evaluated the patient and recommends pt being on anticoagulation, no intervention at this time. Elevated troponins thought to be secondary to evolving CVA. Atrial fibrillation EKG on admission reviewed by me showed paced rhythm. Continue Coumadin, Pharmacy consulted to help with dosing. Monitor PT/INR 01/12 I do not think Coumadin is the best medication for this gentleman. The patient lives alone, seems to have difficulties to understand and follow directions. I spent over 30 minutes to him just discussing medication side effects, he seems to have difficulty understanding this and especially understanding that Coumadin will need to be monitored frequently and that the dose will need to be adjusted. I offered to him that time if of colon into Xarelto or Eliquis if Dr. Castillo would agree to this. However the patient refused and states he wants to continue with Coumadin because these other medications have other side effects including and could also cause diabetes. The patient's INR is subtherapeutic at 1.2. Continue with Coumadin and will keep the patient hospitalized until the INR is more than 2. CVA (cerebral vascular accident) As mentioned above on CT scan of the head. Patient has an evolving left occipital infarct. Continue aspirin fu neurology recommendations COPD with exacerbation Patient has history of COPD. patient was found to be wheezing. Was treated with IV steroids and IV Levaquin. These were discontinued and changed to oral. Continue with oral Levaquin and oral prednisone taper. Patient seems to have a borderline saturation on room air. I will order a story home test to assess if the patient will need home O2 upon discharge. Continue supplemental oxygen and bronchodilators. Leukocytosis Likely due to steroids. Patient is afebrile. Monitor WBC. Hyperglycemia steroid induced hyperglycemia. Hemoglobin A1c 5.6. Diabetes ruled out. Blood sugars stable. Blood sugars should come down as the dose of steroids is tapered. Diarrhea: Check C diff. start probiotic. Hold laxatives/stool softeners. Assessment and Plan DVT prophylaxis: SCD's, Will start on Lovenox SQ Patient was counselled regarding anticoagulation choices. He wants Coumadin. Coumadin would not be the best medication for him and offered to transition him instead into Xarelto or Eliquis, however the patient refused to be started on any of this given that he has seen on TV that these could have many problems. Discharge Planning Patient refuses to go on one of the novel anticoagulants. Patient will be able to be discharge once his INR is more than 2. Discussed with the patient,nurse Problem Qualifiers (1) Headache: (2) Atrial fibrillation: Qualified Code: I48.2 - Chronic atrial fibrillation (3) CVA (cerebral vascular accident): Qualified Code: I63.9 - Cerebrovascular accident (CVA), unspecified mechanism (4) Leukocytosis: Qualified Code: D72.829 - Leukocytosis, unspecified type Esme Driver MD Jan 15, 2017 11:23
[2017-01-15] MEDS: WARFARIN SOD 10 MG TAB PO SCH (18:30)
[2017-01-15] MEDS: ASPIRIN EC 81 MG TABEC PO SCH (20:19)
[2017-01-15] MEDS: ENOXAPARIN SODIUM 40 MG/0.4 ML SYRINGE SQ SCH (21:38)
[2017-01-16] VITALS (7 sets, daily range): BP systolic 98–113; BP diastolic 60–81; PULSE 54–94; RESP 18–20; TEMP 97.2–98.2; O2SAT 92–95
[2017-01-16] MEDS: ACETAMIN 325 MG/BUTALBITAL 50 MG/CAFFEINE 40 MG TAB PO PRN ×2 (07:50→16:01)
[2017-01-16 08:26] LABS: INTERNATIONAL NORMALIZED RATIO 1.3 RATIO; PROTHROMBIN TIME - PATIENT 14.7 SEC (9.8-11.6)
[2017-01-16] MEDS: SODIUM CHLORIDE 0.9% FLUSH 10 ML FLUSH IV FLUSH SCH ×2 (09:00→21:41)
[2017-01-16] MEDS: LEVOFLOXACIN 500 MG TAB PO SCH (09:53)
[2017-01-16] MEDS: DOCUSATE SODIUM 50 MG/SENNA 8.6 MG TAB PO SCH ×2 (09:53→21:00)
[2017-01-16] MEDS: predniSONE 20 MG TAB PO SCH ×2 (09:53→21:41)
[2017-01-16] MEDS: FUROSEMIDE 20 MG TAB PO SCH (09:53)
[2017-01-16] MEDS: CHOLECALCIFEROL (VIT D3) 1000 UNIT TAB PO SCH (09:53)
[2017-01-16] MEDS: BUDESONIDE-FORMOTEROL 160/4.5 MCG INHALER INH SCH ×2 (10:26→21:00)
--- NOTE | 2017-01-16 12:07 | HHI.PR ---
Subjective Remarks Ambulating with pT and a walker. Says she feels sob with ambulation. O2 sat s well. Patient denies any lightheadedness , no headache at this time. No n/v/d/c. No new motor deficit. Objective Vitals Vital Signs Date Time Temp Pulse Resp B/P Pulse Ox O2 Delivery O2 Flow Rate FiO2 01/16/17 08:00 97.2 70 18 113/74 92 01/16/17 04:00 98.0 56 20 110/60 95 01/16/17 04:00 Nasal Cannula 3.00 01/16/17 00:00 97.9 54 19 106/64 95 01/16/17 00:00 Nasal Cannula 3.00 01/15/17 21:15 97.2 50 19 105/59 94 01/15/17 20:00 Nasal Cannula 3.00 01/15/17 20:00 87 01/15/17 16:00 98.7 70 18 111/69 97 I/O 01/15/17 01/15/17 01/15/17 01/16/17 01/16/17 01/16/17 07:00 15:00 23:00 07:00 15:00 23:00 Intake Total 240 ml 960 ml 1050 ml 1000 ml Output Total 900 ml 500 ml 900 ml Balance -660 ml 960 ml 550 ml 100 ml Intake Oral 240 ml 960 ml 1050 ml 1000 ml IV Total 0 ml Output Urine Total 900 ml 500 ml 900 ml # Voids 4 # Bowel Movements 1 1 0 0 Imaging Last Impressions Neck CTA 01/09/17 0000 Signed Impressions: Service Date/Time: Monday, January 09, 2017 10:54 - CONCLUSION: 1. 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 2. 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 3. Atherosclerotic plaquing at the carotid bifurcations. No hemodynamically significant carotid artery stenosis is identified. 4. COPD changes in the lung apices. Castillo Garibay MD Head CT 01/03/171 Signed Impressions: Service Date/Time: Tuesday, January 03, 2017 15:49 - CONCLUSION: 1. Evolving left occipital infarct. 2. No acute intracranial abnormality. Vasu Gil MD Chest X-Ray 01/03/171 Signed Impressions: Service Date/Time: Tuesday, January 03, 2017 15:46 - CONCLUSION: The lungs are clear. Harley Perry MD Objective Remarks GENERAL: This is a well-nourished, well-developed patient, NAD NECK: Trachea midline. No JVD or lymphadenopathy. Supple, nontender, no meningeal signs. CARDIOVASCULAR: Regular rate and rhythm without murmurs, gallops, or rubs. RESPIRATORY: Decreased breath sounds bilaterally. No wheezing. No crackles or rhonchi auscultated. GASTROINTESTINAL: Abdomen soft, non-tender, nondistended. No hepato-splenomegaly , or palpable masses. No guarding. MUSCULOSKELETAL: Extremities without clubbing, cyanosis, or edema. No joint tenderness, effusion, or edema noted. No calf tenderness. NEUROLOGICAL: Awake and alert. Cranial nerves II through XII intact. Motor and sensory grossly within normal limits. Five out of 5 muscle strength in all muscle groups. Normal Procedures none A/P Problem List: (1) Headache ICD Code: R51 Status: Acute (2) Elevated troponin I level ICD Code: R74.8 Status: Acute (3) Atrial fibrillation ICD Code: I48.91 Status: Acute (4) CVA (cerebral vascular accident) ICD Code: I63.9 Status: Chronic (5) COPD with exacerbation ICD Code: J44.1 Status: Acute (6) Leukocytosis ICD Code: D72.829 Status: Acute (7) Hyperglycemia ICD Code: R73.9 Status: Acute Assessment and Plan 66-year-old male who presented to [facility] complaining of severe and persistent headaches Headache, resolving. Likely secondary to evolving ischemic CVA, migraine headaches also possible. Evolving left occipital infarct. No acute intracranial abnormality Continue pain control with Fioricet. Neurology consulted , discussed with Dr Castillo neurology cleared for DC when INR therapeutic Patient had partial response to Imitrex. 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 Atherosclerotic plaquing at the carotid bifurcations. No hemodynamically significant carotid stenosis identified. COPD changes are observed in the lung apices. Vascular surgery consulted - no surgical intervention necessary. 01/12 Headache is much improved. Continue pain control with Fioricet. Patient has been cleared by neurology discharged. Patient will be able to discharge once his INR is more than 2. Will do cognitive eval as patient is having memory decline says since October Elevated troponin I level Elevated troponin, Troponin .10, admitted on 11/01, baseline troponin .10 however trops did go up to 0.38 then down to 0.24 EKG shows a paced rhythm -Dr. Germain evaluated the patient and recommends pt being on anticoagulation, no intervention at this time. Elevated troponins thought to be secondary to evolving CVA. Atrial fibrillation EKG on admission reviewed by me showed paced rhythm. Continue Coumadin, Pharmacy consulted to help with dosing. Monitor PT/INR 01/12 I do not think Coumadin is the best medication for this gentleman. The patient lives alone, seems to have difficulties to understand and follow directions. I spent over 30 minutes to him just discussing medication side effects, he seems to have difficulty understanding this and especially understanding that Coumadin will need to be monitored frequently and that the dose will need to be adjusted. I offered to him that time if of colon into Xarelto or Eliquis if Dr. Castillo would agree to this. However the patient refused and states he wants to continue with Coumadin because these other medications have other side effects including and could also cause diabetes. The patient's INR is subtherapeutic at 1.2. Continue with Coumadin and will keep the patient hospitalized until the INR is more than 2. CVA (cerebral vascular accident) As mentioned above on CT scan of the head. Patient has an evolving left occipital infarct. Continue aspirin fu neurology recommendations COPD with exacerbation Patient has history of COPD. patient was found to be wheezing. Was treated with IV steroids and IV Levaquin. These were discontinued and changed to oral. Continue with oral Levaquin and oral prednisone taper. Patient seems to have a borderline saturation on room air. I will order a story home test to assess if the patient will need home O2 upon discharge. Continue supplemental oxygen and bronchodilators. Leukocytosis Likely due to steroids. Patient is afebrile. Monitor WBC. Hyperglycemia steroid induced hyperglycemia. Hemoglobin A1c 5.6. Diabetes ruled out. Blood sugars stable. Blood sugars should come down as the dose of steroids is tapered. Diarrhea: Check C diff. start probiotic. Hold laxatives/stool softeners. Assessment and Plan DVT prophylaxis: SCD's, Will start on Lovenox SQ Patient was counselled regarding anticoagulation choices. He wants Coumadin. Coumadin would not be the best medication for him and offered to transition him instead into Xarelto or Eliquis, however the patient refused to be started on any of this given that he has seen on TV that these could have many problems. Discharge Planning Patient refuses to go on one of the novel anticoagulants. Patient will be able to be discharge once his INR is more than 2. Discussed with the patient,nurse Problem Qualifiers (1) Headache: (2) Atrial fibrillation: Qualified Code: I48.2 - Chronic atrial fibrillation (3) CVA (cerebral vascular accident): Qualified Code: I63.9 - Cerebrovascular accident (CVA), unspecified mechanism (4) Leukocytosis: Qualified Code: D72.829 - Leukocytosis, unspecified type Esme Driver MD Jan 16, 2017 12:07
[2017-01-16] MEDS: WARFARIN SOD 10 MG TAB PO SCH (15:57)
[2017-01-16] MEDS ORDERED: WARFARIN SOD 2.5 MG TAB PO SCH (16:00)
[2017-01-16] MEDS ORDERED: WARFARIN SOD 2.5 MG TAB PO ONE (16:00)
[2017-01-16] MEDS: ENOXAPARIN SODIUM 40 MG/0.4 ML SYRINGE SQ SCH (21:39)
[2017-01-16] MEDS: ASPIRIN EC 81 MG TABEC PO SCH (21:40)
[2017-01-17 00:40] VITALS: BP 111/59; PULSE 79; RESP 20; TEMP 97.3; O2SAT 94
[2017-01-17 04:45] VITALS: BP 98/57; PULSE 82; RESP 18; TEMP 97.9; O2SAT 92
[2017-01-17] MEDS: ACETAMIN 325 MG/BUTALBITAL 50 MG/CAFFEINE 40 MG TAB PO PRN ×2 (07:47→17:21)
[2017-01-17 08:00] VITALS: BP 130/77; PULSE 50; RESP 20; TEMP 94; O2SAT 94
[2017-01-17 08:34] LABS: INTERNATIONAL NORMALIZED RATIO 1.1 RATIO; PROTHROMBIN TIME - PATIENT 11.8 SEC (9.8-11.6)
[2017-01-17] MEDS: predniSONE 20 MG TAB PO SCH ×2 (09:05→20:20)
[2017-01-17] MEDS: CHOLECALCIFEROL (VIT D3) 1000 UNIT TAB PO SCH (09:05)
[2017-01-17] MEDS: FUROSEMIDE 20 MG TAB PO SCH (09:06)
[2017-01-17] MEDS: DOCUSATE SODIUM 50 MG/SENNA 8.6 MG TAB PO SCH ×2 (09:06→20:20)
[2017-01-17] MEDS: LEVOFLOXACIN 500 MG TAB PO SCH (09:06)
[2017-01-17] MEDS: BUDESONIDE-FORMOTEROL 160/4.5 MCG INHALER INH SCH ×2 (09:09→20:20)
[2017-01-17] MEDS: SODIUM CHLORIDE 0.9% FLUSH 10 ML FLUSH IV FLUSH SCH ×2 (09:09→20:21)
[2017-01-17 12:00] VITALS: BP 114/68; PULSE 75; RESP 20; TEMP 97.9; O2SAT 95
[2017-01-17 16:00] VITALS: BP 140/76; PULSE 75; RESP 20; TEMP 98.5; O2SAT 97
[2017-01-17] MEDS ORDERED: WARFARIN SOD 5 MG TAB PO SCH (16:00)
[2017-01-17] MEDS ORDERED: APIX5TAB PO (16:09)
--- NOTE | 2017-01-17 16:24 | HHI.PR ---
Subjective Remarks Patient denies cp/sob denies headache stable vital signs Objective Vitals Vital Signs Date Time Temp Pulse Resp B/P Pulse Ox O2 Delivery O2 Flow Rate FiO2 01/17/17 12:00 97.9 75 20 114/68 95 01/17/17 08:00 94.0 50 20 130/77 94 01/17/17 08:00 Room Air 01/17/17 04:45 97.9 82 18 98/57 92 01/17/17 00:40 97.3 79 20 111/59 94 01/16/17 20:30 Room Air 01/16/17 20:30 97.4 75 18 98/62 94 01/16/17 19:53 82 I/O 01/16/17 01/16/17 01/16/17 01/17/17 01/17/17 01/17/17 07:00 15:00 23:00 07:00 15:00 23:00 Intake Total 1000 ml 360 ml Output Total 900 ml 400 ml 300 ml 800 ml Balance 100 ml -40 ml -300 ml -800 ml Intake Oral 1000 ml 360 ml Output Urine Total 900 ml 400 ml 300 ml 800 ml # Bowel Movements 0 1 0 Imaging Last Impressions Neck CTA 01/09/17 0000 Signed Impressions: Service Date/Time: Monday, January 09, 2017 10:54 - CONCLUSION: 1. 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 2. 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 3. Atherosclerotic plaquing at the carotid bifurcations. No hemodynamically significant carotid artery stenosis is identified. 4. COPD changes in the lung apices. Castillo Garibay MD Head CT 01/03/17 1531 Signed Impressions: Service Date/Time: Tuesday, January 03, 2017 15:49 - CONCLUSION: 1. Evolving left occipital infarct. 2. No acute intracranial abnormality. Vasu Gil MD Chest X-Ray 01/03/171 Signed Impressions: Service Date/Time: Tuesday, January 03, 2017 15:46 - CONCLUSION: The lungs are clear. Harley Perry MD Objective Remarks GENERAL: This is a well-nourished, well-developed patient, NAD SKIN: No rashes, ecchymoses or lesions. Cool and dry. HEAD: Atraumatic. Normocephalic. No temporal or scalp tenderness. EYES: Pupils equal round and reactive. Extraocular motions intact. No scleral icterus. No injection or drainage. ENT: Nose without bleeding, purulent drainage or septal hematoma. Airway patent. NECK: Trachea midline. No JVD or lymphadenopathy. Supple, nontender, no meningeal signs. CARDIOVASCULAR: Regular rate and rhythm without murmurs, gallops, or rubs. RESPIRATORY: Decreased breath sounds bilaterally. The bilateral expiratory wheezing previously heard has resolved. No crackles or rhonchi auscultated. GASTROINTESTINAL: Abdomen soft, non-tender, nondistended. No hepato-splenomegaly , or palpable masses. No guarding. MUSCULOSKELETAL: Extremities without clubbing, cyanosis, or edema. No joint tenderness, effusion, or edema noted. No calf tenderness. NEUROLOGICAL: Awake and alert. Cranial nerves II through XII intact. Motor and sensory grossly within normal limits. Five out of 5 muscle strength in all muscle groups. Normal Procedures none Medications and IVs Current Medications Medications (Trade) Dose Ordered Sig/Leticia Route Start Time Stop Time Status Last Admin (NS Flush) 2 ml UNSCH PRN IV FLUSH 01/03/17 18:00 (NS Flush) 2 ml BID IV FLUSH 01/03/17 21:00 01/17/17 09:09 (Zofran Inj) 4 mg Q6H PRN IVP 01/03/17 18:00 (Narcan Inj) 0.4 mg UNSCH PRN IV 01/03/17 18:00 (Sally-Colace) 1 tab BID PO 01/03/17 21:00 01/17/17 09:06 (Milk Of Magnesia Liq) 30 ml Q12H PRN PO 01/03/17 18:00 (Senokot) 17.2 mg Q12H PRN PO 01/03/17 18:00 (Dulcolax Supp) 10 mg DAILY PRN RECTAL 01/03/17 18:00 (Lactulose Liq) 30 ml DAILY PRN PO 01/03/17 18:00 (Morphine Inj) 1 mg Q4HR PRN IV PUSH 01/03/17 18:00 (Nitroglycerin 2% Oint) 0.5 inch Q6HR PRN TOPICAL 01/03/17 18:00 (Fioricet 325-50-40) 1 tab Q8H PRN PO 01/03/17 18:30 01/17/17 07:47 (Ecotrin Ec) 81 mg HS PO 01/03/17 21:00 01/16/17 21:40 (Symbicort 160-4.5 Inh) 2 puff Q12HR INH 01/03/17 21:00 01/17/17 09:09 (Vitamin D3) 1,000 units DAILY PO 01/04/17 09:00 01/17/17 09:05 (Lasix) 20 mg DAILY PO 01/04/17 09:00 01/17/17 09:06 Prednisone 5 mg 5 mg DAILY PO 01/04/17 09:00 Hold 01/09/17 09:11 (Coumadin Consult Pharmacy) 0 ml @ 0 mls/hr UNSCH OTHER 01/07/17 09:30 (Imitrex Inj) 6 mg UNSCH PRN SQ 01/08/17 20:15 (Deltasone) 20 mg BID PO 01/11/17 09:00 01/17/17 09:05 (Lovenox Inj) 40 mg Q24H SQ 01/10/17 22:00 01/16/17 21:39 (Levaquin) 500 mg DAILY PO 01/12/17 09:00 01/17/17 09:06 (Coumadin) 10 mg DAILY@1600 PO 01/15/17 16:00 01/16/17 15:57 (Coumadin) 5 mg ONCE PO 01/17/17 16:00 01/17/17 23:59 Urinary Catheter: No Vascular Central Line Catheter: No A/P Problem List: (1) Headache ICD Code: R51 Status: Acute Plan: 66-year-old male who presented to [facility] complaining of severe and persistent headaches Evolving left occipital infarct. No acute intracranial abnormality Likely secondary to evolving ischemic CVA, migraine headaches also possible. Continue pain control with Fioricet. Neurology consulted on following Patient had partial response to Imitrex. 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 Atherosclerotic plaquing at the carotid bifurcations. No hemodynamically significant carotid stenosis identified. COPD changes are observed in the lung apices. Vascular surgery consulted - no surgical intervention necessary. Continue pain control with Fioricet. Patient has been cleared by neurology discharged. Patient will be able to discharge once his INR is more than 2. 6/20 INR is subtherapeutic at 1.1. Discussed the case with the patient. Explained to him that because of the difficulty on achieveng therapeutic range with Coumadin I believe it is most likely the best agent for him. Explained that one of the newer anticoagulants would be most effective at achieving appropriate anticoagulation. As I believe that the patient will have trouble following up with his INR and therefore Coumadin is not the best medication for him. He agreed to start Eliquis so will discontinue Coumadin and start Eliquis mammograms by mouth twice a day. Discussed with counseling case manager who will make sure that the patient will be able to get Eliquis as an outpatient before discharging the patient. (2) Elevated troponin I level ICD Code: R74.8 Status: Acute Plan: Elevated troponin, Troponin .10, admitted on 11/01, baseline troponin .10 however trops did go up to 0.38 then down to 0.24 EKG shows a paced rhythm -Dr. Germain evaluated the patient and recommends pt being on anticoagulation, no intervention at this time. Elevated troponins thought to be secondary to evolving CVA. e. (3) Atrial fibrillation ICD Code: I48.91 Status: Acute Plan: EKG on admission reviewed by me showed paced rhythm. Continue Coumadin, Pharmacy consulted to help with dosing. Monitor PT/INR 01/12 I do not think Coumadin is the best medication for this gentleman. The patient lives alone, seems to have difficulties to understand and follow directions. I spent over 30 minutes to him just discussing medication side effects, he seems to have difficulty understanding this and especially understanding that Coumadin will need to be monitored frequently and that the dose will need to be adjusted. I offered to him that time if of colon into Xarelto or Eliquis if Dr. Castillo would agree to this. However the patient refused and states he wants to continue with Coumadin because these other medications have other side effects including and could also cause diabetes. The patient's INR is subtherapeutic at 1.2. Continue with Coumadin and will keep the patient hospitalized until the INR is more than 2. 6/20 patient still with subtherapeutic INR 1.1 despite getting elevated doses of Coumadin. As stated before, then it is likely not the best medication for this patient who seems to have some cognitive problems and most likely will not follow-up for his INR. He agreed to start taking Eliquis. (4) CVA (cerebral vascular accident) ICD Code: I63.9 Status: Chronic Plan: As mentioned above on CT scan of the head. Patient has an evolving left occipital infarct. Continue aspirin fu neurology recommendations (5) COPD with exacerbation ICD Code: J44.1 Status: Acute Plan: Patient has history of COPD. patient was found to be wheezing. Was treated with IV steroids and IV Levaquin. These were discontinued and changed to oral. Continue with oral Levaquin and oral prednisone taper. Patient seems to have a borderline saturation on room air. I will order a story home test to assess if the patient will need home O2 upon discharge. Continue supplemental oxygen and bronchodilators. (6) Leukocytosis ICD Code: D72.829 Status: Acute Plan: Likely due to steroids. Patient is afebrile. Monitor WBC. (7) Hyperglycemia ICD Code: R73.9 Status: Acute Plan: steroid induced hyperglycemia. Hemoglobin A1c 5.6. Diabetes ruled out. Blood sugars stable. Blood sugars should come down as the dose of steroids is tapered. Assessment and Plan DVT prophylaxis: SCD's, Will start on Lovenox SQ Spent 35 minutes [id number] with the patient on counseling and coordination of care explaining side effects of Coumadin, insulin to him that leaving the major side effect as with any other blood thinner. He seems to have some learning difficulties because he would ask the same question over and over again. I explained to him that probably Coumadin would not be the best medication for him and offered to transition him instead into Xarelto or Eliquis. The patient accepted to be started on Eliquis. Discharge Planning Will discharge home with outpatient OT. Patient agreed to be started on Eliquis. Discussed with counseling case manager. Patient could be discharged home once counseling case manager make sure that the patient will be able to obtain Eliquis as an outpatient. Problem Qualifiers (1) Headache: (2) Atrial fibrillation: Qualified Code: I48.2 - Chronic atrial fibrillation (3) CVA (cerebral vascular accident): Qualified Code: I63.9 - Cerebrovascular accident (CVA), unspecified mechanism (4) Leukocytosis: Qualified Code: D72.829 - Leukocytosis, unspecified type Elliott Baez MD Jan 17, 2017 16:24
[2017-01-17] MEDS ORDERED: APIXABAN 5 MG TABLET PO ONE (17:30)
[2017-01-17 20:00] VITALS: BP 120/73; PULSE 95; PULSE 97; RESP 20; TEMP 97.8; O2SAT 93
[2017-01-17] MEDS: ASPIRIN EC 81 MG TABEC PO SCH (20:20)
[2017-01-17] MEDS: ENOXAPARIN SODIUM 40 MG/0.4 ML SYRINGE SQ SCH (20:22)
[2017-01-18] VITALS: BP 109/86; PULSE 70; RESP 20; TEMP 97.9; O2SAT 93
[2017-01-18 04:00] VITALS: BP 127/70; PULSE 76; RESP 18; TEMP 97.6; O2SAT 93
[2017-01-18] MEDS: ACETAMIN 325 MG/BUTALBITAL 50 MG/CAFFEINE 40 MG TAB PO PRN (06:12)
[2017-01-18 07:05] LABS: PROTHROMBIN TIME - PATIENT 11.5 SEC (9.8-11.6)
[2017-01-18] MEDS: BUDESONIDE-FORMOTEROL 160/4.5 MCG INHALER INH SCH (08:56)
[2017-01-18] MEDS: LEVOFLOXACIN 500 MG TAB PO SCH (08:56)
[2017-01-18] MEDS: CHOLECALCIFEROL (VIT D3) 1000 UNIT TAB PO SCH (08:56)
[2017-01-18] MEDS: FUROSEMIDE 20 MG TAB PO SCH (08:56)
[2017-01-18] MEDS: DOCUSATE SODIUM 50 MG/SENNA 8.6 MG TAB PO SCH (08:56)
[2017-01-18] MEDS: predniSONE 20 MG TAB PO SCH (08:56)
[2017-01-18] MEDS: SODIUM CHLORIDE 0.9% FLUSH 10 ML FLUSH IV FLUSH SCH (08:56)
== END 2017-01-18 10:11 | disposition home or self-care (01) | DRG 103 ==
LOC: NEPE 15:03 → NEDA 17:53 → HCIS 19:11 → N04B 01-07 16:32
PROVIDERS: ADMIT Hospitalist; ATTEND Hospitalist
DX: R51 Headache (principal); I67.1 Cerebral aneurysm, nonruptured; I42.0 Dilated cardiomyopathy; I48.0 Paroxysmal atrial fibrillation; I11.0 Hypertensive heart disease with heart failure; I50.9 Heart failure, unspecified; I48.2 Chronic atrial fibrillation; G43.909 Migraine, unspecified, not intractable, without status migrainosus; J44.1 Chronic obstructive pulmonary disease with (acute) exacerbation; Z95.1 Presence of aortocoronary bypass graft; I25.2 Old myocardial infarction; I25.10 Atherosclerotic heart disease of native coronary artery without angina pectoris; Z95.5 Presence of coronary angioplasty implant and graft; E78.00 Pure hypercholesterolemia, unspecified; Z87.891 Personal history of nicotine dependence; R74.8 Abnormal levels of other serum enzymes; I25.5 Ischemic cardiomyopathy; E78.5 Hyperlipidemia, unspecified; R73.03 Prediabetes; Z95.0 Presence of cardiac pacemaker; Z82.3 Family history of stroke; Z83.3 Family history of diabetes mellitus; G89.29 Other chronic pain; M54.9 Dorsalgia, unspecified; D72.829 Elevated white blood cell count, unspecified; T38.0X5A Adverse effect of glucocorticoids and synthetic analogues, initial encounter; R73.9 Hyperglycemia, unspecified; Z86.73 Personal history of transient ischemic attack (TIA), and cerebral infarction without residual deficits
CPT/HCPCS: 70450; 70498; 71010; 80048; 80053; 82550; 82552; 83036; 83690; 83735; 83880; 84100; 84484; 85025; 85027; 85610; 85652; 85730; 86140; 93005; 94620; 96360; 96361; J1650; J1956; J2920; J2930; J7040; J7512; Q9967

== ENCOUNTER 2018-03-27 06:00 | Observation (INO) ==
[2018-03-27] MEDS ORDERED: Azithromycin Inj 500 MG in Sodium Chlor 0.9% Inj 250 ML IV.SIG ONE (07:07)
[2018-03-27] MEDS ORDERED: MethylPREDNISolone Sod Succinate Inj 125 MG/2 ML Vial IV.PUSH ONE (07:07)
--- NOTE | 2018-03-27 07:07 | ED ---
HPI General Chief complaint: Shortness of Breath/Dyspnea Stated complaint: SOB Time Seen by Provider: 03/27/18 06:11 Source: patient Limitations: no limitations History of Present Illness HPI narrative: The patient is a 67 year old male who presents to the [facility] emergency department with a history of shortness of breath that is been present since yesterday. The patient reports that in spite of using his 3 L nasal cannula O2 the shortness of breath has worsened. The patient reports having history of COPD. He denies using any inhalers. He denies taking any other medications on a regular basis as he reports that he does not like to take pills. The patient according to the record has a history of atrial fibrillation, history of coronary artery disease, prior cerebrovascular accident , hypertension, hyperlipidemia, and COPD. He denies having any nausea, vomiting , or diarrhea associated with this. He denies having any lower extremity edema. He reports that he has gained a possibly 5-7 pounds related to eating more than usual. He denies having any calf pain or erythema. He denies having any productive cough or coughing more than usual. On review of systems otherwise, patient denies having any known recent fevers, neck pain, chest pain , abdominal pain, vomiting, diarrhea, urinary symptoms, or neurologic symptoms. Tetanus is reportedly up to date. Related Data Allergies Allergy/AdvReac Type Severity Reaction Status Date / Time MRI PRECAUTION AdvReac Severe NON Uncoded 11/01/16 19:07 COMPATIBLE PACEMAKER 11/01/16 LRS Review of Systems ROS: all other systems reviewed are negative (Except for that which was mentioned in the HPI.) [facility] Medical History Medical History COPD (chronic obstructive pulmonary disease) (Acute) Pacemaker (Acute) Atrial fibrillation (Acute) Cerebrovascular accident (Acute) Hyperlipidemia (Acute) Hypertension (Acute) Social History Social History Substance History: No History of Abuse Second Hand Smoke Exposure: No Smoking Status: Former smoker How Often Do You Have a Drink Containing Alcohol: 2 to 4 times a month Recent Travel in [facility] within the Last 8 Weeks: No Recent Out of Country Travel within the Last 8 Weeks: No Immunization History Tetanus Immunization: >5 Years Hx Influenza Vaccine This Season: No Exam Const General: cooperative, well developed and acute distress (Mild respiratory distress noted on initial arrival with pursed lip breathing.) mild and respiratory Orientation: alert, awake and oriented x3 HENMT Head: normocephalic and atraumatic Nose: no nasal discharge and no epistaxis Mouth: moist mucous membranes Throat: posterior oropharynx normal and uvula midline Eyes Sclera: normal sclerae Pupils: PERRL Neck Neck: trachea midline and no JVD Resp Effort & Inspection: audible wheezes, tachypneic and no use of accessory muscles Auscultation: crackles (Audible in the right lower lung base) on the right and wheezes expiratory wheezes Cardio Rate: regular rate Rhythm: regular rhythm Heart Sounds: no gallops, no murmurs and no rubs GI Inspection: non-distended Palpation: soft, no hepatosplenomegaly and nontender Auscultation: normal bowel sounds Back/Spine/Pelvis Back: no CVA tenderness Skin General: dry skin (warm) Neuro General: alert, awake and oriented x3 Cranial Nerves: CN's II-XI intact bilaterally Speech: speech normal (Except for conversational dyspnea.) Motor: strength 5/5 throughout and no movement abnormalities noted Sensory Exam: no sensory deficits noted Extrem General: normal to inspection (No calf tenderness on palpation. 2+ pulses in all 4 extremities.), no clubbing, no cyanosis and edema (Trace pedal edema.) Laterality: bilaterally Psych Mood: congruent mood Affect: normal affect Judgment: judgment good Course Reevaluation(s) Reevaluation #1: Patient signed out to me, Dr. Slaughter from Dr. Posada, at 7AM. Patient's labs show an elevated troponin and D. Dimer. Patient has had elevated troponins in the past, so anticoagulation held for trending of the troponin. CTA chest performed shows emphysema, no evidence of PE. Patient has had aspirin. Patient still currently wheezing. Given additional duoneb. He has received Solumedrol. He will be admitted for further management. Time: 10:40 Initial Documented Vital Signs Temperature 97.7 F 03/27/18 06:02 Pulse Rate 101 H 03/27/18 06:02 Respiratory Rate 24 03/27/18 06:02 Blood Pressure 120/78 03/27/18 06:02 Pulse Oximetry 87 L 03/27/18 06:02 Last Documented Vital Signs Temperature 97.8 F 03/27/18 06:08 Pulse Rate 78 03/27/18 08:34 Respiratory Rate 16 03/27/18 08:34 Blood Pressure 113/66 03/27/18 07:00 Pulse Oximetry 96 03/27/18 08:34 Medical Decision Making MDM Narrative Medical decision making narrative: During the course of the patient's emergency department visit, the patient's history, examination, and differential diagnosis were reviewed with the patient. The patient was placed on a electric razor assembler with oximetry and frequent blood pressure monitoring. The patient had IV access obtained and blood work sent for analysis. Diagnostic evaluation was started regarding the patient's shortness of breath since yesterday. The patient was initially provided DuoNeb 3, Solu-Medrol 125 mg, Rocephin 1 g IV, Zithromax 500 IV for suspected COPD exacerbation. The patient's case will be checked out to the oncoming emergency physician to disposition the patient based on the conclusion of his workup. The patient has laboratory studies, and imaging pending. Medical Screen Exam Complete: Yes Emergency Medical Condition: Yes Differential Diagnosis Differential Diagnosis: COPD exacerbation, versus congestive heart failure, versus acute coronary syndrome, versus pulmonary embolism Medical Records Medical records reviewed: Yes I reviewed the patient's medical records. Lab Data Result diagrams: 03/27/18 06:45 03/27/18 06:45 Lab Results 03/27/18 03/27/18 03/27/18 Range/Units 06:45 06:45 06:45 WBC 7.5 (4.0-11.0) th/mm3 RBC 4.61 (4.50-5.90) mil/mm3 Hgb 13.8 (13.0-17.0) gm/dL Hct 42.6 (39.0-51.0) % MCV 92.4 (80.0-100.0) fL MCH 30.0 (27.0-34.0) pg MCHC 32.4 (32.0-36.0) % RDW 14.5 (11.6-17.2) % Plt Count 158 (150-450) th/mm3 MPV 9.1 (7.0-11.0) fL Neut % (Auto) 69.1 (16.0-70.0) % Lymph % (Auto) 19.8 (9.0-44.0) % Bland % (Auto) 8.1 H (0.0-8.0) % Eos % (Auto) 2.4 (0.0-4.0) % Baso % (Auto) 0.6 (0.0-2.0) % Neut # (Auto) 5.2 (1.8-7.7) th/mm3 Lymph # (Auto) 1.5 (1.0-4.8) th/mm3 Bland # (Auto) 0.6 (0.0-0.9) th/mm3 Eos # (Auto) 0.2 (0.0-0.4) th/mm3 Baso # (Auto) 0.0 (0.0-0.2) th/mm3 WBC Differential . Differential Comment Auto diff final PT 12.0 H (9.8-11.6) sec INR 1.2 Ratio APTT 28.7 (24.3-30.1) sec D-Dimer Quant (PE/DVT) (0.00-0.50) mg/L FEU Sodium 144 (136-145) meq/L Potassium 3.9 (3.5-5.1) meq/L Chloride 105 (98-107) meq/L Carbon Dioxide 31.2 (21.0-32.0) meq/L Anion Gap 8 (5-15) meq/L BUN 21 H (7-18) mg/dL Creatinine 1.16 (0.60-1.30) mg/dL Estimated GFR 63 L (>89) mL/min Random Glucose 116 H (74-106) mg/dL Calcium 8.5 (8.5-10.1) mg/dL Magnesium 2.2 (1.5-2.5) mg/dL Total Bilirubin 0.5 (0.2-1.0) mg/dL AST 87 H (15-37) U/L ALT 109 H (12-78) U/L Alkaline Phosphatase 88 (45-117) U/L Total Creatine Kinase 124 (39-308) U/L CK-MB (CK-2) 4.2 H (0.5-3.6) ng/mL Troponin I 0.16 H (0.02-0.05) ng/mL B-Natriuretic Peptide (0-100) pg/mL Total Protein 6.7 (6.4-8.2) g/dL Albumin 3.6 (3.4-5.0) g/dL 03/27/18 03/27/18 Range/Units 06:45 06:45 WBC (4.0-11.0) th/mm3 RBC (4.50-5.90) mil/mm3 Hgb (13.0-17.0) gm/dL Hct (39.0-51.0) % MCV (80.0-100.0) fL MCH (27.0-34.0) pg MCHC (32.0-36.0) % RDW (11.6-17.2) % Plt Count (150-450) th/mm3 MPV (7.0-11.0) fL Neut % (Auto) (16.0-70.0) % Lymph % (Auto) (9.0-44.0) % Bland % (Auto) (0.0-8.0) % Eos % (Auto) (0.0-4.0) % Baso % (Auto) (0.0-2.0) % Neut # (Auto) (1.8-7.7) th/mm3 Lymph # (Auto) (1.0-4.8) th/mm3 Bland # (Auto) (0.0-0.9) th/mm3 Eos # (Auto) (0.0-0.4) th/mm3 Baso # (Auto) (0.0-0.2) th/mm3 WBC Differential Differential Comment PT (9.8-11.6) sec INR Ratio APTT (24.3-30.1) sec D-Dimer Quant (PE/DVT) 0.61 H (0.00-0.50) mg/L FEU Sodium (136-145) meq/L Potassium (3.5-5.1) meq/L Chloride (98-107) meq/L Carbon Dioxide (21.0-32.0) meq/L Anion Gap (5-15) meq/L BUN (7-18) mg/dL Creatinine (0.60-1.30) mg/dL Estimated GFR (>89) mL/min Random Glucose (74-106) mg/dL Calcium (8.5-10.1) mg/dL Magnesium (1.5-2.5) mg/dL Total Bilirubin (0.2-1.0) mg/dL AST (15-37) U/L ALT (12-78) U/L Alkaline Phosphatase (45-117) U/L Total Creatine Kinase (39-308) U/L CK-MB (CK-2) (0.5-3.6) ng/mL Troponin I (0.02-0.05) ng/mL B-Natriuretic Peptide 1128 H (0-100) pg/mL Total Protein (6.4-8.2) g/dL Albumin (3.4-5.0) g/dL Imaging Data Radiologist's impression: Chest X-Ray 03/27/18 06:45 CONCLUSION: 1. Progressive interstitial prominence which may reflect mild positive fluid balance. Chest CTA 03/27/18 07:52 CONCLUSION: No evidence of pulmonary embolism. Centrilobular emphysema ECG Data Attestation: I personally reviewed and interpreted this ECG as follows: Interpretation: The patient had an EKG done on arrival that shows heart rate of 101, electronic ventricular paced rhythm, QRS duration is 172 [address] segment elevation. Discharge Plan Discharge Disposition Patient Disposition: 30 Still Patient Discharge Condition Condition: Stable Discharge Details Diagnosis: COPD (chronic obstructive pulmonary disease), Elevated troponin Physicians Team ED Provider: Alysia Slaughter Primary Care Provider: [facility] Status ED Status: With Doctor
[2018-03-27 07:10] LABS: Baso % (Auto) 0.6 % (0.0-2.0); Eos # (Auto) 0.2 th/mm3 (0.0-0.4); Eos % (Auto) 2.4 % (0.0-4.0); Hematocrit 42.6 % (39.0-51.0); Hemoglobin 13.8 gm/dL (13.0-17.0); Lymph # (Auto) 1.5 th/mm3 (1.0-4.8); Lymph % (Auto) 19.8 % (9.0-44.0); Mean Corpuscular HGB Conc 32.4 % (32.0-36.0); Mean Corpuscular Volume 92.4 fL (80.0-100.0); Mean Platelet Volume 9.1 fL (7.0-11.0); Mono # (Auto) 0.6 th/mm3 (0.0-0.9); Mono % (Auto) 8.1 % (0.0-8.0); Neut # (Auto) 5.2 th/mm3 (1.8-7.7); Neut % (Auto) 69.1 % (16.0-70.0); Platelet Count 158 th/mm3 (150-450); Red Blood Count 4.61 mil/mm3 (4.50-5.90); Red Cell Distribution Width 14.5 % (11.6-17.2); White Blood Count 7.5 th/mm3 (4.0-11.0)
[2018-03-27 07:21] LABS: Activated Partial Thrombo Time 28.7 sec (24.3-30.1); INR 1.2 Ratio
[2018-03-27 07:30] LABS: Alanine Aminotransferase 109 U/L (12-78); Albumin 3.6 g/dL (3.4-5.0); Anion Gap 8 meq/L (5-15); Aspartate Aminotransferase 87 U/L (15-37); Calcium 8.5 mg/dL (8.5-10.1); Carbon Dioxide 31.2 meq/L (21.0-32.0); Chloride 105 meq/L (98-107); Glomerular Filtration Rate 63 mL/min (>89); Glucose,Random 116 mg/dL (74-106); Magnesium 2.2 mg/dL (1.5-2.5); Potassium 3.9 meq/L (3.5-5.1); Sodium 144 meq/L (136-145)
[2018-03-27 07:34] LABS: Alkaline Phosphatase 88 U/L (45-117); Blood Urea Nitrogen 21 mg/dL (7-18); Creatine Kinase 124 U/L (39-308); Total Protein 6.7 g/dL (6.4-8.2); Troponin I 0.16 ng/mL (0.02-0.05)
--- NOTE | 2018-03-27 07:40 | XR ---
EXAM DATE: 03/27/2018 7:35 AM EDT AGE/SEX: 67 years / Male INDICATIONS: Shortness of breath. CLINICAL DATA: This is the patient's initial encounter. Patient reports that signs and symptoms have been present for 1 day and indicates a pain score of 0/10. MEDICAL/SURGICAL HISTORY: Cardiovascular disease. Pacemaker. CABG. COMPARISON: [facility] [place], CHEST SINGLE AP, 01/03/2017. . FINDINGS: Worsening diffuse interstitial prominence with persistent scarring in the left lung base. Postsurgica l features of previous cardiac surgery with dual lead AICD device in place. Cardiomediastinal contour s are stable. Remainder of the exam is unchanged. CONCLUSION: 1. Progressive interstitial prominence which may reflect mild positive fluid balance. Electronically signed by: Vasu Gil MD 03/27/2018 7:39 AM EDT
[2018-03-27 07:47] LABS: Creatine Kinase MB 4.2 ng/mL (0.5-3.6)
--- NOTE | 2018-03-27 08:59 | CT ---
EXAM DATE: 03/27/2018 8:37 AM EDT AGE/SEX: 67 years / Male INDICATIONS: Short of breath. CLINICAL DATA: This is the patient's initial encounter. Patient reports that signs and symptoms have been present for 1 day and indicates a pain score of 0/10. MEDICAL/SURGICAL HISTORY: Chronic obstructive pulmonary disease. Hypertension. Pacemaker. RADIATION DOSE: 18.40 CTDI (mGy) COMPARISON: No prior exams available for comparison. TECHNIQUE: Volumetric scanning was performed using a multi-row detector CT scanner during bolus infu miranda of 71 ml Omnipaque 350 (iohexol) nonionic water-soluble contrast as a single exam dose. The lara a was post processed with a variety of visualization algorithms including full volume maximum intensi ty projection and sliding thin slab reformation. Using automated exposure control and adjustment of the mA and/or kV according to patient size, radiation dose was kept as low as reasonably achievable t o obtain optimal diagnostic quality images. DICOM format image data is available electronically for review and comparison. FINDINGS: There are centrilobular emphysematous changes in both upper lobes. There is subsegmental atelectasis in the right base. Coronary artery calcifications are present. Median sternotomy wires are present. Examination of the pulmonary vasculature demonstrates good filling of the main, lobar and segmental b ranches. There are no filling defects to suggest pulmonary embolism. Multiplanar reconstructions are also unremarkable. CONCLUSION: No evidence of pulmonary embolism. Centrilobular emphysema Electronically signed by: Santi Estevez MD 03/27/2018 8:57 AM EDT
[2018-03-27] MEDS ORDERED: Bisacodyl 10 MG Supp RECTAL PRN (11:45)
[2018-03-27] MEDS ORDERED: Acetaminophen 325 MG Tablet PO PRN (11:45)
[2018-03-27] MEDS ORDERED: Enoxaparin Inj 40 MG/0.4 ML Syringe SQ SCH (12:00)
[2018-03-27] MEDS ORDERED: Dextrose 50% in Water 50 ML Vial IV.PUSH PRN (12:05)
[2018-03-27] MEDS ORDERED: Morphine Inj 4 MG/ML Vial IV.PUSH PRN (12:06)
[2018-03-27] MEDS ORDERED: Morphine Sulfate Inj 2 MG/ML Vial IV.PUSH PRN (12:06)
[2018-03-27] MEDS ORDERED: Naloxone Inj 0.4 MG/ML Vial IV.PUSH PRN (12:06)
--- NOTE | 2018-03-27 12:13 | P.HPIM ---
History of Present Illness Service: [facility] Primary Care Physician: [facility] Chief Complaint: SHORTNESS OF BREATH History of Present Illness: Patient is a 67-year-old male who presented to the [facility] emergency department earlier this morning with a history of increasing shortness of breath that has been worse since yesterday. Patient normally uses 3 L by nasal cannula oxygen. Has had increasing shortness of breath has a history of COPD. He states he does not use any inhalers. Does not use any nebulizers. Denies taking any medications on a regular basis as he reports he does not like to take pills. The patient has a history of atrial fibrillation and history of coronary artery disease and history of previous cerebrovascular accident as well as hypertension and hyperlipidemia and COPD and history of CABG. He denies any nausea or vomiting or diarrhea. He denies any swelling in his lower extremities. He thinks that he has gained maybe 5-7 pounds from eating more than usual. Denies having any calf pain or swelling. Denies having any productive cough or coughing more than usual patient denies any fevers, denies any neck pain, denies any chest pain, denies any abdominal pain, denies any vomiting, denies any diarrhea, melena, denies any urinary symptoms, or any neurological symptoms. Patient normally only goes to the [place] [facility] Inpatient Certification: I certify that the inpatient services were ordered in accordance with Medicare regulations governing the order. This includes certification that hospital inpatient services are reasonable and necessary and in the case of services not specified as inpatient-only under 42 CFR 419.22(n), that they are appropriately provided as inpatient services in accordance to with the 2-midnight benchmark under 43 CFR 412.3(e) Estimated Total Length of Stay (Days): 3 Plans for Post Hospital Care: Not yet determined Review of Systems All other systems reviewed negative except as stated in HPI, unobtainable due to mental condition, unobtainable due to mental status PMFSH - History History Provided By: Patient - Medical History Medical History: Medical History (Last Updated 03/27/18 @ 12:03 by Bishop Bach DO) COPD (chronic obstructive pulmonary disease) (Acute) Pacemaker (Acute) Coronary artery disease Pacemaker Atrial fibrillation Cerebrovascular accident Hyperlipidemia Hypertension - Family History Family History: Family History (Last Updated 03/27/18 @ 12:03 by Bishop Bach DO) Other Family history of hypertension - Tobacco History Second Hand Smoke Exposure: No Tobacco Use In Past 30 Days: No Smoking Status: Former smoker - Alcohol History How Often Do You Have a Drink Containing Alcohol: 2 to 4 times a month - Substance Use History Substance History: No History of Abuse - Travel History History of Recent Travel: No Recent Travel in the [place] Within the Last 8 Weeks: No Recent Travel Out of the Country Within the Last 8 Weeks: No - Immunization History Tetanus Immunization: >5 Years Hx Influenza Vaccine This Season: No Medications and Allergies Active Medications: Active Medications Acetaminophen (Tylenol) 650 mg PO Q4H PRN PRN Reason: Temp > 100.4 Al Hydroxide/Mg Hydroxide (Milk Of Magnesia Liq) 30 ml PO Q12H PRN PRN Reason: Mild Constipation Albuterol (Duoneb Neb (Kaylee)) 1 ampul NEB Q6HR NEB KAYLEE Albuterol (Duoneb Neb (Prn)) 1 ampul NEB Q4HR NEB PRN PRN Reason: SHORTNESS OF BREATH/WHEEZING Bisacodyl (Dulcolax Supp) 10 mg RECTAL DAILY PRN PRN Reason: SEVERE CONSITIPATION Budesonide/Formoterol Fumarate (Symbicort 160/4.5 Mcg Inh) 2 puff INH BID KAYLEE Clonidine HCl (Catapres) 0.1 mg PO Q6H PRN PRN Reason: HYPERTENSION Enoxaparin Sodium (Lovenox Inj) 40 mg SQ Q24H KAYLEE Famotidine (Pepcid) 20 mg PO BID KAYLEE Guaifenesin (Mucinex Er) 600 mg PO BID KAYLEE Sodium Chloride (Ns Inj) 1,000 mls @ 100 mls/hr IV.CONT .Q10H KAYLEE Azithromycin 500 mg/ Sodium (Chloride) 250 mls @ 250 mls/hr IV.SIG Q24H KAYLEE Ceftriaxone Sodium 1,000 mg/ (Sodium Chloride) 100 mls @ 200 mls/hr IV.SIG Q24H KAYLEE Lactulose (Lactulose Liq) 30 ml PO DAILY PRN PRN Reason: SEVERE CONSITIPATION Methylprednisolone Sodium Succinate (Solumedrol Inj) 40 mg IV.PUSH Q12H KAYLEE Ondansetron HCl (Zofran Inj) 4 mg IV.PUSH Q6H PRN PRN Reason: NAUSEA OR VOMITING Senna/Docusate Sodium (Sally-Colace) 1 tab PO BID KAYLEE Sennosides (Senokot) 17.2 mg PO Q12H PRN PRN Reason: Moderate Constipation Sodium Chloride (Ns Flush) 2 ml IV.FLUSH BID KAYLEE Sodium Chloride (Ns Flush) 2 ml IV.FLUSH PRN PRN PRN Reason: FLUSH AFTER USING IV ACCESS Allergies Allergy/AdvReac Type Severity Reaction Status Date / Time MRI PRECAUTION AdvReac Severe NON Uncoded 11/01/16 19:07 COMPATIBLE PACEMAKER 11/01/16 LRS Home Medications Medication Instructions Recorded Confirmed Type apixaban 5 mg PO BID 03/27/18 03/27/18 History carvedilol 3.125 mg PO BID 03/27/18 03/27/18 History cholecalciferol (vitamin D3) 1,000 unit PO DAILY 03/27/18 03/27/18 History tramadol 50 mg PO Q6H 03/27/18 03/27/18 History Exam Vital signs: Vital Signs 03/27/18 06:02 03/27/18 06:08 03/27/18 06:45 Temperature 97.7 F 97.8 F Pulse Rate 101 H 110 H 71 Respiratory Rate 24 34 H 18 Blood Pressure 120/78 132/81 Pulse Oximetry 87 L 94 L 96 03/27/18 06:50 03/27/18 06:57 03/27/18 07:00 Temperature Pulse Rate 70 77 77 Respiratory Rate 18 18 20 Blood Pressure 113/66 Pulse Oximetry 95 03/27/18 07:10 03/27/18 08:00 03/27/18 08:34 Temperature Pulse Rate 77 76 78 Respiratory Rate 16 16 Blood Pressure 106/58 L Pulse Oximetry 94 L 96 03/27/18 11:30 Temperature Pulse Rate 77 Respiratory Rate 20 Blood Pressure 97/53 L Pulse Oximetry 95 Intake & Output 03/26/18 03/27/18 03/27/18 18:59 06:59 18:59 Weight 68.039 kg Narrative: GENERAL: Awake alert and oriented 1 has some confusion SKIN: Warm and dry. HEAD: Atraumatic. Normocephalic. EYES: Pupils equal and round. No scleral icterus. No injection or drainage. ENT: No nasal bleeding or discharge. Mucous membranes pink and moist. NECK: Trachea midline. No JVD. CARDIOVASCULAR: IRRegular rate and rhythm. S1-S2 no S3 or S4 RESPIRATORY: No accessory muscle use. Breath sounds equal bilaterally. Rhonchi and wheezes bilaterally. Coarse breath sounds bilaterally GASTROINTESTINAL: Abdomen soft, non-tender, nondistended. Hepatic and splenic margins not palpable. MUSCULOSKELETAL: Extremities without clubbing, cyanosis, or edema. No obvious deformities. NEUROLOGICAL: Awake and alert. No obvious cranial nerve deficits. Motor grossly within normal limits. Five out of 5 muscle strength in the arms and legs. Normal speech. PSYCHIATRIC: INAppropriate mood and affect; insight and judgment ABnormal. Results - Labs CBC & Chem 7: 03/27/18 06:45 03/27/18 06:45 Labs: Short CBC 03/27/18 Range/Units 06:45 WBC 7.5 (4.0-11.0) th/mm3 Hgb 13.8 (13.0-17.0) gm/dL Hct 42.6 (39.0-51.0) % Plt Count 158 (150-450) th/mm3 BMP 03/27/18 06:45 Sodium 144 Potassium 3.9 Chloride 105 Carbon Dioxide 31.2 BUN 21 H Creatinine 1.16 Calcium 8.5 Cardiac Enzymes 03/27/18 Range/Units 06:45 Total Creatine Kinase 124 (39-308) U/L CK-MB (CK-2) 4.2 H (0.5-3.6) ng/mL Troponin I 0.16 H (0.02-0.05) ng/mL Liver Function 03/27/18 Range/Units 06:45 Total Bilirubin 0.5 (0.2-1.0) mg/dL AST 87 H (15-37) U/L ALT 109 H (12-78) U/L Alkaline Phosphatase 88 (45-117) U/L Albumin 3.6 (3.4-5.0) g/dL - Imaging Impressions Chest X-Ray 03/27/18 06:45 CONCLUSION: 1. Progressive interstitial prominence which may reflect mild positive fluid balance. Chest CTA 03/27/18 07:52 CONCLUSION: No evidence of pulmonary embolism. Centrilobular emphysema Caprini VTE Risk Assessment Caprini VTE Risk Assessment: Moderate/High Risk (score >= 2) Caprini Risk Assessment Model: Point Value = 1 Point Value = 2 Point Value = 3 Point Value = 5 Age 41-60 Minor surgery BMI > 25 kg/m2 Swollen legs Varicose veins or History of unexplained or recurrent spontaneous Oral contraceptives or hormone replacement Sepsis (< 1 month) Serious lung disease, including pneumonia (< 1 month) Abnormal pulmonary function Acute myocardial infarction Congestive heart failure (< 1 month) History of inflammatory bowel disease Medical patient at bed rest Age 61-74 Arthroscopic surgery Major open surgery (> 45 min) Laparoscopic surgery (> 45 min) Malignancy Confined to bed (> 72 hours) Immobilizing plaster cast Central venous access Age >= 75 History of VTE Family history of VTE Factor V Leiden Prothrombin [id number] Lupus anticoagulant Anticardiolipin antibodies Elevated serum homocysteine Heparin-induced thrombocytopenia Other congenital or acquired thrombophilia Stroke (< 1 month) Elective arthroplasty Hip, pelvis, or leg fracture Acute spinal cord injury (< 1 month) Prophylaxis Regimen: Total Risk Factor Score Risk Level Prophylaxis Regimen 0-1 Low Early ambulation 2 Moderate Order ONE of the following: *Sequential Compression Device (SCD) *Heparin 5000 units SQ BID 3-4 Higher Order ONE of the following medications: *Heparin 5000 units SQ TID *Enoxaparin/Lovenox 40 mg SQ daily (WT < 150 kg, CrCl > 30 mL/min) *Enoxaparin/Lovenox 30 mg SQ daily (WT < 150 kg, CrCl > 10-29 mL/min) *Enoxaparin/Lovenox 30 mg SQ BID (WT < 150 kg, CrCl > 30 mL/min) AND/OR *Sequential Compression Device (SCD) 5 or more Highest Order ONE of the following medications: *Heparin 5000 units SQ TID (Preferred with Epidurals) *Enoxaparin/Lovenox 40 mg SQ daily (WT < 150 kg, CrCl > 30 mL/min) *Enoxaparin/Lovenox 30 mg SQ daily (WT < 150 kg, CrCl > 10-29 mL/min) *Enoxaparin/Lovenox 30 mg SQ BID (WT < 150 kg, CrCl > 30 mL/min) AND *Sequential Compression Device (SCD) Assessment and Plan - Plan COPD exacerbation -Continue on duo nebs scheduled and as needed -Continue on Mucinex -Continue on Symbicort -Continue on steroids -Continue on incentive spirometry -Continue on antibiotics with Zithromax and Rocephin Atrial fibrillation History of pacemaker continue on his Coreg 3.125 mg twice daily Continue on Eliquis 5 mg p.o. twice daily Chronic pain continue on tramadol and morphine as needed Hyperlipidemia resume home medications Hypertension continue on Coreg Gait instability secondary to his CVA continue with physical therapy and Occupational Therapy History of CVA continue on physical therapy and Occupational Therapy Elevated troponins Consult cardiology Get echo Trend troponins Continue on Eliquis 5 mg p.o. twice daily We will give an aspirin 81 mg daily DVT prophylaxis with Eliquis GI prophylaxis with Pepcid twice daily Code Status: Full code Discussed Condition With: RN and patient and emergency room physician Discharge Planning: Once breathing better and improved
[2018-03-27 12:58] LABS: Hemoglobin A1c 5.8 % (4.3-6.0)
[2018-03-27] MEDS: Sod Chloride 0.9% Inj 1,000 ML IV.CONT SCH (13:28)
[2018-03-27] MEDS: guaiFENesin 600 MG ER Tablet PO SCH ×2 (13:31→20:25)
[2018-03-27] MEDS: Famotidine 20 MG Tablet PO SCH ×2 (13:31→20:33)
[2018-03-27] MEDS: MethylPREDNISolone Sod Succinate Inj 40 MG/ML Vial IV.PUSH SCH (14:06)
[2018-03-27 14:32] LABS: Troponin I 0.14 ng/mL (0.02-0.05)
--- NOTE | 2018-03-27 16:23 | ECG ---
Date Performed: 03/27/2018 Time Performed: 06:23:20 PTAGE: 67 years EKG: ELECTRONIC VENTRICULAR PACEMAKER Since the previous tracing, no significant change noted AB NORMAL RHYTHM ECG PREVIOUS TRACING : 01/03/2017 15.14 DOCTOR: Jamal Machado Interpretating Date/Time 03/27/2018 16:19:32
[2018-03-27] MEDS: Budesonide-Formoterol 160/4.5 MCG 6 GM Inhaler INH SCH ×2 (16:36→20:25)
--- NOTE | 2018-03-27 17:54 | MB ---
cc: Pradip Cheung DO DATE: 03/27/2018 REASON FOR CONSULTATION: Shortness of breath, elevated troponin. HISTORY OF PRESENT ILLNESS: Chaka Harris is a pleasant 67-year-old male who sees Dr. Meek Mart for cardiology and presented to [facility] due to shortness of breath. He is normally on 3 liters of nasal cannula oxygen. He has noticed that the shortness of breath is worse over the past 24 hours. For some reason, he has COPD and does not use any inhalers or nebulizers. He states that he started feeling better once he was given a nebulizer here. He denies any chest pain. He denies any fevers or chills. During his workup here, he did have a mildly elevated troponin at 0.16, which has since decreased to 0.14. In seeing him, he is currently hemodynamically stable without chest pain or shortness of breath. PAST MEDICAL HISTORY: 1. COPD. 2. Coronary artery disease. 3. Atrial fibrillation. 4. CVA. 5. Hyperlipidemia. 6. Hypertension. 7. Peripheral artery disease. PAST SURGICAL HISTORY: 1. CABG x4 (03/09/2007) DOBBS to, I believe, the diagonal and then a saphenous vein graft to the LAD from that. Per the dictation, SVG to ramus, SVG to PDA. 2. AICD placement. ALLERGIES: DENIES. MEDICATIONS: 1. Tramadol 50 mg every 6 hours. 2. Coreg 3.125 mg b.i.d. 3. Eliquis 5 mg b.i.d. 4. Vitamin D 1000 units daily. FAMILY HISTORY: Denies premature coronary artery disease or sudden cardiac within the family. SOCIAL HISTORY: The patient previously smoked but quit a number of years ago. He rarely drinks alcohol. Denies substance abuse. REVIEW OF SYSTEMS: Fourteen systems were reviewed including osteopathic. Pertinent positives and negatives above, otherwise negative. PHYSICAL EXAMINATION: VITAL SIGNS: Temperature 97.8, heart rate 68, blood pressure 111/58, respirations 20, pulse oximetry 99% on 3 liters. GENERAL: The patient appears well, in no acute distress, alert, awake and oriented x 3. HEENT: Extraocular muscles intact. Mucous membranes moist. NECK: Supple. No JVD at 45 degrees. No carotid bruits heard bilaterally. Carotid upstroke is brisk in nature. HEART: Regular rate and rhythm. Positive first and second heart sounds with no noted murmurs, gallops or rubs. LUNGS: Decreased breath sounds bilaterally with minimal wheezing. ABDOMEN: Soft, nontender, nondistended. No organomegaly noted. EXTREMITIES: Show no clubbing, cyanosis or edema. Femoral and distal pulses are intact bilaterally. NEUROLOGIC: No focal deficits. SKIN: Warm, dry and intact. OSTEOPATHIC: No kyphoscoliosis, lordosis or paraspinal tender points. LABORATORY DATA: Hemoglobin 13.8, hematocrit 42.6, platelets 158. Potassium 3.9, BUN 21, creatinine 1.16. Troponin 0.16 decreasing to 0.14. BNP 1,128. Electrocardiogram (03/27/2018 at 0623) underlying sinus rhythm, V pacing. IMPRESSIONS: 1. Shortness of breath, most likely due to chronic obstructive pulmonary disease exacerbation. 2. Minimally elevated troponin, most likely type 2 in nature. 3. Atrial fibrillation, currently on anticoagulation with Eliquis. 4. Hypertension. 5. Hyperlipidemia. 6. History of cerebrovascular accident. RECOMMENDATIONS: 1. Mr. Harris presented with significant shortness of breath, which was relieved by nebulizers, most likely due to chronic obstructive pulmonary disease exacerbation. 2. He did have a minimally elevated troponin and because of this, we will plan on checking a pharmacologic nuclear stress test. Overall to have this done, we need to make sure that he is feeling better from a lung standpoint with no wheezing, due to concern for bronchospasm. 3. If this is negative, I believe that he can be discharged home for followup with Dr. Mart. 4. If this is positive, then we will discuss with him further consideration of cardiac catheterization. 5. He will continue on Eliquis 5 mg b.i.d. for his atrial fibrillation. 6. Further recommendations will be made based on the hospital course. Thank you for allowing me to see Chaka Harris. If there are any questions, please do not hesitate to call. Pradip Cheung, DO HO/alireza , 04:54 PM , 05:06 PM
[2018-03-27] MEDS: Insulin NovoLOG Aspart Correctional Sugar Inj SQ SCH ×3 (17:57→20:25)
[2018-03-27 20:08] LABS: Troponin I 0.1 ng/mL (0.02-0.05)
[2018-03-27] MEDS: Senna/Docusate Sodium 8.6/50 MG Tablet PO SCH (20:25)
[2018-03-27] MEDS: Carvedilol 6.25 MG Tablet PO SCH (20:33)
[2018-03-28] MEDS: MethylPREDNISolone Sod Succinate Inj 40 MG/ML Vial IV.PUSH SCH (00:26)
[2018-03-28] MEDS: Sod Chloride 0.9% Inj 1,000 ML IV.CONT SCH ×3 (00:40→19:40)
[2018-03-28] MEDS: Insulin NovoLOG Aspart Correctional Sugar Inj SQ SCH ×4 (03:24→17:54)
[2018-03-28 06:00] LABS: Hemoglobin 12.5 gm/dL (13.0-17.0); Lymph # (Auto) 0.7 th/mm3 (1.0-4.8); Mean Corpuscular Hemoglobin 29.7 pg (27.0-34.0); Mean Platelet Volume 9.4 fL (7.0-11.0); Mono # (Auto) 0.6 th/mm3 (0.0-0.9); Mono % (Auto) 6.4 % (0.0-8.0); Neut # (Auto) 7.7 th/mm3 (1.8-7.7); Neut % (Auto) 85.6 % (16.0-70.0); Platelet Count 156 th/mm3 (150-450); Red Blood Count 4.22 mil/mm3 (4.50-5.90); Red Cell Distribution Width 14.1 % (11.6-17.2)
[2018-03-28 06:09] LABS: INR 1.2 Ratio; Prothrombin Time 12.6 sec (9.8-11.6)
[2018-03-28 06:25] LABS: Alanine Aminotransferase 81 U/L (12-78); Albumin 3.1 g/dL (3.4-5.0); Anion Gap 6 meq/L (5-15); Aspartate Aminotransferase 45 U/L (15-37); Blood Urea Nitrogen 18 mg/dL (7-18); Calcium 8.2 mg/dL (8.5-10.1); Carbon Dioxide 31.8 meq/L (21.0-32.0); Chloride 104 meq/L (98-107); Glomerular Filtration Rate 87 mL/min (>89); Glucose,Random 119 mg/dL (74-106); Magnesium 2.2 mg/dL (1.5-2.5); Phosphorus 2.6 mg/dL (2.5-4.9); Sodium 142 meq/L (136-145)
[2018-03-28 06:28] LABS: Alkaline Phosphatase 69 U/L (45-117); Total Protein 5.8 g/dL (6.4-8.2)
--- NOTE | 2018-03-28 09:56 | P.PNIM ---
Subjective Interval history: The patient was sitting up in a chair. He had questions about his COPD. He said he was breathing better. He requested breathing treatments. Discussed with nursing at the bedside. Physical Exam Vital signs: Vital Signs 03/27/18 11:30 03/27/18 13:33 03/27/18 14:47 Temperature 97.4 F L Pulse Rate 77 68 70 Respiratory Rate 20 21 20 Blood Pressure 97/53 L 111/58 L 119/66 Pulse Oximetry 95 99 95 03/27/18 18:00 03/27/18 20:00 03/27/18 22:03 Temperature 97.5 F L Pulse Rate 74 86 75 Respiratory Rate 20 16 Blood Pressure 129/77 Pulse Oximetry 93 L 95 03/28/18 00:00 03/28/18 04:00 Temperature 97.5 F L 98.1 F Pulse Rate 69 64 Respiratory Rate 18 19 Blood Pressure 107/61 110/66 Pulse Oximetry 96 94 L Intake & Output 03/27/18 03/28/18 03/28/18 18:59 06:59 18:59 Intake Total 1000 / 1000 Balance 1000 / 1000 Weight 79.5 kg 82.7 kg Intake: IV 1000 / 1000 NS Inj 1,000 ML @ 100 mls/hr IV 1000 / 1000 .CONT .Q10H KAYLEE Rx#:[id number] Other: # Voids 1 Weight On Admission 79.5 kg Narrative: GENERAL: No distress. SKIN: Warm and dry. HEAD: Atraumatic. Normocephalic. EYES: Pupils equal and round. No scleral icterus. No injection or drainage. ENT: No nasal bleeding or discharge. Mucous membranes pink and moist. NECK: Trachea midline. No JVD. CARDIOVASCULAR: Irregularly irregular. RESPIRATORY: Crackles at the right base. GASTROINTESTINAL: Abdomen soft, non-tender, nondistended. Hepatic and splenic margins not palpable. MUSCULOSKELETAL: Extremities without clubbing, cyanosis, or edema. No obvious deformities. NEUROLOGICAL: Awake and alert. No obvious cranial nerve deficits. Motor grossly within normal limits. Five out of 5 muscle strength in the arms and legs. Normal speech. Results - Labs CBC & Chem 7: 03/28/18 05:03 03/28/18 05:03 Laboratory Results - last 24 hr 03/27/18 03/27/18 03/27/18 06:45 06:45 06:45 WBC RBC Hgb Hct MCV MCH MCHC RDW Plt Count MPV Neut % (Auto) Lymph % (Auto) [place] % (Auto) Eos % (Auto) Baso % (Auto) Neut # (Auto) Lymph # (Auto) [place] # (Auto) Eos # (Auto) Baso # (Auto) WBC Differential Differential Comment PT INR Sodium Potassium Chloride Carbon Dioxide Anion Gap BUN Creatinine Estimated GFR POC Glucose Random Glucose Hemoglobin A1c 5.8 Calcium Phosphorus Magnesium Total Bilirubin AST ALT Alkaline Phosphatase Total Creatine Kinase Troponin I Total Protein Albumin TSH 2.890 Free T4 1.06 03/27/18 03/27/18 03/27/18 13:12 17:30 18:58 WBC RBC Hgb Hct MCV MCH MCHC RDW Plt Count MPV Neut % (Auto) Lymph % (Auto) [place] % (Auto) Eos % (Auto) Baso % (Auto) Neut # (Auto) Lymph # (Auto) [place] # (Auto) Eos # (Auto) Baso # (Auto) WBC Differential Differential Comment PT INR Sodium Potassium Chloride Carbon Dioxide Anion Gap BUN Creatinine Estimated GFR POC Glucose 281 H Random Glucose Hemoglobin A1c Calcium Phosphorus Magnesium Total Bilirubin AST ALT Alkaline Phosphatase Total Creatine Kinase 97 107 Troponin I 0.14 H 0.10 H Total Protein Albumin TSH Free T4 03/27/18 03/28/18 03/28/18 20:18 05:03 05:03 WBC 9.0 RBC 4.22 L Hgb 12.5 L Hct 38.0 L MCV 90.0 MCH 29.7 MCHC 33.0 RDW 14.1 Plt Count 156 MPV 9.4 Neut % (Auto) 85.6 H Lymph % (Auto) 8.0 L [place] % (Auto) 6.4 Eos % (Auto) 0.0 Baso % (Auto) 0.0 Neut # (Auto) 7.7 Lymph # (Auto) 0.7 L [place] # (Auto) 0.6 Eos # (Auto) 0.0 Baso # (Auto) 0.0 WBC Differential . Differential Comment Auto diff final PT 12.6 H INR 1.2 Sodium Potassium Chloride Carbon Dioxide Anion Gap BUN Creatinine Estimated GFR POC Glucose 231 H Random Glucose Hemoglobin A1c Calcium Phosphorus Magnesium Total Bilirubin AST ALT Alkaline Phosphatase Total Creatine Kinase Troponin I Total Protein Albumin TSH Free T4 03/28/18 03/28/18 05:03 08:16 WBC RBC Hgb Hct MCV MCH MCHC RDW Plt Count MPV Neut % (Auto) Lymph % (Auto) [place] % (Auto) Eos % (Auto) Baso % (Auto) Neut # (Auto) Lymph # (Auto) [place] # (Auto) Eos # (Auto) Baso # (Auto) WBC Differential Differential Comment PT INR Sodium 142 Potassium 4.0 Chloride 104 Carbon Dioxide 31.8 Anion Gap 6 BUN 18 Creatinine 0.87 Estimated GFR 87 L POC Glucose 117 H Random Glucose 119 H Hemoglobin A1c Calcium 8.2 L Phosphorus 2.6 Magnesium 2.2 Total Bilirubin 0.5 AST 45 H ALT 81 H Alkaline Phosphatase 69 Total Creatine Kinase Troponin I Total Protein 5.8 L D Albumin 3.1 L TSH Free T4 Assessment and Plan - Plan COPD exacerbation/ Acute respiratory failure CTA negative for PE. -Continue on Duonebs scheduled and as needed -Continue on Mucinex and Symbicort. -Continue on steroids and wean as appropriate. -Continue on incentive spirometry. -Continue on antibiotics with Zithromax and Rocephin. -encourage ambulation. Continue PT/OT. Atrial fibrillation/ History of pacemaker Rate controlled. -continue on his Coreg 3.125 mg twice daily. -Continue on Eliquis 5 mg p.o. twice daily. -telemetry. Gait instability Secondary to his CVA. -continue with physical therapy and occupational therapy. Elevated troponins Likely demand ischemia s/t above. Cardiology consult appreciated. -echo pending. -continue ASA. -stress test per cardiology. Elevated LFTs May be stress reaction. Improving. -monitor as needed. DVT prophylaxis with Eliquis
[2018-03-28] MEDS: Azithromycin Inj 500 MG in Sodium Chlor 0.9% Inj 250 ML IV.SIG SCH (10:01)
[2018-03-28] MEDS: guaiFENesin 600 MG ER Tablet PO SCH ×2 (11:08→22:00)
[2018-03-28] MEDS: Carvedilol 6.25 MG Tablet PO SCH ×2 (11:08→22:01)
[2018-03-28] MEDS: Famotidine 20 MG Tablet PO SCH ×2 (11:09→22:01)
[2018-03-28] MEDS: Budesonide-Formoterol 160/4.5 MCG 6 GM Inhaler INH SCH ×2 (11:09→22:06)
[2018-03-28] MEDS: Senna/Docusate Sodium 8.6/50 MG Tablet PO SCH ×2 (11:09→22:00)
--- NOTE | 2018-03-28 15:49 | NM ---
EXAM DATE: 03/28/2018 2:58 PM EDT AGE/SEX: 67 years / Male INDICATIONS: Coronary atherosclerosis. Atrial fibrillation Dyspnea. CLINICAL DATA: This is the patient's initial encounter. Patient reports that signs and symptoms have been present for 1 day and indicates a pain score of 0/10. MEDICAL/SURGICAL HISTORY: Hypertension. Hypercholesterolemia. Chronic obstructive pulmonary d isease. Pacemaker. COMPARISON: No prior exams available for comparison. DOSE: 8.3 mCi Tc 99m Myoview at rest TECHNIQUE: Resting injection SPECT was performed. Examination was performed on a SPECT/CT scanner. Attenuation corrected and non-attenuation correction images were reviewed. FINDINGS: Resting myocardial perfusion scan was performed without gated images secondary to atrial fibrillation . There is a large size marked severity defect involving the apical segments of the anterior and post erior wall as well as the apex itself. There is a moderate-sized defect involving the midportion of t he lateral wall. CONCLUSION: 1. Multiple defects as described above. The findings could be related to ischemia or previous infarc tion. Electronically signed by: Santi Estevez MD 03/28/2018 3:48 PM EDT
--- NOTE | 2018-03-28 17:22 | ECHRPT ---
Indication: HYPERTENSIVE HEART DISEASE CONCLUSIONS Mildly dilated left ventricle. Mild concentric left ventricular hypertrophy. The left ventricular systolic function is severely reduced with an estimated ejection fraction less than 20%. The right ventricle is moderately dilated. The right ventricular systoilc function is severely decreased. A pacemaker wire is noted. The left atrial size is moderately dilated. The right atrial size is moderately dilated. There is a pacemaker wire present in the right atrial cavity. A patent foramen ovale is present with a [id number] shunt demonstrated by color flow Doppler interrogation. Trace mitral valve regurgitation. Mild aortic valve sclerosis is present. The tricuspid valve is not well visualized. BP: / HR: Rhythm: Sinus MEASUREMENTS (Male / Female) Normal Values Technical Quality:Fair 2D ECHO LV Diastolic Diameter PLAX 6.3 cm 4.2 - 5.9 / 3.9 - 5.3 cm LV Systolic Diameter PLAX 5.6 cm IVS Diastolic Thickness 1.1 cm 0.6 - 1.0 / 0.6 - 0.9 cm LVPW Diastolic Thickness 1.1 cm 0.6 - 1.0 / 0.6 - 0.9 cm LV Relative Wall Thickness 0.4 LVOT Diameter 2.2 cm LA Systolic Diameter LX 4.4 cm 3.0 - 4.0 / 2.7 - 3.8 cm M-MODE AV Cusp Separation MM 2.2 cm DOPPLER AV Peak Velocity 101.0 cm/s AV Peak Gradient 4.1 mmHg LVOT Peak Velocity 55.3 cm/s LVOT Peak Gradient 1.2 mmHg AV Area Cont Eq pk 2.1 cm Mitral E Point Velocity 53.8 cm/s Mitral A Point Velocity 44.9 cm/s Mitral E to A Ratio 1.2 LV E' Lateral Velocity 7.0 cm/s Mitral E to LV E' Lateral Ratio 7.7 LV E' Septal Velocity 3.8 cm/s Mitral E to LV E' Septal Ratio 14.2 TR Peak Velocity 293.0 cm/s TR Peak Gradient 34.3 mmHg Right Atrial Pressure 15.0 mmHg Pulmonary Artery Systolic Pressu 49.3 mmHg Right Ventricular Systolic Press 49.3 mmHg PV Peak Velocity 96.4 cm/s PV Peak Gradient 3.7 mmHg FINDINGS LEFT VENTRICLE Mildly dilated left ventricle. Mild concentric left ventricular hypertrophy. The left ventricular systolic function is severely reduced with an estimated ejection fraction less than 20%. RIGHT VENTRICLE The right ventricle is moderately dilated. The right ventricular systoilc function is severely decreased. A pacemaker wire is noted. LEFT ATRIUM The left atrial size is moderately dilated. RIGHT ATRIUM The right atrial size is moderately dilated. There is a pacemaker wire present in the right atrial cavity. ATRIAL SEPTUM A patent foramen ovale is present with a [id number] shunt demonstrated by color flow Doppler interrogation. AORTA The aortic root and proximal ascending aorta are normal in size on limited imaging. MITRAL VALVE Trace mitral valve regurgitation. AORTIC VALVE Trileaflet aortic valve. Mild aortic valve sclerosis is present. TRICUSPID VALVE The tricuspid valve is not well visualized. PULMONARY VALVE No pulmonary valve regurgitation or stenosis. PERICARDIUM No pericardial effusion. Phil Posada MD (Electronically Signed) Final Date:28 March 2018 17:21
--- NOTE | 2018-03-28 21:33 | ECG ---
Date Performed: 03/27/2018 Time Performed: 19:52:44 PTAGE: 67 years EKG: ELECTRONIC VENTRICULAR PACEMAKER ABNORMAL RHYTHM ECG PREVIOUS TRACING : 03/27/2018 06.23 Since the previous tracing, no significant change noted DOCTOR: Odilon Maciel Interpretating Date/Time 03/28/2018 21:31:13
[2018-03-28] MEDS: predniSONE 20 MG Tablet PO SCH (22:00)
--- NOTE | 2018-03-28 23:33 | P.PNCA ---
Subjective Interval history: No events overnight Stress test today, but patient stopped the second part Physical Exam Vital signs: Vital Signs 03/28/18 00:00 03/28/18 04:00 03/28/18 08:00 Temperature 97.5 F L 98.1 F 97.6 F Pulse Rate 69 64 87 Respiratory Rate 18 19 20 Blood Pressure 107/61 110/66 101/61 Pulse Oximetry 96 94 L 90 L 03/28/18 09:00 03/28/18 12:00 03/28/18 14:30 Temperature 97.1 F L Pulse Rate 60 75 Respiratory Rate 18 18 Blood Pressure 108/68 Pulse Oximetry 92 L 03/28/18 16:00 03/28/18 16:12 03/28/18 19:28 Temperature 97.1 F L Pulse Rate 78 75 Respiratory Rate 18 18 Blood Pressure 115/72 Pulse Oximetry 90 L 95 03/28/18 20:00 03/28/18 20:23 Temperature 97.2 F L Pulse Rate 80 75 Respiratory Rate 18 18 Blood Pressure 110/71 Pulse Oximetry 93 L Intake & Output 03/28/18 03/28/18 03/29/18 06:59 18:59 06:59 Intake Total 1000 / 1000 710 / 710 Output Total 500 / 500 Balance 1000 / 1000 210 / 210 Weight 82.7 kg Intake: IV 1000 / 1000 350 / 350 NS Inj 1,000 ML @ 100 mls/hr IV 1000 / 1000 .CONT .Q10H [facility] Rx#:[id number] Azithromycin Inj 500 MG In NS 250 / 250 Inj 250 ML @ 250 mls/hr IV.SIG Q24H [facility] Rx#:[id number] Rocephin Inj 1,000 MG In NS Inj 100 / 100 100 ML @ 200 mls/hr IV.SIG Q24H [facility] Rx#:[id number] Oral 360 / 360 Output: Urine 500 / 500 Other: # Voids 1 # Bowel Movements 0 Narrative: GENERAL: No distress. SKIN: Warm and dry. HEAD: Atraumatic. Normocephalic. EYES: Pupils equal and round. No scleral icterus. No injection or drainage. ENT: No nasal bleeding or discharge. Mucous membranes pink and moist. NECK: Trachea midline. No JVD. CARDIOVASCULAR: Irregularly irregular. RESPIRATORY: Decreased breath sounds bilaterally GASTROINTESTINAL: Abdomen soft, non-tender, nondistended. Hepatic and splenic margins not palpable. MUSCULOSKELETAL: Extremities without clubbing, cyanosis, or edema. No obvious deformities. NEUROLOGICAL: Awake and alert. No obvious cranial nerve deficits. Motor grossly within normal limits. Five out of 5 muscle strength in the arms and legs. Normal speech. Assessment and Plan - Assessment (1) History of automatic internal cardiac defibrillator (AICD) Status: Acute (2) Afib Code(s): I48.91 - Unspecified atrial fibrillation Status: Acute (3) Elevated troponin Code(s): R74.8 - Abnormal levels of other serum enzymes Status: Acute (4) COPD (chronic obstructive pulmonary disease) Code(s): J44.9 - Chronic obstructive pulmonary disease, unspecified Status: Acute - Plan 1) SOB secondary to COPD exacerbation Feeling better after nebulizers Not on nebulizers/inhalers at home for some reason? 2) Elevated troponins Appears to be Type 2 in nature Attempted stress test, but patient refused the stress portion due to not wanting the radiation Discussed with the patient the importance of the stress test and the components Offered the stress portion tomorrow, but refused He would prefer to do it outpatient with Dr. Mart Will con't on medical management 3) EF < 20% ICD in place 4) Afib On Eliquis Rates controlled (4) COPD (chronic obstructive pulmonary disease) Qualifiers: COPD type: unspecified COPD Qualified Code(s): J44.9 - Chronic obstructive pulmonary disease, unspecified
[2018-03-29] MEDS: Insulin NovoLOG Aspart Correctional Sugar Inj SQ SCH ×6 (06:48→20:13)
[2018-03-29] MEDS: Sod Chloride 0.9% Inj 1,000 ML IV.CONT SCH ×4 (06:49→23:42)
[2018-03-29] MEDS: guaiFENesin 600 MG ER Tablet PO SCH ×2 (08:56→20:10)
[2018-03-29] MEDS: Senna/Docusate Sodium 8.6/50 MG Tablet PO SCH ×2 (08:57→20:13)
[2018-03-29] MEDS: predniSONE 20 MG Tablet PO SCH ×2 (09:00→20:10)
[2018-03-29] MEDS: Famotidine 20 MG Tablet PO SCH ×2 (09:01→20:13)
[2018-03-29] MEDS: Carvedilol 6.25 MG Tablet PO SCH ×2 (09:02→20:09)
[2018-03-29] MEDS: Budesonide-Formoterol 160/4.5 MCG 6 GM Inhaler INH SCH ×2 (09:03→20:13)
[2018-03-29] MEDS: Azithromycin Inj 500 MG in Sodium Chlor 0.9% Inj 250 ML IV.SIG SCH (10:06)
--- NOTE | 2018-03-29 10:29 | P.PNCA ---
Subjective Interval history: No events overnight Physical Exam Vital signs: Vital Signs 03/28/18 12:00 03/28/18 14:30 03/28/18 16:00 Temperature 97.1 F L 97.1 F L Pulse Rate 75 78 Respiratory Rate 18 18 18 Blood Pressure 108/68 115/72 Pulse Oximetry 92 L 90 L 03/28/18 16:12 03/28/18 19:28 03/28/18 20:00 Temperature 97.2 F L Pulse Rate 75 80 Respiratory Rate 18 18 Blood Pressure 110/71 Pulse Oximetry 95 93 L 03/28/18 20:05 03/28/18 20:23 03/29/18 00:00 Temperature 97.2 F L Pulse Rate 99 H 75 64 Respiratory Rate 18 18 Blood Pressure 95/60 L Pulse Oximetry 92 L 03/29/18 04:00 03/29/18 04:07 03/29/18 04:10 Temperature 97.1 F L Pulse Rate 80 79 83 Respiratory Rate 18 18 Blood Pressure 102/74 Pulse Oximetry 92 L 95 03/29/18 08:00 Temperature Pulse Rate 67 Respiratory Rate 17 Blood Pressure Pulse Oximetry 94 L Intake & Output 03/28/18 03/29/18 03/29/18 18:59 06:59 18:59 Intake Total 710 / 710 200 / 200 100 / 100 Output Total 500 / 500 400 / 400 Balance 210 / 210 -200 / -200 100 / 100 Weight 83.6 kg Intake: IV 350 / 350 100 / 100 Azithromycin Inj 500 MG In NS 250 / 250 Inj 250 ML @ 250 mls/hr IV.SIG Q24H [facility] Rx#:[id number] Rocephin Inj 1,000 MG In NS Inj 100 / 100 100 / 100 100 ML @ 200 mls/hr IV.SIG Q24H [facility] Rx#:[id number] Oral 360 / 360 200 / 200 Output: Urine 500 / 500 400 / 400 Other: # Bowel Movements 0 0 Narrative: GENERAL: No distress. SKIN: Warm and dry. HEAD: Atraumatic. Normocephalic. EYES: Pupils equal and round. No scleral icterus. No injection or drainage. ENT: No nasal bleeding or discharge. Mucous membranes pink and moist. NECK: Trachea midline. No JVD. CARDIOVASCULAR: Irregularly irregular. RESPIRATORY: Decreased breath sounds bilaterally GASTROINTESTINAL: Abdomen soft, non-tender, nondistended. Hepatic and splenic margins not palpable. MUSCULOSKELETAL: Extremities without clubbing, cyanosis, or edema. No obvious deformities. NEUROLOGICAL: Awake and alert. No obvious cranial nerve deficits. Motor grossly within normal limits. Five out of 5 muscle strength in the arms and legs. Normal speech. Assessment and Plan - Assessment (1) History of automatic internal cardiac defibrillator (AICD) Status: Acute (2) Afib Code(s): I48.91 - Unspecified atrial fibrillation Status: Acute (3) Elevated troponin Code(s): R74.8 - Abnormal levels of other serum enzymes Status: Acute (4) COPD (chronic obstructive pulmonary disease) Code(s): J44.9 - Chronic obstructive pulmonary disease, unspecified Status: Acute - Plan 1) SOB secondary to COPD exacerbation Feeling better after nebulizers Not on nebulizers/inhalers at home for some reason? 2) Elevated troponins Appears to be Type 2 in nature Attempted stress test, but patient refused the stress portion due to not wanting the radiation Now wants the second part, supposedly set up for today 3) EF < 20% ICD in place 4) Afib On Eliquis Rates controlled (4) COPD (chronic obstructive pulmonary disease) Qualifiers: COPD type: unspecified COPD Qualified Code(s): J44.9 - Chronic obstructive pulmonary disease, unspecified
[2018-03-29] MEDS ORDERED: Regadenoson Inj 0.4 MG/5 ML Syringe IV.PUSH ONE (10:50)
--- NOTE | 2018-03-29 14:13 | P.PNIM ---
Subjective Interval history: The pt was sitting up in bed. He tolerated lunch well. He refused the stress test again because he said that he didn't want to stress out what little left he has of his heart. He says he's on home oxygen. Discussed with nursing. Physical Exam Vital signs: Vital Signs 03/28/18 14:30 03/28/18 16:00 03/28/18 16:12 Temperature 97.1 F L Pulse Rate 78 75 Respiratory Rate 18 18 18 Blood Pressure 115/72 Pulse Oximetry 90 L 03/28/18 19:28 03/28/18 20:00 03/28/18 20:05 Temperature 97.2 F L Pulse Rate 80 99 H Respiratory Rate 18 Blood Pressure 110/71 Pulse Oximetry 95 93 L 03/28/18 20:23 03/29/18 00:00 03/29/18 04:00 Temperature 97.2 F L 97.1 F L Pulse Rate 75 64 80 Respiratory Rate 18 18 18 Blood Pressure 95/60 L 102/74 Pulse Oximetry 92 L 92 L 03/29/18 04:07 03/29/18 04:10 03/29/18 08:00 Temperature Pulse Rate 79 83 67 Respiratory Rate 18 17 Blood Pressure Pulse Oximetry 95 94 L 03/29/18 12:15 Temperature Pulse Rate 75 Respiratory Rate Blood Pressure Pulse Oximetry Intake & Output 03/28/18 03/29/18 03/29/18 18:59 06:59 18:59 Intake Total 710 / 710 200 / 200 350 / 350 Output Total 500 / 500 400 / 400 Balance 210 / 210 -200 / -200 350 / 350 Weight 83.6 kg Intake: IV 350 / 350 350 / 350 Azithromycin Inj 500 MG In NS 250 / 250 250 / 250 Inj 250 ML @ 250 mls/hr IV.SIG Q24H [facility] Rx#:[id number] Rocephin Inj 1,000 MG In NS Inj 100 / 100 100 / 100 100 ML @ 200 mls/hr IV.SIG Q24H [facility] Rx#:[id number] Oral 360 / 360 200 / 200 Output: Urine 500 / 500 400 / 400 Other: # Bowel Movements 0 0 Narrative: GENERAL: No distress. SKIN: Warm and dry. HEAD: Atraumatic. Normocephalic. EYES: Pupils equal and round. No scleral icterus. No injection or drainage. ENT: No nasal bleeding or discharge. Mucous membranes pink and moist. NECK: Trachea midline. No JVD. CARDIOVASCULAR: Irregularly irregular. RESPIRATORY: Decreased breath sounds bilaterally, mild wheezing. GASTROINTESTINAL: Abdomen soft, non-tender, nondistended. Hepatic and splenic margins not palpable. MUSCULOSKELETAL: Extremities without clubbing, cyanosis, or edema. No obvious deformities. NEUROLOGICAL: Awake and alert. No obvious cranial nerve deficits. Motor grossly within normal limits. Five out of 5 muscle strength in the arms and legs. Normal speech. Results - Labs CBC & Chem 7: 03/28/18 05:03 03/28/18 05:03 Laboratory Results - last 24 hr 03/28/18 03/28/18 03/29/18 17:33 21:58 04:59 POC Glucose 86 109 97 03/29/18 03/29/18 07:57 12:02 POC Glucose 107 171 H Microbiology 03/27/18 07:15 Blood - Peripheral Aerobic Blood Culture - Preliminary No growth in 2 days 03/27/18 07:15 Blood - Peripheral Anaerobic Blood Culture - Preliminary No growth in 2 days 03/27/18 07:20 Blood - Peripheral Aerobic Blood Culture - Preliminary No growth in 2 days 03/27/18 07:20 Blood - Peripheral Anaerobic Blood Culture - Preliminary No growth in 2 days - Imaging Impressions Myocardial Perfusion Scan Nuc Med 03/28/18 00:00 CONCLUSION: 1. Multiple defects as described above. The findings could be related to ischemia or previous infarction. Assessment and Plan - Plan COPD exacerbation/ Acute respiratory failure CTA negative for PE. He is on home oxygen. -Continue on Duonebs scheduled and as needed -Continue on Mucinex and Symbicort. -Continue on steroids and wean as appropriate. Doing well on prednisone 20 mg BID. -Continue on incentive spirometry. -Continue on antibiotics with Zithromax and Rocephin. -encourage ambulation. Continue PT/OT. Atrial fibrillation/ History of pacemaker Rate controlled. -continue on his Coreg 3.125 mg twice daily. -Continue on Eliquis 5 mg p.o. twice daily. -telemetry. Gait instability Secondary to his CVA. -continue with physical therapy and occupational therapy. Elevated troponins/ Chronic systolic CHF Likely demand ischemia s/t above. Cardiology consult appreciated. Pt refused stress test x 2. Echo with EF less than 20%. -continue ASA. -follow up with cardiology. Elevated LFTs May be stress reaction. Improving. -monitor as needed. DVT prophylaxis with Eliquis Discharge Planning: D/c home in AM if respiratory status is stable.
[2018-03-30] MEDS: Insulin NovoLOG Aspart Correctional Sugar Inj SQ SCH ×5 (04:43→22:42)
[2018-03-30] MEDS: Famotidine 20 MG Tablet PO SCH ×2 (08:11→22:37)
[2018-03-30] MEDS: Carvedilol 6.25 MG Tablet PO SCH ×2 (08:11→22:42)
[2018-03-30] MEDS: guaiFENesin 600 MG ER Tablet PO SCH ×2 (08:11→22:39)
[2018-03-30] MEDS: Senna/Docusate Sodium 8.6/50 MG Tablet PO SCH ×2 (08:12→22:38)
[2018-03-30] MEDS: predniSONE 20 MG Tablet PO SCH ×2 (08:12→22:40)
[2018-03-30] MEDS: Budesonide-Formoterol 160/4.5 MCG 6 GM Inhaler INH SCH ×2 (08:15→22:44)
[2018-03-30] MEDS: Azithromycin Inj 500 MG in Sodium Chlor 0.9% Inj 250 ML IV.SIG SCH (08:58)
[2018-03-30] MEDS: Sod Chloride 0.9% Inj 1,000 ML IV.CONT SCH (09:42)
--- NOTE | 2018-03-30 11:38 | P.PNCA ---
Subjective Interval history: No events overnight Refused second part of stress test again Physical Exam Vital signs: Vital Signs 03/29/18 12:00 03/29/18 12:15 03/29/18 16:00 Temperature 97.4 F L 97.1 F L Pulse Rate 79 75 79 Respiratory Rate 17 17 Blood Pressure 118/83 105/65 Pulse Oximetry 95 92 L 03/29/18 16:05 03/29/18 20:00 03/29/18 20:45 Temperature 99 F Pulse Rate 88 75 80 Respiratory Rate 14 16 14 Blood Pressure 107/60 Pulse Oximetry 94 L 95 03/30/18 00:00 03/30/18 02:00 03/30/18 04:00 Temperature 98.6 F 98.2 F Pulse Rate 69 87 84 Respiratory Rate 16 17 16 Blood Pressure 100/59 L 114/75 Pulse Oximetry 95 94 L 03/30/18 08:00 03/30/18 09:00 03/30/18 09:13 Temperature 97.7 F Pulse Rate 99 H 87 Respiratory Rate 18 Blood Pressure 125/90 Pulse Oximetry 95 91 L Intake & Output 03/29/18 03/30/18 03/30/18 18:59 06:59 18:59 Intake Total 1910 / 1910 1938 / 1938 532 / 532 Output Total 950 / 950 600 / 600 Balance 960 / 960 1338 / 1338 532 / 532 Weight 84.2 kg Intake: IV 950 / 950 1218 / 1218 532 / 532 NS Inj 1,000 ML @ 100 mls/hr IV 600 / 600 1218 / 1218 182 / 182 .CONT .Q10H [facility] Rx#:[id number] Azithromycin Inj 500 MG In NS 250 / 250 250 / 250 Inj 250 ML @ 250 mls/hr IV.SIG Q24H [facility] Rx#:[id number] Rocephin Inj 1,000 MG In NS Inj 100 / 100 100 / 100 100 ML @ 200 mls/hr IV.SIG Q24H [facility] Rx#:[id number] Oral 960 / 960 720 / 720 Output: Urine 950 / 950 600 / 600 Other: # Voids 3 # Bowel Movements 0 Narrative: GENERAL: No distress. SKIN: Warm and dry. HEAD: Atraumatic. Normocephalic. EYES: Pupils equal and round. No scleral icterus. No injection or drainage. ENT: No nasal bleeding or discharge. Mucous membranes pink and moist. NECK: Trachea midline. No JVD. CARDIOVASCULAR: Irregularly irregular. RESPIRATORY: Decreased breath sounds bilaterally, no wheezing. GASTROINTESTINAL: Abdomen soft, non-tender, nondistended. Hepatic and splenic margins not palpable. MUSCULOSKELETAL: Extremities without clubbing, cyanosis, or edema. No obvious deformities. NEUROLOGICAL: Awake and alert. No obvious cranial nerve deficits. Motor grossly within normal limits. Five out of 5 muscle strength in the arms and legs. Normal speech. Assessment and Plan - Assessment (1) History of automatic internal cardiac defibrillator (AICD) Status: Acute (2) Afib Code(s): I48.91 - Unspecified atrial fibrillation Status: Acute (3) Elevated troponin Code(s): R74.8 - Abnormal levels of other serum enzymes Status: Acute (4) COPD (chronic obstructive pulmonary disease) Code(s): J44.9 - Chronic obstructive pulmonary disease, unspecified Status: Acute - Plan 1) SOB secondary to COPD exacerbation Feeling better after nebulizers Not on nebulizers/inhalers at home for some reason? 2) Elevated troponins Appears to be Type 2 in nature due to COPD Attempted stress test twice, but patient refused the stress portion due to not wanting the radiation, and second time not wanting to stress the heart Plan for outpt with Dr. Mart 3) EF < 20% ICD in place 4) Afib On Eliquis Rates controlled 5) No further cardiovascular workup Follow up with Dr. Mart (4) COPD (chronic obstructive pulmonary disease) Qualifiers: COPD type: unspecified COPD Qualified Code(s): J44.9 - Chronic obstructive pulmonary disease, unspecified
--- NOTE | 2018-03-30 13:40 | XR ---
EXAM DATE: 03/30/2018 1:29 PM EDT AGE/SEX: 67 years / Male INDICATIONS: Shortness of breath. CLINICAL DATA: This is the patient's subsequent encounter. Patient reports that signs and symptoms h ave been present for 3 days and indicates a pain score of 0/10. MEDICAL/SURGICAL HISTORY: Chronic obstructive pulmonary disease. Emphysema. CABG. Cardiac sten t. COMPARISON: C, CHEST 1V SINGLE AP, 03/27/2018. . FINDINGS: The cardiac silhouette is enlarged in transverse diameter. Median sternotomy wires are present. A bip olar pacemaker is in place via a left sided approach. There is no evidence of pneumonia. CONCLUSION: Cardiomegaly. No acute pulmonary disease. Electronically signed by: Santi Estevez MD 03/30/2018 1:39 PM EDT
--- NOTE | 2018-03-30 16:16 | P.PNIM ---
Subjective Interval history: Patient is feeling somewhat improved today, he has declined stress test twice to investigate elevated troponins. Physical Exam Vital signs: Vital Signs 03/29/18 20:00 03/29/18 20:45 03/30/18 00:00 Temperature 99 F 98.6 F Pulse Rate 75 80 69 Respiratory Rate 16 14 16 Blood Pressure 107/60 100/59 L Pulse Oximetry 94 L 95 95 03/30/18 02:00 03/30/18 04:00 03/30/18 08:00 Temperature 98.2 F 97.7 F Pulse Rate 87 84 99 H Respiratory Rate 17 16 18 Blood Pressure 114/75 125/90 Pulse Oximetry 94 L 95 03/30/18 09:00 03/30/18 09:13 03/30/18 12:00 Temperature 97.2 F L Pulse Rate 87 74 Respiratory Rate 19 Blood Pressure 106/68 Pulse Oximetry 91 L 94 L Intake & Output 03/29/18 03/30/18 03/30/18 18:59 06:59 18:59 Intake Total 1910 / 1910 1938 / 1938 832 / 832 Output Total 950 / 950 600 / 600 Balance 960 / 960 1338 / 1338 832 / 832 Weight 84.2 kg Intake: IV 950 / 950 1218 / 1218 832 / 832 NS Inj 1,000 ML @ 100 mls/hr IV 600 / 600 1218 / 1218 482 / 482 .CONT .Q10H [facility] Rx#:[id number] Azithromycin Inj 500 MG In NS 250 / 250 250 / 250 Inj 250 ML @ 250 mls/hr IV.SIG Q24H [facility] Rx#:[id number] Rocephin Inj 1,000 MG In NS Inj 100 / 100 100 / 100 100 ML @ 200 mls/hr IV.SIG Q24H [facility] Rx#:[id number] Oral 960 / 960 720 / 720 Output: Urine 950 / 950 600 / 600 Other: # Voids 3 # Bowel Movements 0 Narrative: GENERAL: No distress. SKIN: Warm and dry. HEAD: Atraumatic. Normocephalic. EYES: Pupils equal and round. No scleral icterus. No injection or drainage. ENT: No nasal bleeding or discharge. Mucous membranes pink and moist. NECK: Trachea midline. No JVD. CARDIOVASCULAR: Irregularly irregular. RESPIRATORY: Decreased breath sounds bilaterally, no wheezing. GASTROINTESTINAL: Abdomen soft, non-tender, nondistended. Hepatic and splenic margins not palpable. MUSCULOSKELETAL: Extremities without clubbing, cyanosis, or edema. No obvious deformities. NEUROLOGICAL: Awake and alert. No obvious cranial nerve deficits. Motor grossly within normal limits. Five out of 5 muscle strength in the arms and legs. Normal speech. Results - Labs CBC & Chem 7: 03/28/18 05:03 03/28/18 05:03 Laboratory Results - last 24 hr 03/29/18 03/29/18 03/30/18 16:53 20:11 07:39 POC Glucose 118 H 87 81 03/30/18 12:01 POC Glucose 189 H Microbiology 03/27/18 07:15 Blood - Peripheral Aerobic Blood Culture - Preliminary No growth in 3 days 03/27/18 07:15 Blood - Peripheral Anaerobic Blood Culture - Preliminary No growth in 3 days 03/27/18 07:20 Blood - Peripheral Aerobic Blood Culture - Preliminary No growth in 3 days 03/27/18 07:20 Blood - Peripheral Anaerobic Blood Culture - Preliminary No growth in 3 days - Imaging Impressions Chest X-Ray 03/30/18 00:00 CONCLUSION: Cardiomegaly. No acute pulmonary disease. Assessment and Plan - Plan COPD exacerbation/ Acute respiratory failure CTA negative for PE. He is on home oxygen. Continue on Duonebs, Mucinex, Symbicort, prednisone, incentive spirometry, azithromycin, Rocephin encourage ambulation. Continue PT/OT. IV fluids at 100 mL/h discontinued Atrial fibrillation/ History of pacemaker Rate controlled. Continue Coreg, continue Eliquis Continue telemetry Gait instability Secondary to his CVA. continue with physical therapy and occupational therapy. Elevated troponins/ Chronic systolic CHF Likely demand ischemia due to hypoxemia from COPD exacerbation Patient refused stress test for the second time today, echocardiogram shows ejection fraction less than 20% Continue aspirin, follow-up with outpatient production support developer for stress testing. Appreciate cardiology consult Elevated LFTs Improving, likely stress related Follow-up as outpatient DVT prophylaxis Tracy
[2018-03-30 18:03] LABS: Bilirubin,Urine Negative (Negative); Clarity,Urine Clear (Clear); Color,Urine Straw (Yellw/Straw); Glucose,Urine (UA) Negative (Negative); Leukocyte Esterase,Urine Negative (Negative); Mucus,Urine Few /lpf (Occasional); Nitrite,Urine Negative (Negative); Specific Gravity,Urine 1.006 (1.002-1.035); Squamous Epithelial Cell,Urine <1 /hpf (0-5)
[2018-03-31] MEDS: Insulin NovoLOG Aspart Correctional Sugar Inj SQ SCH ×3 (03:36→13:39)
[2018-03-31 06:45] LABS: Hematocrit 40.2 % (39.0-51.0); Mean Corpuscular HGB Conc 32.3 % (32.0-36.0); Mean Corpuscular Hemoglobin 29.1 pg (27.0-34.0); Mean Corpuscular Volume 90.2 fL (80.0-100.0); Mean Platelet Volume 9.3 fL (7.0-11.0); Platelet Count 160 th/mm3 (150-450); Red Blood Count 4.46 mil/mm3 (4.50-5.90); Red Cell Distribution Width 14.5 % (11.6-17.2); White Blood Count 8.4 th/mm3 (4.0-11.0)
[2018-03-31 06:55] LABS: Anion Gap 6 meq/L (5-15); Blood Urea Nitrogen 14 mg/dL (7-18); Carbon Dioxide 32.7 meq/L (21.0-32.0); Chloride 105 meq/L (98-107); Glomerular Filtration Rate Greater Than 89 mL/min (>89); Glucose,Random 86 mg/dL (74-106); Sodium 144 meq/L (136-145)
[2018-03-31] MEDS: Senna/Docusate Sodium 8.6/50 MG Tablet PO SCH (08:38)
[2018-03-31] MEDS: Famotidine 20 MG Tablet PO SCH (08:38)
[2018-03-31] MEDS: Azithromycin Inj 500 MG in Sodium Chlor 0.9% Inj 250 ML IV.SIG SCH (08:40)
[2018-03-31] MEDS: Carvedilol 6.25 MG Tablet PO SCH (09:46)
--- NOTE | 2018-03-31 12:30 | P.DCO ---
- Physical Therapy Order: Evaluate and treat - Home Health Nursing Order: Medical education, Signs/symptoms of disease process, Oxygen administration education, Medication education-adverse effect, Nursing assessment with vital signs - Certification I have seen patient Chaka Harris on 03/31/18. My clinical findings support the need for the requested home health care services because: Limited mobility due to disease progression, Patient has SOB, Deconditioned with increased weakness I certify that my clinical findings support that this patient is homebound because: Hx COPD - exertion dyspnea/weakness, Unsteady gait/balance, Unsafe to leave home unassisted
--- NOTE | 2018-03-31 12:32 | P.DS ---
Date of admission: 03/27/18 10:45 Primary care physician: [facility] Brief History from admission: Patient is a 67-year-old male who presented to the [facility] emergency department earlier this morning with a history of increasing shortness of breath that has been worse since yesterday. Patient normally uses 3 L by nasal cannula oxygen. Has had increasing shortness of breath has a history of COPD. He states he does not use any inhalers. Does not use any nebulizers. Denies taking any medications on a regular basis as he reports he does not like to take pills. The patient has a history of atrial fibrillation and history of coronary artery disease and history of previous cerebrovascular accident as well as hypertension and hyperlipidemia and COPD and history of CABG. He denies any nausea or vomiting or diarrhea. He denies any swelling in his lower extremities. He thinks that he has gained maybe 5-7 pounds from eating more than usual. Denies having any calf pain or swelling. Denies having any productive cough or coughing more than usual patient denies any fevers, denies any neck pain, denies any chest pain, denies any abdominal pain, denies any vomiting, denies any diarrhea, melena, denies any urinary symptoms, or any neurological symptoms. Patient normally only goes to the [place] [facility] DS: Medications - Discharge Medications Prescriptions: azithromycin 500 mg PO DAILY 7 Days #7 tab budesonide-formoterol [Symbicort] 2 puff INH BID 30 Days #1 g ipratropium-albuterol 1 amp NEB Q4HR NEB PRN 30 Days #1 box PRN Reason: Shortness Of Breath/Wheezing prednisone 1 packet PO PER PKG DIR 6 Days #1 pack DS: Summary Hospital Course: Male with a history of COPD who was admitted for COPD exacerbation. Has a history of coronary artery disease and had elevated troponins which seem to be more of a strain pattern from hypoxemia related to COPD exacerbation, he was seen by cardiology who recommended a cardiac stress test but has refused that for the last 3 days. 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 Mart as an outpatient and has been recommended that he follow-up with Dr. Mart in the next 2 weeks to obtain a stress test. Today he is resting comfortably on room air saturating at 96% while in bed. He has oxygen at home as baseline uses a walker for ambulation. I suggested that he have home health care for the next 2 weeks or so to evaluate his lung yanes as well as physical therapy to help improve his ambulation. He is agreed to this and is appropriate for discharge home. - Time Spent with Patient Total time spent providing and/or coordinating discharge services: Less than 30 minutes - Quality: VTE Deep Vein Thrombosis/Pulmonary Embolism Present on Admission: No Exam Vital signs: Vital Signs 03/30/18 16:00 03/30/18 20:00 03/31/18 00:00 Temperature 97.6 F 97.9 F 97.1 F L Pulse Rate 76 101 H 79 Respiratory Rate 19 20 18 Blood Pressure 131/60 119/60 109/72 Pulse Oximetry 96 93 L 91 L 03/31/18 04:00 03/31/18 08:00 03/31/18 08:22 Temperature 97.3 F L 97.4 F L Pulse Rate 65 94 H Respiratory Rate 20 20 Blood Pressure 113/75 118/73 Pulse Oximetry 95 94 L 95 03/31/18 09:00 Temperature Pulse Rate 69 Respiratory Rate Blood Pressure Pulse Oximetry Intake & Output 03/30/18 03/31/18 03/31/18 18:59 06:59 18:59 Intake Total 1792 / 1792 240 / 240 100 / 100 Output Total 1350 / 1350 600 / 600 Balance 442 / 442 -360 / -360 100 / 100 Weight 84.5 kg Intake: IV 832 / 832 100 / 100 NS Inj 1,000 ML @ 100 mls/hr IV 482 / 482 .CONT .Q10H [facility] Rx#:[id number] Azithromycin Inj 500 MG In NS 250 / 250 Inj 250 ML @ 250 mls/hr IV.SIG Q24H [facility] Rx#:[id number] Rocephin Inj 1,000 MG In NS Inj 100 / 100 100 / 100 100 ML @ 200 mls/hr IV.SIG Q24H [facility]E Rx#:[id number] Oral 960 / 960 240 / 240 Output: Urine 1350 / 1350 600 / 600 Other: # Bowel Movements 0 Results Procedures completed during hospitalization: none Labs on day of discharge: Labs from last 24 hours 03/31/18 03/31/18 03/31/18 07:56 05:58 05:58 WBC 8.4 RBC 4.46 L Hgb 13.0 Hct 40.2 MCV 90.2 MCH 29.1 MCHC 32.3 RDW 14.5 Plt Count 160 MPV 9.3 Sodium 144 Potassium 4.0 Chloride 105 Carbon Dioxide 32.7 H Anion Gap 6 BUN 14 Creatinine 0.83 Estimated GFR Greater than 89 POC Glucose 95 Random Glucose 86 Calcium 8.0 L Urine Color Urine Clarity Urine pH Ur Specific [place] Urine Protein Urine Glucose (UA) Urine Ketones Urine Occult Blood Urine Nitrate Urine Bilirubin Urine Urobilinogen Ur Leukocyte Esterase Ur Squamous Epith Cells Urine Mucus Micro UA Comment Ur Microscopic Review Urine Culture Comments 03/30/18 03/30/18 03/30/18 20:30 17:21 16:58 WBC RBC Hgb Hct MCV MCH MCHC RDW Plt Count MPV Sodium Potassium Chloride Carbon Dioxide Anion Gap BUN Creatinine Estimated GFR POC Glucose 230 H 110 Random Glucose Calcium Urine Color Straw Urine Clarity Clear Urine pH 5.0 Ur Specific [place] 1.006 Urine Protein Negative Urine Glucose (UA) Negative Urine Ketones Negative Urine Occult Blood Small H Urine Nitrate Negative Urine Bilirubin Negative Urine Urobilinogen Less than 2 Ur Leukocyte Esterase Negative Ur Squamous Epith Cells <1 Urine Mucus Few H Micro UA Comment Culture not ind Ur Microscopic Review Not Reportable Urine Culture Comments Culture not ind Preliminary micro results at discharge 03/27/18 07:15 Aerobic Blood Culture - Preliminary Blood - Peripheral No growth in 4 days Anaerobic Blood Culture - Preliminary No growth in 4 days 03/27/18 07:20 Aerobic Blood Culture - Preliminary Blood - Peripheral No growth in 4 days Anaerobic Blood Culture - Preliminary No growth in 4 days - Impressions ITS Impressions Chest CTA 03/27/18 07:52 CONCLUSION: No evidence of pulmonary embolism. Centrilobular emphysema Myocardial Perfusion Scan Nuc Med 03/28/18 00:00 CONCLUSION: 1. Multiple defects as described above. The findings could be related to ischemia or previous infarction. Chest X-Ray 03/30/18 00:00 CONCLUSION: Cardiomegaly. No acute pulmonary disease. Discharge Plan - Discharge Disposition Patient Disposition: /Home Health Service - Discharge Condition Condition: Stable - Discharge Order Discharge Orders: Discharge Order (Routine); Ordered 03/31/18 Ordered By: Apollo Cordon - Physicians Team Primary Care Provider: [facility] [place] Attending Provider: Apollo Cordon Other Providers: Davis Mart MD
[2018-03-31] MEDS: guaiFENesin 600 MG ER Tablet PO SCH (13:39)
[2018-03-31] MEDS: predniSONE 20 MG Tablet PO SCH (13:39)
[2018-03-31] MEDS: Budesonide-Formoterol 160/4.5 MCG 6 GM Inhaler INH SCH (13:39)
--- NOTE | 2018-03-31 13:41 | P.PNCA ---
Subjective Interval history: No events overnight Feels great Physical Exam Vital signs: Vital Signs 03/30/18 16:00 03/30/18 20:00 03/31/18 00:00 Temperature 97.6 F 97.9 F 97.1 F L Pulse Rate 76 101 H 79 Respiratory Rate 19 20 18 Blood Pressure 131/60 119/60 109/72 Pulse Oximetry 96 93 L 91 L 03/31/18 04:00 03/31/18 08:00 03/31/18 08:22 Temperature 97.3 F L 97.4 F L Pulse Rate 65 94 H Respiratory Rate 20 20 Blood Pressure 113/75 118/73 Pulse Oximetry 95 94 L 95 03/31/18 09:00 Temperature Pulse Rate 69 Respiratory Rate Blood Pressure Pulse Oximetry Intake & Output 03/30/18 03/31/18 03/31/18 18:59 06:59 18:59 Intake Total 1792 / 1792 240 / 240 100 / 100 Output Total 1350 / 1350 600 / 600 Balance 442 / 442 -360 / -360 100 / 100 Weight 84.5 kg Intake: IV 832 / 832 100 / 100 NS Inj 1,000 ML @ 100 mls/hr IV 482 / 482 .CONT .Q10H [facility] Rx#:[id number] Azithromycin Inj 500 MG In NS 250 / 250 Inj 250 ML @ 250 mls/hr IV.SIG Q24H [facility] Rx#:[id number] Rocephin Inj 1,000 MG In NS Inj 100 / 100 100 / 100 100 ML @ 200 mls/hr IV.SIG Q24H [facility] Rx#:[id number] Oral 960 / 960 240 / 240 Output: Urine 1350 / 1350 600 / 600 Other: # Bowel Movements 0 Narrative: GENERAL: No distress. SKIN: Warm and dry. HEAD: Atraumatic. Normocephalic. EYES: Pupils equal and round. No scleral icterus. No injection or drainage. ENT: No nasal bleeding or discharge. Mucous membranes pink and moist. NECK: Trachea midline. No JVD. CARDIOVASCULAR: Irregularly irregular. RESPIRATORY: Decreased breath sounds bilaterally, no wheezing. GASTROINTESTINAL: Abdomen soft, non-tender, nondistended. Hepatic and splenic margins not palpable. MUSCULOSKELETAL: Extremities without clubbing, cyanosis, or edema. No obvious deformities. NEUROLOGICAL: Awake and alert. No obvious cranial nerve deficits. Motor grossly within normal limits. Five out of 5 muscle strength in the arms and legs. Normal speech. Assessment and Plan - Assessment (1) History of automatic internal cardiac defibrillator (AICD) Status: Acute (2) Afib Code(s): I48.91 - Unspecified atrial fibrillation Status: Acute (3) Elevated troponin Code(s): R74.8 - Abnormal levels of other serum enzymes Status: Acute (4) COPD (chronic obstructive pulmonary disease) Code(s): J44.9 - Chronic obstructive pulmonary disease, unspecified Status: Acute - Plan 1) SOB secondary to COPD exacerbation Feeling better after nebulizers Not on nebulizers/inhalers at home for some reason? Per primary team will send him home on 2) Elevated troponins Appears to be Type 2 in nature due to COPD Attempted stress test twice, but patient refused the stress portion due to not wanting the radiation, and second time not wanting to stress the heart Plan for outpt with Dr. Mart 3) EF < 20% ICD in place 4) Afib On Eliquis Rates controlled 5) No further cardiovascular workup Follow up with Dr. Mart (4) COPD (chronic obstructive pulmonary disease) Qualifiers: COPD type: unspecified COPD Qualified Code(s): J44.9 - Chronic obstructive pulmonary disease, unspecified
== END 2018-03-31 13:09 | disposition home health service (06) ==
LOC: NEPC 06:00 → INTOOBSV 10:45 → NEDA 10:45 → N04 14:50
PROVIDERS: ADMIT Family Medicine; ATTEND Family Medicine
DX: G89.29 Other chronic pain; J96.01 Acute respiratory failure with hypoxia; J44.1 Chronic obstructive pulmonary disease with (acute) exacerbation; Z79.01 Long term (current) use of anticoagulants; Z87.891 Personal history of nicotine dependence; Z86.73 Personal history of transient ischemic attack (TIA), and cerebral infarction without residual deficits; I73.9 Peripheral vascular disease, unspecified; I11.0 Hypertensive heart disease with heart failure; Z82.49 Family history of ischemic heart disease and other diseases of the circulatory system; Z95.810 Presence of automatic (implantable) cardiac defibrillator; I48.91 Unspecified atrial fibrillation; Z99.81 Dependence on supplemental oxygen; E78.5 Hyperlipidemia, unspecified; I25.10 Atherosclerotic heart disease of native coronary artery without angina pectoris; Z79.82 Long term (current) use of aspirin; E11.9 Type 2 diabetes mellitus without complications; I50.22 Chronic systolic (congestive) heart failure; R26.9 Unspecified abnormalities of gait and mobility